=== PATIENT | male | born 1945 | race Caucasian/White ===

== ENCOUNTER 2019-07-06 20:52 | Inpatient (IN) | payer MEDICARE, SELFPAY ==
[2019-07-06] VITALS (9 sets, daily range): BP systolic 110–142; BP diastolic 75–99; PULSE 85–130; RESP 11–18; TEMP 36.7; O2SAT 96–99; BMI 26.3
--- NOTE | 2019-07-06 21:08 | EKG12_ITS ---
Test Reason : CHEST PAIN Blood Pressure : / mmHG Vent. Rate : 069 BPM Atrial Rate : 069 BPM P-R Int : 170 ms QRS Dur : 124 ms QT Int : 408 ms P-R-T Axes : 029 -45 065 degrees QTc Int : 437 ms Sinus rhythm with Premature atrial complexes Left axis deviation Right bundle branch block Nonspecific ST/T wave Abnormality Abnormal ECG Confirmed by MALU COLIN, BRITTANY ([id number]), scientific publications editor WALDO MONGE ([id number]) on 07/08/2019 9:40:33 AM Referred By: KIMBERLY Confirmed By:BRITTANY TORIBIO MD
--- NOTE | 2019-07-06 21:08 | ED.DCSUM_ITS ---
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 Not Worsened By: Movement of Arm, Movement of Torso, Breathing, Coughing Relieved By: NTG - x1 Associated Symptoms: Diaphoresis - hands. Negative for: Dyspnea, Cough, Fever, Lightheadedness, Palpitations Narrative: Patient had an episode similar to this yesterday, lasted 15-20 minutes but resolved on its own. Today it occurred with more intensity so he called 911, he was given aspirin to chew and nitroglycerin it resolved. He states then it returned for a couple minutes but resolved again and now it is gone and he feels better. No history of heart disease. Never had a stress test. Does not take aspirin. Prior Similar Symptoms: No Recent Illness/Hospitalization: No - Past Medical History (1) HTN (hypertension) Status: Chronic Past Medical History - Allergies and Home Meds Allergies/Adverse Reactions: Allergies No Known Allergies Allergy (Verified 07/06/19 20:58) Primary Care Physician: Ac Crump MD [Primary Care Provider] - Lives: Spouse/ Significant Other Smoking Status: Former smoker - quit 03/2019 Alcohol: Occasional Review of Systems General: Reports: Sweats. Denies: Chills, Fever Eyes: Denies: Visual changes - bilaterally, Diplopia ENT: Denies: Rhinorrhea, Sore throat Cardiovascular: Reports: Chest pain. Denies: Palpitations Respiratory: Denies: Dyspnea, Cough, Dyspnea on exertion Gastrointestinal: Denies: Abdominal pain, Nausea, Vomiting, Diarrhea, Melena, Hematochezia Genitourinary: Denies: Dysuria, Hematuria, Frequency Musculoskeletal: Denies: Back pain, Swelling, Extremity Pain Skin: Denies: Rash, Wounds Neurological: Denies: Headache, Weakness, Numbness Physical Exam Vital Signs/Narrative: Vital Signs Temp Pulse Resp BP Pulse Ox 07/06/19 20:53 98.1 F 85 14 132/85 H 97 Inital Vital Signs reviewed: Yes General: Well nourished, Well developed, No Acute Distress Head: Normocephalic, Atraumatic Eyes: Perrl, EOMI ENT: Moist mucous membranes, No rhinorrhea Neck: Supple, Nontender, No JVD Cardiovascular: Regular rate, Regular rhythm, No murmurs, Normal S1, Normal S2 Respiratory: No distress, CTA bilaterally, Chest nontender Abdomen: Soft, Nontender, Nondistended, Normal bowel sounds Back: Nontender, Normal Inspection Extremities: Nontender, No edema. Negative for: Calf Tenderness Skin: Normal color, No rash, No Trauma Neurological: Alert, Oriented x3, Cranial nerves II-XII grossly intact, Normal Strength, Normal Sensation Psychological: Normal affect, Normal Mood Diagnostic/Tx/Re-eval Impressions Chest X-Ray 07/06/19 21:11 IMPRESSION: No acute cardiopulmonary process. Electronically Signed: Sloane Bhatt MD at 21:38 EDT Tel , Service support , 07/06/19 21:11 Chest 1 View (Portable) [RAD] Stat Laboratory Results 07/06/19 07/06/19 20:58 20:58 WBC 8.3 RBC 4.89 Hgb 16.4 Hct 47.7 MCV 97.5 H MCH 33.5 H MCHC 34.4 RDW Std Deviation 47.4 H RDW Coeff of Channing 13.2 Plt Count 176 MPV 10.0 Immature Gran % (Auto) 0.400 Neut % (Auto) 43.0 L Lymph % (Auto) 43.8 H [place] % (Auto) 10.0 Eos % (Auto) 2.1 Baso % (Auto) 0.7 Absolute Neuts (auto) 3.6 Absolute Lymphs (auto) 3.63 Nucleated RBC % 0 Sodium 138 Potassium 3.5 Chloride 101 Carbon Dioxide 29.0 Anion Gap 8 BUN 16 Creatinine 1.14 Estim Creat Clear Calc 69.10 Est GFR (MDRD) Af Amer 81 Est GFR (MDRD) Non-Af 67 BUN/Creatinine Ratio 14.0 Glucose 100 Calcium 9.4 Troponin I 1.220 H* - Rhythm Strip Rhythm Strip: Sinus Rhythm Rate: 69 Ectopy: None - EKG Initial EKG Interpretation: Sinus Rhythm, S-T Elevation - convex 1mm in V3-[address] depression. 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 Fererira, and sent him the EKGs securely, electronically. Given that the patient is pain-free currently, he recommends not taking him to the [facility] emergently based on this EKG, but admitting him to the hospital on a nitroglycerin drip, Plavix 300 mg load, Lovenox, for unstable angina. Shortly thereafter, prior to starting the nitroglycerin drip, patient started going into rapid A. fib in the 140 range. He developed no chest discomfort or lightheadedness or palpitations or any other symptoms with this. He would then suddenly break out of it and then go back in. He remained in for little while. I discussed with Dr. Ferreira again, he advised treating him with Lopressor for now and staying with the same overall plan. I am holding nitroglycerin for now given that his pressure dropped a little with the atrial fib and he is tachycardic. After the beta-blockade, we brought his heart rate under 100, his blood pressure went up and we started a nitroglycerin drip. The patient remained symptom-free including having no chest discomfort. Plan is admission. Discussed with hospitalist. Critical care time (excluding procedures): 30-74 minutes - 35 min, including time spent discussing with patient, consultants, arranging admission, and performing direct patient care/reevaluation at the bedside ED Disposition - Plan for ED Patient: Disposition: [facility] Care [facility] Diagnosis: Acute coronary syndrome, Paroxysmal atrial fibrillation with RVR Referrals: Ac Crump MD [Primary Care Provider] -
--- NOTE | 2019-07-06 21:11 | RAD_ITS ---
STUDY: X-RAY CHEST REASON FOR EXAM: Male, 73 years old. Chest pain. Starting while resting as sternal pressure. Denies radiation or nausea. TECHNIQUE: 2 frontal images of the chest were obtained. COMPARISON: None. FINDINGS: There is no focal consolidation. Normal size heart. Normal mediastinum and theresa. Normal visualized pulmonary arteries. Normal visualized aortic arch and descending thoracic aorta. Normal visualized thoracic spine. Normal visualized ribs, clavicles, and shoulders. There is no demonstrated abnormality of the visualized soft tissue structures of the upper abdomen. RAD/Chest 1 View (Portable) IMPRESSION: No acute cardiopulmonary process. Electronically Signed: Sloane Bhatt MD at 21:38 EDT Tel , Service support ,
[2019-07-06 21:17] LABS: Absolute Lymphocyte Count 3.63 X10^3/uL (0.83-4.51); Absolute Neutrophil Count 3.6 X10^3/uL (2.0-7.7); Basophil# 0.06 X10^3/uL; Basophil% 0.7 % (0-1); Eosinophil# 0.17 X10^3/uL; Eosinophils% 2.1 % (0-5); Hematocrit 47.7 % (40-54); Hemoglobin 16.4 g/dL (13.0-16.5); Lymphocyte # 3.63 X10^3/ul (4.0); Lymphocyte % 43.8 % (19-41); Mean Corp Hgb Conc 34.4 g/dL (32-36); Mean Corpuscular Hgb 33.5 pg (27.0-32.0); Mean Corpuscular Volume 97.5 fL (80-94); Monocyte# 0.83 X10^3/uL; NRBC Flagged by Analyzer 0 % (0-5); Neutrophil # 3.56 X10^3/uL (2.7-7.7); Platelet Count 176 K/mm3 (150-450); RBC Distribution Width CV 13.2 % (11.6-14.6); RBC Distribution Width SD 47.4 fl (35.1-43.9); Red Blood Count 4.89 M/mm3 (4.6-6.2); White Blood Count 8.3 K/mm3 (4.4-11.0)
[2019-07-06] MEDS: Enoxaparin 100 MG/ML Syringe 90 MG SC (21:19)
[2019-07-06] MEDS: Clopidogrel Bisulfate 300 MG Tablet PO (21:20)
[2019-07-06] MEDS: 0.9% Normal Saline 1,000 ML 999 ML IV (21:20)
[2019-07-06] MEDS: 0.9% Normal Saline 1,000 ML 250 ML IV (21:24)
[2019-07-06 21:39] LABS: Anion Gap 8 (5-15); BUN 16 mg/dL (7-18); Calcium,Total 9.4 mg/dL (8.5-10.1); Chloride 101 mmol/L (98-107); Creatinine, Serum 1.14 mg/dL (0.70-1.30); EST Glomerular Filtration Rate 67 mL/min (>60); Est Glom Filt Rate - Afr Amer 81 mL/min (>60); Glucose 100 mg/dL (74-106); Potassium 3.5 mmol/L (3.5-5.1); Sodium Level 138 mmol/L (136-145)
[2019-07-06] MEDS: Metoprolol Tartrate 5 MG/5 ML Vial IV ×3 (21:44→22:48)
--- NOTE | 2019-07-06 22:02 | EKG12_ITS ---
Test Reason : TACHYCARDIA Blood Pressure : / mmHG Vent. Rate : 136 BPM Atrial Rate : 153 BPM P-R Int : 000 ms QRS Dur : 116 ms QT Int : 326 ms P-R-T Axes : 000 -48 -12 degrees QTc Int : 490 ms Atrial fibrillation Left axis deviation [id number] ST & T wave abnormality, consider anterior ischemia Abnormal ECG Confirmed by MALU COLIN, BRITTANY ([id number]), television news video editor WALDO MONGE ([id number]) on 07/08/2019 9:40:55 AM Referred By: KIMBERLY Confirmed By:BRITTANY TORIBIO MD
[2019-07-06] MEDS: Nitroglycerin Infusion 250 ML 1.5 MG CONT INF (22:07)
--- NOTE | 2019-07-06 23:06 | HP.PCM_ITS ---
Problem List (1) HTN (hypertension) Status: Chronic (2) Acute coronary syndrome Status: Acute (3) Paroxysmal atrial fibrillation with RVR Status: Acute History of Present Illness Date of Admission: 07/06/19 Chief Complaint: chest pain The patient is a 73 year old male patient with a significant past medical history of hypertension presents the emergency room with onset of chest pain. The onset of this pain began at 7:00 this evening while he was sitting on a couch watching television and was nonradiating. The pain was alleviated with nitroglycerin and oxygen. During observation in the emergency room the patient developed atrial fibrillation with rapid ventricular response which was controlled with a dose of Lopressor. Chest x-ray was negative for acute find ings, white blood cell count 8.3, hemoglobin 16.4, hematocrit 47.7, platelets 176, sodium 138, potassium 3.5, chloride 101, bicarb 29, BUN 16, creatinine 1.14, glucose 100, troponin elevated at 1.220. ER physician consulted bit grinder who decided to have the patient admitted to PCU and made n.p.o. for catheterization in the morning. Past Medical History Past Medical History (Chronic Problems): Chronic Problems HTN (hypertension) (Chronic) Allergies No Known Allergies Allergy (Verified 07/06/19 20:58) Home Medications: Ambulatory Orders Medication Instructions Recorded Amlodipine [Norvasc] 10 mg PO DAILY 03/02/15 Lives: Spouse/ Significant Other Smoking Status: Former smoker - quit 03/2019 Alcohol: Occasional - *Family History Maternal History Items: No pertinent history Review of Systems Constitutional: Denies: Chills, Fever, Weight Change HEENT: Denies: Head Aches, Sinus Congestion, Sinus Drainage Cardiovascular: Reports: Chest Pain, Chest Pressure. Denies: Palpitations Respiratory: Denies: Cough, Shortness of breath at rest, Sputum production Gastrointestinal: Denies: Abdominal Pain, Nausea, Vomiting Genitourinary: Denies: Dysuria Musculoskeletal: Denies: Joint Pain, Joint Tenderness Skin: Denies: Rash, Wounds Neurological: Denies: Numbness, Tingling, Focal weakness Psychiatric: Denies: Anxiety, Depression, Homicidal Ideations, Suicidal Ideations Hematologic/ Lymphatic: Denies: Easy Bruising, Easy Bleeding VTE Information - Inpt Only VTE Present on Admission: No VTE Mechan Device Prophylaxis: None VTE Pharm Prophylaxis ordered?: Yes Patient Problems: Active and Suspected Problems Acute coronary syndrome (Acute) Paroxysmal atrial fibrillation with RVR (Acute) - Physical Exam Vitals/I&O's: Vital Signs Temp Pulse Resp BP Pulse Ox 98.1 F 115 H 17 121/78 H 98 07/06/19 20:53 07/06/19 22:57 07/06/19 22:57 07/06/19 22:57 07/06/19 22:57 Oxygen Flow Rate (L/min) 2 Oxygen Delivery Method Nasal Cannula Weight: 205 lb 0.478 oz Body Mass Index (BMI) 26.3 Intake and Output for Last 24 Hours 07/04/19 07/05/19 07/06/19 23:59 23:59 23:59 Intake Total 1000 / 1000 Balance 1000 / 1000 General: Alert, Oriented x3, Cooperative HEENT: Atraumatic, Normocephalic Neck: Supple Lungs: Clear to auscultation, Normal air movement Cardiovascular: Normal S1, Normal S2, No murmurs, Irregular Rate Abdomen: Bowel Sounds Present, Soft, Non Tender Extremities: No edema, Capillary Refill Less than 3 Seconds Skin: No rashes Musculoskeletal: No Tenderness to Palpation of Joints or Extremities Neurological: Neuro grossly intact Psych/Mental Status: Normal Affect, Appropriate Laboratory Results 07/06/19 20:58: WBC 8.3, RBC 4.89, Hgb 16.4, Hct 47.7, MCV 97.5 H, MCH 33.5 H, M CHC 34.4, RDW Std Deviation 47.4 H, RDW Coeff of Channing 13.2, Plt Count 176, MPV 10.0, Immature Gran % (Auto) 0.400, Neut % (Auto) 43.0 L, Lymph % (Auto) 43.8 H, Lucas % (Auto) 10.0, Eos % (Auto) 2.1, Baso % (Auto) 0.7, Absolute Neuts (auto) 3.6, Absolute Lymphs (auto) 3.63, Nucleated RBC % 0 07/06/19 20:58: Sodium 138, Potassium 3.5, Chloride 101, Carbon Dioxide 29.0, Anion Gap 8, BUN 16, Creatinine 1.14, Estim Creat Clear Calc 69.10, Est GFR (MDRD) Af Amer 81, Est GFR (MDRD) Non-Af 67, BUN/Creatinine Ratio 14.0, Glucose 100, Calcium 9.4, Troponin I 1.220 H* Current Medications Sodium Chloride () 1,000 mls @ 250 mls/hr IV .Q4H [facility] Last Admin: 07/06/19 21:24 Dose: 250 mls/hr Documented by: Nitroglycerin/Dextrose () 250 mls @ 3 mls/hr CONT INF .[id number] [facility]; Protocol Last Admin: 07/06/19 22:03 Dose: Not Given Documented by: Nitroglycerin/Dextrose () 250 mls @ 1.5 mls/hr CONT INF .[id number] [facility]; Protocol Last Admin: 07/06/19 22:07 Dose: 2.5 mcg/min, 1.5 mls/hr Documented by: Sodium Chloride () 1,000 mls @ 999 mls/hr IV .Q1H1M ONE Stop: 07/06/19 23:23 Last Infusion: 07/06/19 22:25 Dose: Infused Documented by: Assessment/Plan All Active Problems Acute coronary syndrome (Acute) Paroxysmal atrial fibrillation with RVR (Acute) Chronic Problems HTN (hypertension) (Chronic) Plan 1. Acute coronary syndrome?admit to progressive care unit, make patient n.p.o., consult Dr. Ferreira, plan catheterization in the morning, cycle cardiac enzymes, will order morphine, oxygen, nitroglycerin, aspirin 2. Atrial fibrillation?monitor for rate control, will cover with low molecular weight heparin 1 dose this evening and can decide long-term strategy based on results of tomorrow's heart catheterization. 3. Hold Norvasc while n.p.o. for hypertension Inpatient E&M: [id number] Init Hosp L3
[2019-07-07] VITALS (41 sets, daily range): BP systolic 110–150; BP diastolic 69–108; PULSE 57–115; RESP 11–20; TEMP 36.7–37.2; O2SAT 88–98; BMI 25.4; BMI 26.3
--- NOTE | 2019-07-07 00:15 | EKG12_ITS ---
Test Reason : CP ADMIT Blood Pressure : / mmHG Vent. Rate : 063 BPM Atrial Rate : 063 BPM P-R Int : 190 ms QRS Dur : 112 ms QT Int : 500 ms P-R-T Axes : 007 -43 006 degrees QTc Int : 511 ms Sinus rhythm with Premature atrial complexes Left axis deviation T wave abnormality, consider anterolateral ischemia Prolonged QT Abnormal ECG When compared with ECG of 08-MAR-2015 06:48, Premature atrial complexes are now Present Nonspecific T wave abnormality now evident in Inferior leads T wave inversion now evident in Anterior leads QT has lengthened Confirmed by ERIKA COLIN, LISA ([id number]), editor news USHA BANSAL ([id number]) on 07/14/2019 2:27:46 PM Referred By: DR THOMAS Confirmed By:DOMINIQUE JAMES MD
[2019-07-07] MEDS: 0.9% Normal Saline 1,000 ML 125 ML IV (00:45)
[2019-07-07 03:55] LABS: Absolute Lymphocyte Count 2.11 X10^3/uL (0.83-4.51); Absolute Neutrophil Count 3.7 X10^3/uL (2.0-7.7); Basophil# 0.03 X10^3/uL; Basophil% 0.5 % (0-1); Eosinophil# 0.09 X10^3/uL; Eosinophils% 1.4 % (0-5); Hematocrit 42.2 % (40-54); Hemoglobin 14.3 g/dL (13.0-16.5); Lymphocyte # 2.11 X10^3/ul (4.0); Lymphocyte % 32.1 % (19-41); Mean Corp Hgb Conc 33.9 g/dL (32-36); Mean Corpuscular Hgb 32.6 pg (27.0-32.0); Mean Corpuscular Volume 96.1 fL (80-94); Mean Platelet Vol. 9.8 fl (6.2-12.0); Monocyte# 0.61 X10^3/uL; Monocyte% 9.3 % (0-10); NRBC Flagged by Analyzer 0 % (0-5); Neutrophil # 3.72 X10^3/uL (2.7-7.7); Neutrophil % 56.4 % (47-70); Platelet Count 192 K/mm3 (150-450); RBC Distribution Width SD 46.5 fl (35.1-43.9); Red Blood Count 4.39 M/mm3 (4.6-6.2); White Blood Count 6.6 K/mm3 (4.4-11.0)
[2019-07-07 04:04] LABS: Prothrombin Time (Protime)PT. 13.4 SECONDS (11.7-14.9)
[2019-07-07 04:30] LABS: Anion Gap 8 (5-15); BUN 12 mg/dL (7-18); BUN/Creat Ratio 16.7 RATIO (10-20); Calcium,Total 8.1 mg/dL (8.5-10.1); Chloride 109 mmol/L (98-107); Cholesterol 134 mg/dL (200); Creatinine, Serum 0.72 mg/dL (0.70-1.30); EST Glomerular Filtration Rate 114 mL/min (>60); Est Glom Filt Rate - Afr Amer 138 mL/min (>60); Estimated Creatinine Clearance 80.98 ml/min; Glucose 106 mg/dL (74-106); High Density Lipoprotein 65 mg/dL; Potassium 3.9 mmol/L (3.5-5.1); Sodium Level 141 mmol/L (136-145); Triglycerides 74 mg/dL; Very Low Density Lipoprotein 15 mg/dL (5-40)
--- NOTE | 2019-07-07 05:55 | EKG12_ITS ---
Test Reason : AM EKG Blood Pressure : / mmHG Vent. Rate : 065 BPM Atrial Rate : 065 BPM P-R Int : 184 ms QRS Dur : 114 ms QT Int : 488 ms P-R-T Axes : 000 -43 026 degrees QTc Int : 507 ms Sinus rhythm with Premature atrial complexes Left axis deviation T wave abnormality, consider anterolateral ischemia Prolonged QT Abnormal ECG When compared with ECG of 07-JUL-2019 00:58, MANUAL COMPARISON REQUIRED, DATA IS UNCONFIRMED Confirmed by ERIKA COLIN, LISA ([id number]), news editor USHA BANSAL ([id number]) on 07/14/2019 2:29:03 PM Referred By: XIN Confirmed By:DOMINIQUE JAMES MD
[2019-07-07] MEDS: Aspirin E.C. 81 MG Tablet PO (06:14)
--- NOTE | 2019-07-07 08:59 | CL.I_ITS ---
Patient Name: FADY TERRY Study Date: 07/07/2019 Performing: Titus Ferreira MD Ht: 75.19 inches 191 cm : 1945 Wt: 205.03 lbs 93 kg Age: 73 Gender: male BSA: 2.22 PROCEDURE(S) PERFORMED QQ10-ACA/COR/LV [id number] W OR WO PTCA, SINGLE CORONARY ARTERY [id number] AORTAGRAM CLINICAL PROFILE AND CO-MORBIDITIES Patient presents with NSTEMI for urgent cardiac cath Indications: New Onset Angina <= 2 months, Worsening Angina, Suspected CAD, Cardiac Arrythmia Heart Failure: None Stress/Imaging Stress/Image Study Performed: No Angina Classification Anginal Classification w/in 2 Weeks: CCS III CAD Presentations: Unstable angina. Non-STEMI. 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 RECOMMENDATIONS Referred for immediate PCI Management as per referring Display Department Manager Highly recommend quitting all tobacco products Follow up with primary diesel scoop operator Risk factor modification ASA Indefinitley Plavix for at least 12 months Routine post interventional care Refer for Outpatient Cardiac Rehab Manual sheath removal per protocol Follow up with Dr. Ferreira Manual sheath removal as pt is too shallow for closure. DESCRIPTION OF PROCEDURE The patient arrived to the procedure lab. The risks and benefits of the procedure as well as a full d escription of our services here and lack of surgical backup were fully explained to the patient and/o r their significant other prior to the catheterization. The Timeout was completed, verifying the gloria ect patient and procedure. The patient's procedural site was prepped and draped in the usual fashion. Local anesthetic was given subcutaneously to right groin region with Lidocaine 2%. Using a modified Seldinger technique, arterial access was obtained via the right femoral artery, a 4Fr sheath was inse rted. Left Coronary Artery selective angiography was performed in multiple views using a 4 Fr. JL5 c atheter. Right Coronary Artery selective angiography was then performed in multiple views using a 4 F r. 3DRC catheter. Left Ventriculography was performed in LAWLER projection using a 4 Fr. Pigtail cathete r. LV to AO pullback pressures were then recorded. Abdominal aorta selective angiography was then performed in single viewThe images were reviewed and options discussed. A decision was then made to proceed with an Intervention, IVUS or other adjunct procedure. Arterial sheath was exchanged for a 6 Fr 55cm Sheath. EBU 3.75 Guide catheter was inserted and en gaged into the LCA. Hubbard BMW Guide wire was advanced to the LAD. Emerge 2.0 x 12 Balloon cathete r was inserted. Balloon catheter was advanced across lesion in the LAD, mid. PTCA balloon inflated at 6 atms for 14 secs. PTCA balloon inflated at 8 atms for 13 secs. Angiogram performed post balloon di latation. PTCA balloon inflated at 10 atms for 17 secs. PTCA balloon inflated at 10 atms for 10 secs. Synergy 2.5 x 16 Drug Eluting stent was inserted. Drug Eluting stent was advanced across the lesion in the LAD, mid. Angiogram performed post stent deployment. NC Emerge 3.0 x 8 Balloon catheter was in serted. Balloon catheter was advanced across lesion in the LAD, mid. Angiogram performed pre balloon dilatation. Angiogram performed post balloon dilatation. NC Emerge 3.5 x 8 Balloon catheter was inser heri. Balloon catheter was advanced across lesion in the LAD, mid. Angiogram performed pre balloon dilatation. Arterial sheath was exchanged for a 7 Fr Sheath. The arterial sheath was suture d in place and capped CORONARY ANGIOGRAPHY DOMINANCE: Right Dominant LEFT HEART ASSESSMENT Left Ventricular Ejection Fraction: by LV Gram 65 % Normal Left Ventricular systolic function LVEDP: 24 mmHg Elevated Left Ventricular End Diastolic Pressure Normal LV wall motion LEFT MAIN: Mild calcification LEFT ANTERIOR DESCENDING ARTERY: PROX LAD: Mild luminal irregularities less than 30%, Moderate calcification MID LAD: Mild calcification, 75 % Stenosis, Mild luminal irregularities less than 30% DISTAL LAD: Mild luminal irregularities less than 30% CIRCUMFLEX ARTERY: Mild luminal irregularities less than 30% RIGHT CORONARY ARTERY: Mild luminal irregularities less than 30% MID RCA: Mild luminal irregularities less than 30% RT PDA: Proximal - Mild luminal irregularities less than 30% PERIPHERAL FINDINGS: Abdominal 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 Artery Tortuous Left Common Iliac Artery Tortuous INTERVENTION INFORMATION LESION SITE: LAD (Mid) Lesion Complexity: Non-High/Non-C, lesion at bifurcation: No, thrombus present: No, lesion length: 16 mm, culprit lesion: Yes Pre Stenosis: 75 % Pre intervention JAIRO flow: 3 Post Stenosis: 0 % Post intervention JAIRO flow: 3 Lesion Devices: Jorge L Sci EMERGE MR 2.00x12 BALLOON Cotter .014 BMW Hubbard Straight 190cm Cook 6F 55cm Sheath Medtronic 6 Fr EBU3.75 100cm Guide Catheter Jorge L Sci Synergy MR JADE 2.50x16 Jorge L Sci NC EMERGE MR 3.00x08 BALLOON Jorge L Sci NC EMERGE MR 3.50x08 BALLOON COMPLICATIONS No Complications PROCEDURE MEDICATIONS Oxygen: 2 L/min via nasal cannula Heparin 6000 unit(s) IV 07/07/2019 08:21:19 Nitro drip 2.5mcg/min ^FreeText^ 07/07/2019 07:51:22 Nitro 200 mcg IC 07/07/2019 08:24:59 Nitro 200 mcg IC 07/07/2019 08:38:41 Nitro glycerin 25mg / 250ml D5W @ 5 mcg/min (increased rate) 07/07/2019 08:47:40 Plavix 75 mg PO 07/07/2019 07:50:04 IV Bolus: .9 NaCl ml total 07/07/2019 08:29:10 SUMMARY OF HEMODYNAMIC DATA Time AIR REST ECG 07:48:14 AO 146/81 (107) SA 08:11:04 LV 161/-7, 22 08:17:22 LV 160/-13, 30 08:17:29 LVp 158/-15, 19 08:17:36 AOp 156/76 (110) 08:17:41 Signed By Titus Ferreira MD On 07/07/2019 08:59:15 Titus Ferreira MD
[2019-07-07 09:11] LABS: ACT Activated Clotting Time 202 sec (74-137)
[2019-07-07] MEDS: 0.9% Normal Saline 1,000 ML 150 ML IV (09:30)
--- NOTE | 2019-07-07 09:49 | EKG12_ITS ---
Test Reason : POST PCI Blood Pressure : / mmHG Vent. Rate : 066 BPM Atrial Rate : 066 BPM P-R Int : 182 ms QRS Dur : 112 ms QT Int : 476 ms P-R-T Axes : -06 -49 012 degrees QTc Int : 499 ms Sinus rhythm with Premature atrial complexes Left axis deviation T wave abnormality, consider anterior ischemia Prolonged QT Abnormal ECG When compared with ECG of 07-JUL-2019 05:29, MANUAL COMPARISON REQUIRED, DATA IS UNCONFIRMED Confirmed by ERIKA COLIN, LISA ([id number]), editorial director USHA BANSAL ([id number]) on 07/14/2019 2:26:29 PM Referred By: SHARON Confirmed By:DOMINIQUE JAMES MD
--- NOTE | 2019-07-07 10:44 | CASEMGMT ---
RN CM Assessment Note Presentation: PTCA mid LAD Intro role of CM and purpose of RN CM assessment to patient in room. Pt is awake, alert and able to participate in assessment. Demographics, PCP and Pharmacy verified. Pt plans to return home. Pt still works, discussed physician will let him know when he is able to return to work. Pt denies any dc needs. PCP: Dr. Crump Specialists: Dr. Ferreira Preferred [facility]acy: [facility] Insurance: [place] [facility] Prescription Benefit: yes. Plavix planned on dc. LNOK : , Ana María Galicia Living Arrangements: Lives independently with .Denies any care needs. Transportation: drives DME: none HHC: none Patient DC goals: Home on dc DC PLAN: Home. No dc needs identified @ this time. Soheila BENJAMINN RN ACM
--- NOTE | 2019-07-07 11:01 | CRPHASE1 ---
Patient Communication PHII Cardiac Rehab Discussed with Patient:: Yes Guide to Cardiac Rehab Given to Patient:: Yes Cardiac Rehab Facility Choice List Given to Patient:: Yes - Patient states he resides closest to [facility] Choice Program Other:: Communication Given to CR, With permission faxed order and referral information Record Cutter:: Titus Ferreira Refer Phase II Cardiac Rehab:: Yes - [facility] Sessions:: 36 sessions - 3 days/wk, 12 weeks Risk Factors/Lifestyle Laboratory Values: Cardiac Rehab Phase I Labs Triglycerides 74 mg/dL (-199) 07/07/19 03:43 Cholesterol 134 mg/dL (200) 07/07/19 03:43 LDL Cholesterol 54 mg/dL (0-130) 07/07/19 03:43 HDL Cholesterol 65 mg/dL (40-) 07/07/19 03:43 Cardiac Rehabilitation Info Cardiac Rehabilitation Program Information: Cardiac Rehabilitation is important for patients like you who are recovering from a heart problem. Cardiac rehabilitation programs are recognized as integral to the continued care of the patient with coronary heart disease. The cardiac rehabilitation program is designed to optimize a patient's physical, psychological, and social functioning. Health healthcare insurance sales agent work in cardiac rehabilitation programs and assist you with getting the treatments you need to get stronger and healthier - like exercise, healthy eating habits, and medications. Cardiac rehabilitation has been show to help people with heart problems live longer and have better life enjoyment than people who do not go to cardiac rehabilitation. Please contact the Cardiac Rehabilitation Program at [facility] at in two weeks if you have not heard from them.
--- NOTE | 2019-07-07 11:05 | CRPH1.INSTRU ---
General Education CAD and cardiac anatomy and function:: Patient communicates acknowledgment Explanation of diagnoses and procedures:: Patient communicates acknowledgment Sign/Symptoms of AK:: Patient communicates acknowledgment Antiplatelet therapy: Patient communicates acknowledgment Proper use of NTG-SL: Patient communicates acknowledgment Emergency procedures and activation of EMS: Patient communicates acknowledgment Compliance of all prescribed medications: Patient communicates acknowledgment Smoking Recommendations Include:: Previous smoker; encourage continued cessation Nicotine/Smoking Response Code:: Patient communicates acknowledgment
[2019-07-07] MEDS: TITRATION PARAMETER CHANGE 1 EACH IV (14:13)
[2019-07-07] MEDS: Carvedilol 3.125 MG TABLET PO ×2 (14:16→22:22)
[2019-07-07] MEDS: Losartan Potassium 25 MG Tablet PO (14:16)
--- NOTE | 2019-07-07 15:22 | PN_ITS ---
Patient Problems: Active and Suspected Problems (Last Updated 07/07/19 @ 10:13 by Erum Matias) NSTEMI (non-ST elevated myocardial infarction) (Acute) Acute coronary syndrome (Acute) Paroxysmal atrial fibrillation with RVR (Acute) Subjective: Patient was seen and examined today, I talked with cardiology about his care today, he underwent a cardiac catheterization today with insertion of a drug- eluting stent in the LAD. Patient is now in the ICU, he has no complaints of any shortness of breath or chest pain. - Physical Exam Vitals/I&O's: Vital Signs Temp Pulse Resp BP Pulse Ox 99.0 F 65 17 119/89 H 92 07/07/19 12:00 07/07/19 13:30 07/07/19 13:30 07/07/19 13:30 07/07/19 13:30 Oxygen Flow Rate (L/min) 2 Oxygen Delivery Method Room Air Weight: 92.6 kg Body Mass Index (BMI) 25.4 Intake and Output for Last 24 Hours 07/05/19 07/06/19 07/07/19 23:59 23:59 23:59 Intake Total 1000 / 1000 1281.21 / 1281.21 Output Total 2079 / 2079 Balance 1000 / 1000 -798.79 / -798.79 General: Alert, Oriented x3, Cooperative, No apparent distress, Well developed HEENT: Atraumatic, PERRLA, EOMI, Normocephalic Oral: Moist Mucosa Neck: Supple, No JVD, Trachea Midline, Thyroid Normal Size and Texture Lungs: Clear to auscultation, Normal air movement, No rhonchi, No wheeze, No rales Cardiovascular: Regular rate, Regular Rhythm, Normal S1, Normal S2, No murmurs, PMI Normal, No rub noted Abdomen: Bowel Sounds Present, Soft, Non Tender, Non-Distended Extremities: No clubbing, No cyanosis, No edema, Capillary Refill Less than 3 Seconds Skin: No rashes, No breakdown Musculoskeletal: No Tenderness to Palpation of Joints or Extremities Neurological: Cranial nerves II-XII grossly intact, Neuro grossly intact, Sensory exam intact to light touch and pain Psych/Mental Status: Normal Affect, Appropriate, Alert and oriented to time, place, person, mood and affect Laboratory Results 07/06/19 20:58: WBC 8.3, RBC 4.89, Hgb 16.4, Hct 47.7, MCV 97.5 H, MCH 33.5 H, MCHC 34.4, RDW Std Deviation 47.4 H, RDW Coeff of Channing 13.2, Plt Count 176, MPV 1 0.0, Immature Gran % (Auto) 0.400, Neut % (Auto) 43.0 L, Lymph % (Auto) 43.8 H, [place] % (Auto) 10.0, Eos % (Auto) 2.1, Baso % (Auto) 0.7, Absolute Neuts (auto) 3.6, Absolute Lymphs (auto) 3.63, Nucleated RBC % 0 07/06/19 20:58: Sodium 138, Potassium 3.5, Chloride 101, Carbon Dioxide 29.0, Anion Gap 8, BUN 16, Creatinine 1.14, Estim Creat Clear Calc 69.10, Est GFR (MDRD) Af Amer 81, Est GFR (MDRD) Non-Af 67, BUN/Creatinine Ratio 14.0, Glucose 100, Calcium 9.4, Troponin I 1.220 H* 07/07/19 00:30: Troponin I 1.350 H* 07/07/19 03:43: WBC 6.6, RBC 4.39 L, Hgb 14.3, Hct 42.2, MCV 96.1 H, MCH 32.6 H, MCHC 33.9, RDW Std Deviation 46.5 H, RDW Coeff of Channing 13.0, Plt Count 192, MPV 9.8, Immature Gran % (Auto) 0.300, Neut % (Auto) 56.4, Lymph % (Auto) 32.1, [place] % (Auto) 9.3, Eos % (Auto) 1.4, Baso % (Auto) 0.5, Absolute Neuts (auto) 3.7, Absolute Lymphs (auto) 2.11, Nucleated RBC % 0 07/07/19 03:43: PT 13.4, INR 1.0 07/07/19 03:43: Sodium 141, Potassium 3.9, Chloride 109 H, Carbon Dioxide 24.0, Anion Gap 8, BUN 12, Creatinine 0.72, Estim Creat Clear Calc 80.98, Est GFR (MDRD) Af Amer 138, Est GFR (MDRD) Non-Af 114, BUN/Creatinine Ratio 16.7, Glucose 106, Calcium 8.1 L, Triglycerides 74, Cholesterol 134, LDL Cholesterol 54, VLDL Cholesterol 15, HDL Cholesterol 65 07/07/19 03:43: Troponin I 1.260 H* 07/07/19 08:45: Activated Clotting Time 202 H Current Medications Acetaminophen (Tylenol) 650 mg PO Q6H PRN PRN PRN Reason: Pain Score 1-3/10 Aspirin (Ecotrin) 81 mg PO DAILY@0800 [facility] Last Admin: 07/07/19 06:14 Dose: 81 mg Documented by: Atorvastatin Calcium (Lipitor) 80 mg PO QHS [facility] Atropine Sulfate () 0.5 mg IV UD PRN PRN Reason: HR <50 bpm Carvedilol (Coreg) 3.125 mg PO BID [facility] Last Admin: 07/07/19 14:16 Dose: 3.125 mg Documented by: Clopidogrel Bisulfate (Plavix) 75 mg PO DAILY [facility] Heparin Sodium (Beef Lung) (Heparin 500 Unit/5 Ml (100/Ml)) 500 unit IV UD PRN PRN Reason: HEPARIN FLUSH Nitroglycerin/Dextrose () 250 mls @ 1.5 mls/hr CONT INF .[id number] [facility]; Protocol Last Titration: 07/07/19 14:00 Dose: 5 mcg/min, 3 mls/hr Documented by: Sodium Chloride () 1,000 mls @ 150 mls/hr IV .[id number] [facility] Stop: 07/07/19 16:28 Last Infusion: 07/07/19 12:00 Dose: 150 mls/hr Documented by: Labetalol HCl (Trandate) 5 mg IV X1 PRN PRN Reason: SBP > 160 when pulling sheath Stop: 07/09/19 09:50 Lorazepam (Ativan) 1 mg PO Q6H PRN PRN PRN Reason: BACK SPASMS/ANXIETY Losartan Potassium (Cozaar) 25 mg PO DAILY [facility] Last Admin: 07/07/19 14:16 Dose: 25 mg Documented by: Metoclopramide HCl (Reglan) 5 mg IV Q6H PRN PRN PRN Reason: NAUSEA/VOMITING Morphine Sulfate () 2 - 4 mg IV Q4H PRN PRN PRN Reason: Pain Score 1-10/10 Nitroglycerin (Nitrostat) 0.4 mg SUBLINGUAL Q5M PRN PRN Reason: CARDIAC/CHEST PAIN Sodium Chloride () 10 - 40 ml IV UD PRN PRN Reason: SALINE FLUSH Sodium Chloride () 500 ml IV BOLUS PRN PRN Reason: VASO-VAGAL PROTOCOL Medical Necessity - Tobacco Use Smoking Status: Former smoker Assessment/Plan All Active Problems (Last Updated 07/07/19 @ 10:13 by Erum Matias) NSTEMI (non-ST elevated myocardial infarction) (Acute) Acute coronary syndrome (Acute) Paroxysmal atrial fibrillation with RVR (Acute) #1 [id number] post JADE LAD postop day 0-continue present care, cardiology is seeing patient. Patient will have an echocardiogram performed #2 paroxysmal atrial fibrillation-now in sinus rhythm #3 nonobstructive coronary artery disease #4 essential hypertension Inpatient E&M: 26279 Subs Hosp L2
[2019-07-07] MEDS: Atorvastatin Calcium 80 MG Tablet PO (22:22)
[2019-07-08] VITALS (11 sets, daily range): BP systolic 100–141; BP diastolic 66–87; PULSE 53–68; RESP 14–22; TEMP 36.4–37.1; O2SAT 90–97
[2019-07-08 04:49] LABS: Hematocrit 42.6 % (40-54); Hemoglobin 14.3 g/dL (13.0-16.5); Mean Corp Hgb Conc 33.6 g/dL (32-36); Mean Corpuscular Hgb 32.2 pg (27.0-32.0); Mean Corpuscular Volume 95.9 fL (80-94); Mean Platelet Vol. 9.9 fl (6.2-12.0); Platelet Count 178 K/mm3 (150-450); RBC Distribution Width CV 12.9 % (11.6-14.6); Red Blood Count 4.44 M/mm3 (4.6-6.2); White Blood Count 7.8 K/mm3 (4.4-11.0)
[2019-07-08 05:07] LABS: AST(SGOT) 20 U/L (15-37); Alanine Aminotransfer ALT/SGPT 23 U/L (16-61); Albumin, Serum 3.2 g/dL (3.2-5.0); Alkaline Phosphatase 66 U/L (45-117); Anion Gap 6 (5-15); BUN 12 mg/dL (7-18); BUN/Creat Ratio 16.7 RATIO (10-20); Calcium,Total 8.4 mg/dL (8.5-10.1); Chloride 106 mmol/L (98-107); Creatinine, Serum 0.72 mg/dL (0.70-1.30); EST Glomerular Filtration Rate 114 mL/min (>60); Est Glom Filt Rate - Afr Amer 138 mL/min (>60); Estimated Creatinine Clearance 80.98 ml/min; Globulin 3.1 g/dL (2.2-4.2); Glucose 120 mg/dL (74-106); Potassium 3.4 mmol/L (3.5-5.1); Protein, Total 6.3 g/dL (6.4-8.2); Sodium Level 138 mmol/L (136-145)
[2019-07-08] MEDS: Carvedilol 3.125 MG TABLET PO (08:26)
[2019-07-08] MEDS: Losartan Potassium 25 MG Tablet PO (08:26)
[2019-07-08] MEDS: Clopidogrel Bisulfate 75 MG Tablet PO (08:26)
[2019-07-08] MEDS: Aspirin E.C. 81 MG Tablet PO (08:33)
--- NOTE | 2019-07-08 09:15 | PCM.DC ---
- Discharge Diagnoses Current Active Problems: Current Active and Chronic Problems (Last Updated 07/07/19 @ 10:13 by Erum Matias) NSTEMI (non-ST elevated myocardial infarction) (Acute) Atherosclerosis of coronary artery of [place] heart without angina pectoris (Chronic) Stented coronary artery (Chronic 07/07/19) Normal Left Ventricular systolic function LVEF: by LV gram 65 % Non obstructive coronary arteries.Single vessel CAD of the mid LAD. Successful PTCA/JADE mid LAD with a 2.5 x 16 Promus Synergy 07/07/2019 per DJN @ [facility] HTN (hypertension) (Chronic) Acute coronary syndrome (Acute) Paroxysmal atrial fibrillation with RVR (Acute) You will use the following diet at home:: Cardiac Your food should be the consistency of: Regular Your liquids should be the consistency of: Regular/Thin Discharge Activity: Return to Normal Activity Call your doctor if you observe: Fever of 101 or Higher, Shortness of breath, Dizziness, Fainting spells, Swelling in the ankles, Chest pain, Increased palpitations (irregular heartbeat) Allergies/Adverse Reactions: Allergies No Known Allergies Allergy (Verified 07/06/19 20:58) Medications to take at Discharge Aspirin E.C. [Ecotrin] 81 mg PO DAILY@0800 #60 tab 07/08/19 Atorvastatin Calcium [Lipitor] 80 mg PO QHS #60 tab 07/08/19 Carvedilol [Coreg (Beta Enrique)] 3.125 mg PO BID #120 tab 07/08/19 Clopidogrel Bisulfate [Plavix] 75 mg PO DAILY #60 tab 07/08/19 Losartan Potassium [Cozaar] 25 mg PO DAILY #60 tab 07/08/19 The following prescriptions were given: Carvedilol [Coreg (Beta Enrique)] 3.125 mg PO BID #120 tab Transmission Status: Sent to [facility] Losartan Potassium [Cozaar] 25 mg PO DAILY #60 tab Transmission Status: Pending to [facility] Aspirin E.C. [Ecotrin] 81 mg PO DAILY@0800 #60 tab Transmission Status: Pending to [facility] Atorvastatin Calcium [Lipitor] 80 mg PO QHS #60 tab Transmission Status: Pending to [facility] Clopidogrel Bisulfate [Plavix] 75 mg PO DAILY #60 tab Transmission Status: Pending to [facility] Orders to be completed after discharge: Phase II, Outpatient Cardiac Rehab Location: None Selected Primary Care Physician: Ac Crump MD [Primary Care Provider] - Please follow up with your Primary Care Physician in: 1-2 weeks, can do telehealth Test Results: Test results from this visit will be discussed in further detail at your follow-up appointment, if applicable. Please Follow Up With: Titus Ferreira MD When: 2-4 weeks
--- NOTE | 2019-07-08 09:17 | PCM.DC.SUM ---
Discharge Date and Diagnosis - Problem List Patient Problems: Active and Suspected Problems (Last Updated 07/07/19 @ 10:13 by Erum Matias) NSTEMI (non-ST elevated myocardial infarction) (Acute) Acute coronary syndrome (Acute) Paroxysmal atrial fibrillation with RVR (Acute) Date of Admission: 07/06/19 Date of Discharge: 07/08/19 - Primary Discharge Diagnosis Active and Suspected Problems (Last Updated 07/07/19 @ 10:13 by Erum Matias) NSTEMI (non-ST elevated myocardial infarction) (Acute) Acute coronary syndrome (Acute) Paroxysmal atrial fibrillation with RVR (Acute) - Secondary Discharge Diagnosis Chronic Problems (Last Updated 07/07/19 @ 10:13 by Erum Matias) Atherosclerosis of coronary artery of [place] heart without angina pectoris (Chronic) Stented coronary artery (Chronic 07/07/19) Normal Left Ventricular systolic function LVEF: by LV gram 65 % Non obstructive coronary arteries.Single vessel CAD of the mid LAD. Successful PTCA/JADE mid LAD with a 2.5 x 16 Promus Synergy 07/07/2019 [address] DJN @ [facility] HTN (hypertension) (Chronic) Hospital Course and Treatment Imaging Results: CXR: IMPRESSION: No acute cardiopulmonary process. Cardiac Cath: CLINICAL PROFILE AND CO-MORBIDITIES Patient presents with NSTEMI for urgent cardiac cath Indications: New Onset Angina <= 2 months, Worsening Angina, Suspected CAD, Cardiac Arrythmia Heart Failure: None Stress/Imaging Stress/Image Study Performed: No Angina Classification Anginal Classification w/in 2 Weeks: CCS III CAD Presentations: Unstable angina. Non-STEMI. 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 RECOMMENDATIONS Referred for immediate PCI Management as per referring [employer] Department Chair Highly recommend quitting all tobacco products Follow up with primary bolt threader Risk factor modification ASA Indefinitley Plavix for at least 12 months Routine post interventional care Refer for Outpatient Cardiac Rehab Manual sheath removal per protocol Follow up with Dr. Ferreira Manual sheath removal as pt is too shallow for closure. Consults: Cardiology Operations: None Procedures: Cardiac catheterization Summary of Care Provided: Per HPI: The patient is a 73 year old male patient with a significant past medical history of hypertension presents the emergency room with onset of chest pain. The onset of this pain began at 7:00 this evening while he was sitting on a couch watching television and was nonradiating. The pain was alleviated with nitroglycerin and oxygen. During observation in the emergency room the patient developed atrial fibrillation with rapid ventricular response which was controlled with a dose of Lopressor. Chest x-ray was negative for acute findings, white blood cell count 8.3, hemoglobin 16.4, hematocrit 47.7, platelets 176, sodium 138, potassium 3.5, chloride 101, bicarb 29, BUN 16, creatinine 1.14, glucose 100, troponin elevated at 1.220. ER physician consulted bolt threader who decided to have the patient admitted to PCU and made n.p.o. for catheterization in the morning. Hospital Course: 1. NSTEMI/paroxysmal [id number]-old male presenting with chest pressure. He was also found to have an episode of A. fib with RVR, which resolved and returned to sinus rhythm after dose of Lopressor. He had a cardiac cath which necessitated a drug-eluting stent to the LAD. He has been doing fine, chest pain has been resolved as has the A. fib. Cardiology was consulted and the recommendations were to place him on Coreg as well as aspirin and Plavix and a statin. Also will discontinue his Norvasc and start him on losartan. He will need to follow-up with his primary care doctor in 1 to 2 weeks, this can be completed via telehealth because of the coronavirus. Also you need to follow-up with his bolt threader as an outpatient as well. I discussed the discharge plan with him and he expressed understanding to the risks and benefits of going home. Patient Problems: Active and Suspected Problems (Last Updated 07/07/19 @ 10:13 by Erum Matias) NSTEMI (non-ST elevated myocardial infarction) (Acute) Acute coronary syndrome (Acute) Paroxysmal atrial fibrillation with RVR (Acute) - Physical Exam Vitals/I&O's: Vital Signs Temp Pulse Resp BP Pulse Ox 98.1 F 56 L 20 H 131/87 H 90 07/08/19 08:00 07/08/19 07:00 07/08/19 08:00 07/08/19 08:00 07/08/19 08:00 Oxygen Flow Rate (L/min) 2 Oxygen Delivery Method Room Air Weight: 204 lb 2.369 oz Body Mass Index (BMI) 25.4 Intake and Output for Last 24 Hours 07/06/19 07/07/19 07/08/19 23:59 23:59 23:59 Intake Total 1000 / 1000 3253.54 / 3733.54 480 / 480 Output Total 3030 / 3330 500 / 500 Balance 1000 / 1000 223.54 / 403.54 - General: Alert, Oriented x3, Cooperative, No apparent distress HEENT: Atraumatic, PERRLA, EOMI, Normocephalic Oral: Moist Mucosa Neck: Supple, No JVD Lungs: Clear to auscultation, Normal air movement, No rhonchi, No wheeze, No rales Cardiovascular: Regular rate, Regular Rhythm, Normal S1, Normal S2, No murmurs Abdomen: Soft, Non Tender, Non-Distended, No Hepato-splenomegaly Extremities: No edema, Capillary Refill Less than 3 Seconds Skin: No rashes, No breakdown Neurological: Neuro grossly intact, Sensory exam intact to light touch and pain Psych/Mental Status: Normal Affect, Appropriate Laboratory Results 07/08/19 04:40: WBC 7.8, RBC 4.44 L, Hgb 14.3, Hct 42.6, MCV 95.9 H, MCH 32.2 H, MCHC 33.6, RDW Std Deviation 46.0 H, RDW Coeff of Channing 12.9, Plt Count 178, MPV 9.9 07/08/19 04:40: Sodium 138, Potassium 3.4 L, Chloride 106, Carbon Dioxide 26.0, Anion Gap 6, BUN 12, Creatinine 0.72, Estim Creat Clear Calc 80.98, Est GFR (MDRD) Af Amer 138, Est GFR (MDRD) Non-Af 114, BUN/Creatinine Ratio 16.7, Glucose 120 H, Calcium 8.4 L, Total Bilirubin 0.60, AST 20, ALT 23, Alkaline Phosphatase 66, Total Protein 6.3 L, Albumin 3.2, Globulin 3.1, Albumin/Globulin Ratio 1.0 Current Medications Acetaminophen (Tylenol) 650 mg PO Q6H PRN PRN PRN Reason: Pain Score 1-3/10 Aspirin (Ecotrin) 81 mg PO DAILY@0800 [facility] Last Admin: 07/08/19 08:33 Dose: 81 mg Documented by: Atorvastatin Calcium (Lipitor) 80 mg PO QHS [facility] Last Admin: 07/07/19 22:22 Dose: 80 mg Documented by: Atropine Sulfate () 0.5 mg IV UD PRN PRN Reason: HR <50 bpm Carvedilol (Coreg) 3.125 mg PO BID [facility] Last Admin: 07/08/19 08:26 Dose: 3.125 mg Documented by: Clopidogrel Bisulfate (Plavix) 75 mg PO DAILY [facility] Last Admin: 07/08/19 08:26 Dose: 75 mg Documented by: Heparin Sodium (Beef Lung) (Heparin 500 Unit/5 Ml (100/Ml)) 500 unit IV UD PRN PRN Reason: HEPARIN FLUSH Nitroglycerin/Dextrose () 250 mls @ 1.5 mls/hr CONT INF .[id number] [facility]; Protocol Last Titration: 07/07/19 19:30 Dose: Infused Documented by: Labetalol HCl (Trandate) 5 mg IV X1 PRN PRN Reason: SBP > 160 when pulling sheath Stop: 07/09/19 09:50 Lorazepam (Ativan) 1 mg PO Q6H PRN PRN PRN Reason: BACK SPASMS/ANXIETY Losartan Potassium (Cozaar) 25 mg PO DAILY [facility] Last Admin: 07/08/19 08:26 Dose: 25 mg Documented by: Metoclopramide HCl (Reglan) 5 mg IV Q6H PRN PRN PRN Reason: NAUSEA/VOMITING Morphine Sulfate () 2 - 4 mg IV Q4H PRN PRN PRN Reason: Pain Score 1-10/10 Nitroglycerin (Nitrostat) 0.4 mg SUBLINGUAL Q5M PRN PRN Reason: CARDIAC/CHEST PAIN Sodium Chloride () 10 - 40 ml IV UD PRN PRN Reason: SALINE FLUSH Sodium Chloride () 500 ml IV BOLUS PRN PRN Reason: VASO-VAGAL PROTOCOL Discharge Activity: Return to Normal Activity Call your doctor if you observe: Fever of 101 or Higher, Shortness of breath, Dizziness, Fainting spells, Swelling in the ankles, Chest pain, Increased palpitations (irregular heartbeat) Home Medications: Medications to take at Discharge Aspirin E.C. [Ecotrin] 81 mg PO DAILY@0800 #60 tab 07/08/19 Atorvastatin Calcium [Lipitor] 80 mg PO QHS #60 tab 07/08/19 Carvedilol [Coreg (Beta Enrique)] 3.125 mg PO BID #120 tab 07/08/19 Clopidogrel Bisulfate [Plavix] 75 mg PO DAILY #60 tab 07/08/19 Losartan Potassium [Cozaar] 25 mg PO DAILY #60 tab 07/08/19 Following Prescrptions Were Given to Patient: Carvedilol [Coreg (Beta Enrique)] 3.125 mg PO BID #120 tab Transmission Status: Sent to [address] Losartan Potassium [Cozaar] 25 mg PO DAILY #60 tab Transmission Status: Sent to [address] Aspirin E.C. [Ecotrin] 81 mg PO DAILY@0800 #60 tab Transmission Status: Sent to [address] Atorvastatin Calcium [Lipitor] 80 mg PO QHS #60 tab Transmission Status: Sent to [address] Clopidogrel Bisulfate [Plavix] 75 mg PO DAILY #60 tab Transmission Status: Sent to [address] Other Amb Orders: Phase II, Outpatient Cardiac Rehab Location: None Selected Primary Care Physician: Ac Crump MD [Primary Care Provider] - Please follow up with your Primary Care Physician in: 1-2 weeks, can do telehealth Please Follow Up With: Titus Ferreira MD When: 2-4 weeks Disposition: Home Minutes spent on discharge:: 35 Patient Condition:: Stable Medical Necessity - Tobacco Use Smoking Status: Former smoker Meaningful Use Info Meaningful Use Diagnoses (Choose all that apply): AMI - AMI/Post PCI/Angioplasty Aspirin given w/in 24hrs of arrival?: Yes ASA at discharge?: Yes Statins at discharge?: Yes Anurag/ARB at discharge?: Yes Beta Enrique at discharge?: Yes Done w/ Acute VA measure.: Yes Inpatient E&M: 75290 Disch Hosp
--- NOTE | 2019-07-08 10:00 | EKG12_ITS ---
Test Reason : AM EKG Blood Pressure : / mmHG Vent. Rate : 058 BPM Atrial Rate : 058 BPM P-R Int : 182 ms QRS Dur : 118 ms QT Int : 480 ms P-R-T Axes : 014 -40 033 degrees QTc Int : 471 ms Sinus bradycardia with Premature supraventricular complexes Left axis deviation T wave abnormality, consider anterior ischemia Prolonged QT Abnormal ECG When compared with ECG of 07-JUL-2019 09:16, MANUAL COMPARISON REQUIRED, DATA IS UNCONFIRMED Confirmed by ERIKA COLIN, LISA ([id number]), purchase request editor USHA BANSAL ([id number]) on 07/14/2019 2:29:43 PM Referred By: BLANCO Confirmed By:DOMINIQUE JAMES MD
--- NOTE | 2019-07-08 10:04 | PN.CARD_ITS ---
Subjectve: Patient seen and examined this morning. Echo pending. Patient denies any chest pain, shortness of breath, right groin pain. EKG shows normal sinus rhythm with resolving anterior ST segment changes. Right groin is clean/dry/intact, no thrills, bruits or hematoma. 2+ pulses bilaterally. Telemetry showed normal sinus rhythm with rare PVC. Objective: Vital Signs Temp Pulse Resp BP Pulse Ox 98.1 F 64 20 H 121/77 H 92 07/08/19 08:00 07/08/19 09:00 07/08/19 09:00 07/08/19 09:00 07/08/19 09:00 Oxygen Flow Rate (L/min) 2 Oxygen Delivery Method Room Air Weight: 204 lb 2.369 oz Body Mass Index (BMI) 25.4 Intake and Output for Last 24 Hours 07/06/19 07/07/19 07/08/19 23:59 23:59 23:59 Intake Total 1000 / 1000 3253.54 / 3733.54 480 / 480 Output Total 3030 / 3330 500 / 500 Balance 1000 / 1000 223.54 / 403.54 - General: Awake, Alert, Oriented x 3 HEENT: PERRL, EOMI, Sclera Non Icteric Neck: Supple, Good ROM, No Lymph Node Enlargement Lungs: Clear to auscultation Cardiovascular: Regular Rhythm, Normal S1, Normal S2, No Murmurs, No Rubs, No Gallops Vascular: No Carotid Bruits, Normal Femoral Pulses, Normal Radial Pulses, Normal Dorsalis Pedal Pulse, Normal Posterior Tibial Pulses Abdomen: Bowel Sounds Present, Soft, Non Tender, No HSM, No Organomegaly Extremities: No Cyanosis, No Clubbing, No edema Neurological: No Focal Motor or Sensory Deficit 07/08/19 04:40: WBC 7.8, RBC 4.44 L, Hgb 14.3, Hct 42.6, MCV 95.9 H, MCH 32.2 H, MCHC 33.6, Plt Count 178, MPV 9.9 07/08/19 04:40: Sodium 138, Potassium 3.4 L, Chloride 106, Carbon Dioxide 26.0, Anion Gap 6, BUN 12, Creatinine 0.72, Est GFR (MDRD) Af Amer 138, Est GFR (MDRD) Non-Af 114, BUN/Creatinine Ratio 16.7, Glucose 120 H, Calcium 8.4 L, Total Bilirubin 0.60 Rhythm: EKG: ECHO: Stress Test: Cardiac Cath: PCI: CT Surgery: Holter monitor: EPS: PPM: CXR: Chest CT Scan: Medical Necessity - Tobacco Use Smoking Status: Former smoker Assessment/Plan 1. Coronary artery disease: The patient presented with unstable angina, non-ST elevation myocardial infarction, underwent cardiac catheterization which discovered moderate proximal LAD calcification, and a significant 75% ulcerated plaque in his mid LAD. The patient underwent successful angioplasty and drug- eluting stenting with an excellent result. Patient feels much better. He will continue baby aspirin, Plavix, Coreg, losartan. We are awaiting his echocardiogram to document his baseline LV function prior to discharge. We will repeat his echocardiogram at the conclusion of cardiac rehab. 2. Hyperlipidemia: Patient started on Lipitor yesterday. We will repeat his lipid profile in 6 weeks time. 3. Patient may be discharged home to follow Dr. Ferreira going forward. Thank you very much for the opportunity to participate in the cardiac care of your patient. Inpatient E&M: [id number] Subs Hosp L2
[2019-07-10 18:11] LABS: ACT Activated Clotting Time 131 sec (74-137)
== END 2019-07-08 10:10 | disposition home or self-care (01) | DRG 247 ==
LOC: ED 21:32 → PCU 23:26 → ICU 07-07 09:39
PROVIDERS: Internal Medicine; Internal Medicine Cardiovascular Disease; Admitting Provider Family Medicine; Emergency Provider Emergency Medicine; PCP Family Medicine; Visit Provider Family Medicine
DX: I21.4 Non-ST elevation (NSTEMI) myocardial infarction (principal); I10 Essential (primary) hypertension; I24.9 Acute ischemic heart disease, unspecified; I48.0 Paroxysmal atrial fibrillation; I25.10 Atherosclerotic heart disease of native coronary artery without angina pectoris; E78.5 Hyperlipidemia, unspecified; Z87.891 Personal history of nicotine dependence
CPT/HCPCS: 36415; 71045; 75625; 80048; 80053; 80061; 84484; 85025; 85027; 85347; 85610; 92928; 93005; 93458; 99285; 99406; J7030; J7040; Q9967; A4216; C1725; C1769; C1874; C1887; C1894; C9600

== ENCOUNTER → 2019-09-21 08:21 | Outpatient (CLI) | payer MEDICARE, SELFPAY ==
[2019-07-28 08:06] VITALS: BMI 24.3
[2019-09-21 10:14] LABS: Anion Gap 6 (5-15); BUN 12 mg/dL (7-18); BUN/Creat Ratio 13.4 RATIO (10-20); Calcium,Total 9.2 mg/dL (8.5-10.1); Chloride 106 mmol/L (98-107); Cholesterol 104 mg/dL (200); EST Glomerular Filtration Rate 89 mL/min (>60); Est Glom Filt Rate - Afr Amer 107 mL/min (>60); Glucose 119 mg/dL (74-106); High Density Lipoprotein 59 mg/dL; Potassium 3.7 mmol/L (3.5-5.1); Sodium Level 142 mmol/L (136-145); Triglycerides 51 mg/dL; Very Low Density Lipoprotein 10 mg/dL (5-40)
== END ==
PROVIDERS: PCP Family Medicine; Referring Provider Family Medicine; Visit Provider Family Medicine
DX: I25.10 Atherosclerotic heart disease of native coronary artery without angina pectoris (principal)
CPT/HCPCS: 36415; 80048; 80061

== ENCOUNTER → 2019-11-30 08:10 | Outpatient (CLI) | payer MEDICARE, SELFPAY ==
[2019-07-28 08:06] VITALS: BMI 24.3
[2019-11-30 09:44] LABS: Hematocrit 43.6 % (40-54); Hemoglobin 14.9 g/dL (13.0-16.5); Mean Corp Hgb Conc 34.2 g/dL (32-36); Mean Corpuscular Hgb 33.2 pg (27.0-32.0); Mean Corpuscular Volume 97.1 fL (80-94); Mean Platelet Vol. 10.4 fl (6.2-12.0); Platelet Count 197 K/mm3 (150-450); RBC Distribution Width CV 13.2 % (11.6-14.6); RBC Distribution Width SD 47.3 fl (35.1-43.9); Red Blood Count 4.49 M/mm3 (4.6-6.2); White Blood Count 10.4 K/mm3 (4.4-11.0)
[2019-11-30 10:23] LABS: Anion Gap 6 (5-15); BUN 14 mg/dL (7-18); BUN/Creat Ratio 13.9 RATIO (10-20); Calcium,Total 9.4 mg/dL (8.5-10.1); Chloride 102 mmol/L (98-107); Cholesterol 122 mg/dL (200); Creatinine, Serum 1.01 mg/dL (0.70-1.30); EST Glomerular Filtration Rate 77 mL/min (>60); Est Glom Filt Rate - Afr Amer 93 mL/min (>60); Glucose 121 mg/dL (74-106); High Density Lipoprotein 73 mg/dL; Magnesium 1.5 mg/dL (1.6-2.6); Potassium 4.3 mmol/L (3.5-5.1); Sodium Level 136 mmol/L (136-145); Thyroid Stim Hormone (TSH) 1.14 uIU/mL (0.358-3.74); Triglycerides 60 mg/dL; Very Low Density Lipoprotein 12 mg/dL (5-40)
== END ==
PROVIDERS: PCP Family Medicine; Referring Provider Family Medicine; Visit Provider Family Medicine
DX: I25.10 Atherosclerotic heart disease of native coronary artery without angina pectoris (principal); R00.2 Palpitations
CPT/HCPCS: 36415; 80048; 80061; 83735; 84443; 85027

== ENCOUNTER → 2020-04-06 07:48 | Outpatient (CLI) | payer MEDICARE, SELFPAY ==
[2020-03-16 08:38] VITALS: BMI 24.5
--- NOTE | 2020-04-06 07:52 | ECHOD_ITS ---
Reason For Study: ATRIAL FIB-FLUTTER Procedure This was a 2D Doppler, Color Flow transthoracic echocardiogram. Exam performed in department. Left Ventricle Normal LV size. Left ventricular systolic function is lower limits of normal. The estimated ejection fraction is 50 %. Unable to assess diastolic dysfunction due to arrhythmia. There is borderline global hypokinesis of the left ventricle. Right Ventricle Normal RV size. Normal systolic function. Atria Normal left atrium. Normal right atrium. Mitral Valve Normal mitral valve. Trivial eccentric mitral valve insufficiency. Tricuspid Valve Normal tricuspid valve. Mild tricuspid valve insufficiency. Pulmonary artery systolic pressure is 28 mmHg. Aortic Valve Normal aortic valve. Trisinus/trileaflet aortic valve. Pulmonic Valve Normal pulmonic valve. Great Vessels Mildly dilated aortic root. The pulmonary artery is normal size. Inferior vena cava collapse with respiration. Pericardium/Pleural No pericardial effusion. MMode/2D Measurements & Calculations LVIDd: 4.2 cm IVSd: 0.96 cm Ao root diam: 3.6 cm LVIDs: 3.4 cm LVPWd: 0.98 cm RVDd: 3.6 cm FS: 19.3 % LAV(MOD-bp): 58.4 ml LVAd ap4: 29.4 cm2 SV(MOD-sp4): 39.0 ml LAV(MOD-bp) Indexed: 27.4 ml/m2 EDV(MOD-sp4): 87.3 ml LAV(MOD-sp2): 65.2 ml EDV(sp4-el): 89.4 ml LAV(MOD-sp4): 46.7 ml LVAs ap4: 20.1 cm2 ESV(MOD-sp4): 48.3 ml ESV(sp4-el): 48.6 ml EF(MOD-sp4): 44.6 % EF(sp4-el): 45.6 % SV(sp4-el): 40.8 ml LA A4 area: 18.5 cm2 LA dimension(2D): 4.1 cm RA A4 area: 16.3 cm2 Doppler Measurements & Calculations MV E max barry: 62.7 cm/sec Ao V2 max: 93.9 cm/sec LV V1 max: 72.0 cm/sec Ao max P.6 mmHg LV V1 max P.1 mmHg PA V2 max: 71.5 cm/sec TR max barry: 242.8 cm/sec TR max P.6 mmHg Interpretation Summary Normal LV size. Left ventricular systolic function is lower limits of normal. The estimated ejection fraction is 50 %. Unable to assess diastolic dysfunction due to arrhythmia. Structurally normal valves. Ordering Physician: Nolan Walter Referring Physician: DEANNE MORELOS Performed By: Yesika Pinto RDCS
== END ==
PROVIDERS: PCP Family Medicine; Referring Provider Internal Medicine Cardiovascular Disease; Visit Provider Internal Medicine Cardiovascular Disease
DX: I48.0 Paroxysmal atrial fibrillation (principal); I48.92 Unspecified atrial flutter
CPT/HCPCS: 93306

== ENCOUNTER → 2020-06-23 10:54 | Outpatient (CLI) | payer MEDICARE, SELFPAY ==
[2020-03-16 08:38] VITALS: BMI 24.5
[2020-06-23 12:12] LABS: Hematocrit 43.4 % (40-54); Hemoglobin 14.1 g/dL (13.0-16.5); Mean Corp Hgb Conc 32.5 g/dL (32-36); Mean Corpuscular Volume 98.4 fL (80-94); Mean Platelet Vol. 10.3 fl (6.2-12.0); Platelet Count 202 K/mm3 (150-450); RBC Distribution Width CV 12.9 % (11.6-14.6); RBC Distribution Width SD 46.8 fl (35.1-43.9); Red Blood Count 4.41 M/mm3 (4.6-6.2); White Blood Count 8.1 K/mm3 (4.4-11.0)
[2020-06-23 12:53] LABS: ALB/GLOB Ratio 1.1 RATIO (0.9-2.4); AST(SGOT) 24 U/L (15-37); Alanine Aminotransfer ALT/SGPT 34 U/L (16-61); Albumin, Serum 3.8 g/dL (3.2-5.0); Alkaline Phosphatase 97 U/L (45-117); Anion Gap 7 (5-15); BUN 21 mg/dL (7-18); BUN/Creat Ratio 19.8 RATIO (10-20); Chloride 107 mmol/L (98-107); Cholesterol 132 mg/dL (200); Creatinine, Serum 1.06 mg/dL (0.70-1.30); EST Glomerular Filtration Rate 73 mL/min (>60); Est Glom Filt Rate - Afr Amer 88 mL/min (>60); Globulin 3.6 g/dL (2.2-4.2); Glucose 101 mg/dL (74-106); High Density Lipoprotein 75 mg/dL; Protein, Total 7.4 g/dL (6.4-8.2); Sodium Level 139 mmol/L (136-145); Thyroid Stim Hormone (TSH) 2.58 uIU/mL (0.358-3.74); Triglycerides 55 mg/dL; Very Low Density Lipoprotein 11 mg/dL (5-40)
== END ==
PROVIDERS: PCP Family Medicine; Referring Provider Family Medicine; Visit Provider Family Medicine
DX: I25.10 Atherosclerotic heart disease of native coronary artery without angina pectoris (principal); I48.91 Unspecified atrial fibrillation; Z12.5 Encounter for screening for malignant neoplasm of prostate
CPT/HCPCS: 36415; 80053; 80061; 84153; 84443; 85027; G0103

== ENCOUNTER → 2020-10-03 06:51 | Outpatient (CLI) | payer MEDICARE, SELFPAY ==
[2020-08-05 09:24] VITALS: BMI 25.8
--- NOTE | 2020-10-03 06:56 | CDU_ITS ---
Reason For Study: BRUIT Rt. Velocities/BP Lt. Velocities/BP Prox CCA 126/19 cm/sec. Prox CCA 82/16 cm/sec. Mid CCA 79/16 cm/sec. Mid CCA 59/16 cm/sec. Dist CCA 60/15 cm/sec. Dist CCA 61/19 cm/sec. Prox ICA 118/15 cm/sec. Prox ICA 65/15 cm/sec. Mid ICA 73/15 cm/sec. Mid ICA 70/17 cm/sec. Dist ICA 56/16 cm/sec. Dist ICA 62/18 cm/sec. Rt. ICA/CCA = 1.5. Lt. ICA/CCA = 1.1. Prox ECA 127/16 cm/sec. Prox ECA 127/16 cm/sec. Rt. Vert. 60/8 cm/sec. Lt. Vert. 60/8 cm/sec. Right Extracranial There is homogeneous, smooth atherosclerotic plaque noted in the right common carotid artery. There is intimal thickening but no significant atherosclerotic plaque noted in the right internal carotid artery. There is heterogeneous, irregular atherosclerotic plaque noted in the right external carotid artery. Antegrade flow is noted in the right vertebral artery. There is heterogeneous, irregular atherosclerotic plaque noted in the right bulb. Acoustic shadowing. Left Extracranial There is homogeneous, smooth atherosclerotic plaque noted in the left common carotid artery. There is intimal thickening but no significant atherosclerotic plaque noted in the left internal carotid artery. There is heterogeneous, irregular atherosclerotic plaque noted in the left external carotid artery. Antegrade flow is noted in the left vertebral artery. There is heterogeneous, irregular atherosclerotic plaque noted in the left bulb. Procedure Carotid Duplex [id number]. Exam performed in department. VL/Carotid Duplex Ultrasound Interpretation Summary Irregular calcific plaque with shadowing at the right carotid bulb with extensi on to the proximal right internal carotid artery Less than 50% stenosis right internal carotid artery Less than 50% stenosis right external carotid artery Intimal thickening at the proximal left internal carotid artery with less than 50% stenosis Less than 50% stenosis left external carotid artery Patent and antegrade vertebral arteries bilaterally Ordering Physician: Gwen Benito Referring Physician: Gwen Benito Performed By: Elke Dominguez, GEORGINA, RVT
--- NOTE | 2020-10-04 06:28 | PFT ---
INTRODUCTION: The patient is a 75-year-old male that presents for pulmonary function studies secondary to a diagnosis of respiratory symptoms. Respiratory therapy reports good patient effort. Bronchodilators were used during testing. INTERPRETATION: Forced expiration spirometry demonstrates the presence of a moderately severe large airways obstructive ventilatory defect. There was a significant response to aerosolized bronchodilators. Spirograms are of good quality but do not plateau indicating slow emptying of the lungs. Body plethysmography was performed and revealed an elevated RV to 138% of predicted, indicative of underlying air trapping. Diffusing capacity by single breath CO was within normal limits. IMPRESSION: Partially reversible moderately severe large airways obstructive ventilatory defect with associated air trapping and preserved diffusing capacity.
== END ==
PROVIDERS: PCP Family Medicine; Referring Provider Physician Assistant Medical; Visit Provider Physician Assistant Medical
DX: R09.89 Other specified symptoms and signs involving the circulatory and respiratory systems (principal); I48.0 Paroxysmal atrial fibrillation; I25.10 Atherosclerotic heart disease of native coronary artery without angina pectoris; E78.5 Hyperlipidemia, unspecified; I10 Essential (primary) hypertension
CPT/HCPCS: 93880; 94060; 94726; 94729

== ENCOUNTER → 2021-02-06 08:22 | Outpatient (CLI) | payer MEDICARE, SELFPAY ==
[2021-02-06 10:11] LABS: Hemoglobin 14.4 g/dL (13.0-16.5); Mean Corp Hgb Conc 34.3 g/dL (32-36); Mean Corpuscular Volume 96.1 fL (80-94); Mean Platelet Vol. 9.9 fl (6.2-12.0); Platelet Count 187 K/mm3 (150-450); RBC Distribution Width CV 13.2 % (11.6-14.6); RBC Distribution Width SD 47.6 fl (35.1-43.9); Red Blood Count 4.37 M/mm3 (4.6-6.2); White Blood Count 7.1 K/mm3 (4.4-11.0)
[2021-02-06 10:44] LABS: ALB/GLOB Ratio 0.9 RATIO (0.9-2.4); AST(SGOT) 40 U/L (15-37); Alanine Aminotransfer ALT/SGPT 56 U/L (16-61); Albumin, Serum 3.7 g/dL (3.2-5.0); Alkaline Phosphatase 99 U/L (45-117); Anion Gap 6 (5-15); BUN 21 mg/dL (7-18); BUN/Creat Ratio 18.9 RATIO (10-20); Calcium,Total 8.9 mg/dL (8.5-10.1); Chloride 108 mmol/L (98-107); Cholesterol 118 mg/dL (200); Creatinine, Serum 1.11 mg/dL (0.70-1.30); EST Glomerular Filtration Rate 69 mL/min (>60); Est Glom Filt Rate - Afr Amer 83 mL/min (>60); Glucose 116 mg/dL (74-106); High Density Lipoprotein 68 mg/dL; Protein, Total 7.7 g/dL (6.4-8.2); Sodium Level 138 mmol/L (136-145); Triglycerides 51 mg/dL; Very Low Density Lipoprotein 10 mg/dL (5-40)
[2021-02-06 10:47] LABS: BNP,B-Type NATRIURETIC PEPTIDE 170.9 pg/mL (0-100)
== END ==
PROVIDERS: PCP Family Medicine; Visit Provider Family Medicine
DX: I25.10 Atherosclerotic heart disease of native coronary artery without angina pectoris (principal)
CPT/HCPCS: 80053; 80061; 83880; 85027

== ENCOUNTER 2021-07-05 09:47 | Outpatient (CLI) | payer MEDICARE, SELFPAY ==
[2021-07-05 12:15] LABS: Hematocrit 43.3 % (40-54); Hemoglobin 14.3 g/dL (13.0-16.5); Mean Corpuscular Hgb 32.3 pg (27.0-32.0); Mean Corpuscular Volume 97.7 fL (80-94); Mean Platelet Vol. 10.5 fl (6.2-12.0); Platelet Count 196 K/mm3 (150-450); RBC Distribution Width CV 13.3 % (11.6-14.6); RBC Distribution Width SD 47.9 fl (35.1-43.9); Red Blood Count 4.43 M/mm3 (4.6-6.2); White Blood Count 6.1 K/mm3 (4.4-11.0)
[2021-07-05 12:40] LABS: Anion Gap 7 (5-15); BUN 23 mg/dL (7-18); Calcium,Total 9.2 mg/dL (8.5-10.1); Chloride 110 mmol/L (98-107); Cholesterol 111 mg/dL (200); EST Glomerular Filtration Rate 78 mL/min (>60); Est Glom Filt Rate - Afr Amer 94 mL/min (>60); Glucose 104 mg/dL (74-106); High Density Lipoprotein 66 mg/dL; PSA,Total - Annual Screen 1.19 ng/mL (0.00-4.00); Potassium 3.9 mmol/L (3.5-5.1); Sodium Level 140 mmol/L (136-145); Triglycerides 51 mg/dL; Very Low Density Lipoprotein 10 mg/dL (5-40)
[2021-07-05 12:44] LABS: BNP,B-Type NATRIURETIC PEPTIDE 123.7 pg/mL (0-100)
== END 2021-07-05 23:59 | disposition home or self-care (01) ==
LOC: MFPLAB 09:48
PROVIDERS: PCP Family Medicine; Referring Provider Family Medicine; Visit Provider Family Medicine
DX: I25.10 Atherosclerotic heart disease of native coronary artery without angina pectoris (principal); R73.01 Impaired fasting glucose; Z12.5 Encounter for screening for malignant neoplasm of prostate
CPT/HCPCS: 36415; 80048; 80061; 83880; 84153; 85027; G0103

== ENCOUNTER → 2021-11-09 | Outpatient (CLI) | payer MEDICARE, SELFPAY ==
--- NOTE | 2021-11-09 17:39 | STRESSREP ---
Stress Test Report Exercise myocardial perfusion stress test. 76-year-old man with a history of previous coronary artery disease. Stress protocol: Resting EKG demonstrates normal sinus rhythm with a rate of 58 bpm normal intervals are noted resting blood pressure is 150/82 mmHg. The patient exercised according to the regular Lan protocol for total duration of 3 minutes. The maximum heart rate attained was approximately 105 bpm. The maximum workload was 4.7 metabolic equivalents. The patient was noted to have a right bundle branch block. At rest there were no ST or T wave changes noted to suggest ischemia and at peak exercise upsloping ST changes were noted with did not meet the criteria for ischemia. The patient was noted to have significant leg fatigue. The peak blood pressure was noted to be 164/70 mmHg. Myocardial perfusion protocol. 11.9 mCi of technetium 99m sestamibi was injected. The patient exercised according to regular Lan protocol for 3 minutes and at peak exercise 34.5 mCi of technetium 99m sestamibi was injected stress images were obtained stress and rest images were reconstructed and compared in the short axis vertical and horizontal long axis. Gated images were also obtained. Perfusion SPECT analysis: Review of the stress images demonstrate normal uptake of tracer noted in all areas of the myocardium. The resting images similar demonstrate normal uptake of tracer noted in all areas of the myocardium. No areas of reversibility are noted to suggest ischemia and no previous infarct was noted. Gated SPECT analysis: The gated ejection fraction was 66%. Conclusion: Normal exercise myocardial perfusion stress test at a low workload. Low workload may affect sensitivity for detection of ischemia. Preserved ejection fraction noted.
== END | disposition home or self-care (01) ==
LOC: CVS 07:05
PROVIDERS: PCP Family Medicine; Referring Provider Internal Medicine Cardiovascular Disease; Visit Provider Internal Medicine Cardiovascular Disease
DX: I25.10 Atherosclerotic heart disease of native coronary artery without angina pectoris (principal); Z95.5 Presence of coronary angioplasty implant and graft
CPT/HCPCS: 78452; 93017; A9500; A4216

== ENCOUNTER → 2022-05-14 | Outpatient (CLI) | payer MEDICARE, SELFPAY ==
[2022-05-14 12:15] LABS: Hematocrit 44.6 % (40-54); Mean Corp Hgb Conc 33.6 g/dL (32-36); Mean Corpuscular Hgb 32.9 pg (27.0-32.0); Mean Corpuscular Volume 97.8 fL (80-94); Mean Platelet Vol. 10.2 fl (6.2-12.0); Platelet Count 200 K/mm3 (150-450); RBC Distribution Width CV 14.2 % (11.6-14.6); RBC Distribution Width SD 51.8 fl (35.1-43.9); Red Blood Count 4.56 M/mm3 (4.6-6.2); White Blood Count 6.9 K/mm3 (4.4-11.0)
[2022-05-14 12:38] LABS: BNP,B-Type NATRIURETIC PEPTIDE 193.1 pg/mL (0-100)
[2022-05-14 13:10] LABS: AST(SGOT) 54 U/L (15-37); Alanine Aminotransfer ALT/SGPT 53 U/L (16-61); Albumin, Serum 3.9 g/dL (3.2-5.0); Alkaline Phosphatase 80 U/L (45-117); Anion Gap 7 (5-15); BUN 19 mg/dL (7-18); BUN/Creat Ratio 16.2 RATIO (10-20); Calcium,Total 9.6 mg/dL (8.5-10.1); Chloride 104 mmol/L (98-107); Cholesterol 126 mg/dL (200); Creatinine, Serum 1.17 mg/dL (0.70-1.30); EST Glomerular Filtration Rate 65 mL/min (>60); Est Glom Filt Rate - Afr Amer 78 mL/min (>60); Globulin 3.9 g/dL (2.2-4.2); Glucose 117 mg/dL (74-106); High Density Lipoprotein 90 mg/dL; Potassium 4.1 mmol/L (3.5-5.1); Protein, Total 7.8 g/dL (6.4-8.2); Sodium Level 138 mmol/L (136-145); Triglycerides 50 mg/dL; Very Low Density Lipoprotein 10 mg/dL (5-40)
== END | disposition home or self-care (01) ==
LOC: MFPLAB 11:25
PROVIDERS: PCP Family Medicine; Referring Provider Family Medicine; Visit Provider Family Medicine
DX: I48.91 Unspecified atrial fibrillation (principal); E78.5 Hyperlipidemia, unspecified
CPT/HCPCS: 36415; 80053; 80061; 83880; 85027

== ENCOUNTER 2022-07-16 09:03 | Outpatient (CLI) | payer MEDICARE, SELFPAY ==
[2022-07-16 12:20] LABS: Absolute Neutrophil Count 3.6 X10^3/uL (2.0-7.7); Basophil% 1.6 % (0-1); Eosinophil# 0.05 X10^3/uL; Eosinophils% 0.8 % (0-5); Hematocrit 42.4 % (40-54); Hemoglobin 13.7 g/dL (13.0-16.5); Lymphocyte % 30.1 % (19-41); Mean Corp Hgb Conc 32.3 g/dL (32-36); Mean Corpuscular Hgb 33.2 pg (27.0-32.0); Mean Corpuscular Volume 102.7 fL (80-94); Monocyte# 0.64 X10^3/uL; Monocyte% 10.1 % (0-10); NRBC Flagged by Analyzer 0 % (0-5); Neutrophil # 3.57 X10^3/uL (2.7-7.7); Neutrophil % 56.6 % (47-70); Platelet Count 230 K/mm3 (150-450); RBC Distribution Width CV 14.1 % (11.6-14.6); RBC Distribution Width SD 53.3 fl (35.1-43.9); Red Blood Count 4.13 M/mm3 (4.6-6.2); White Blood Count 6.3 K/mm3 (4.4-11.0)
[2022-07-16 12:42] LABS: BNP,B-Type NATRIURETIC PEPTIDE 120.9 pg/mL (0-100)
[2022-07-16 13:30] LABS: Anion Gap 3 (5-15); BUN 25 mg/dL (7-18); BUN/Creat Ratio 20.8 RATIO (10-20); Calcium,Total 9.5 mg/dL (8.5-10.1); Chloride 105 mmol/L (98-107); EST Glomerular Filtration Rate 63 mL/min (>60); Est Glom Filt Rate - Afr Amer 76 mL/min (>60); GGTP 44 U/L (15-85); Glucose 108 mg/dL (74-106); Potassium 3.9 mmol/L (3.5-5.1); Sodium Level 138 mmol/L (136-145)
[2022-07-16 13:36] LABS: Hepatitis B Surface Antibody Non-Reactive
[2022-07-17 09:28] LABS: Free T3 0.8 pg/mL (2.18-3.98)
[2022-07-18 05:07] LABS: HEPATITIS B SURFACE AG Negative (Negative); Hep C Antibodies Non Reactive (Non Reactive); Hepatitis A IgM Antibody Negative (Negative); Hepatitis B Core AB IgM Negative (Negative)
[2022-07-18 11:17] LABS: Hepatitis A AB, Total Negative (Negative)
== END 2022-07-16 23:59 | disposition home or self-care (01) ==
LOC: MFPLAB 09:04
PROVIDERS: PCP Family Medicine; Visit Provider Family Medicine
DX: Z00.00 Encounter for general adult medical examination without abnormal findings (principal); I48.91 Unspecified atrial fibrillation; Z12.5 Encounter for screening for malignant neoplasm of prostate; R79.89 Other specified abnormal findings of blood chemistry; E78.5 Hyperlipidemia, unspecified; R60.0 Localized edema; I10 Essential (primary) hypertension; Z79.899 Other long term (current) drug therapy
CPT/HCPCS: 36415; 80048; 80074; 82977; 83880; 84153; 84439; 84443; 84481; 85025; 86706; 86708; G0103

== ENCOUNTER → 2022-07-27 | Outpatient (CLI) | payer MEDICARE, SELFPAY ==
--- NOTE | 2022-07-27 07:31 | CT_ITS ---
STUDY: LOW DOSE CT LUNG CANCER SCREENING REASON FOR EXAM: Male, 76 years old. tobacco use. Patient smoked 1 pack per day for 51 years. RADIATION DOSAGE (If Supplied By Facility): CTDIvol = ( 4.02 ) mGy, DLP = ( 151.50 ) mGycm TECHNIQUE: No contrast was administered. Low dose technique was utilized (average mAS-38 and kVp 120). 1.25 mm axial source images with a slice interval of 1.25-mm were reconstructed in lung windows. 2.5 mm axial source images with a slice interval of 2.5-mm were reconstructed in lung windows. 5.0 mm axial source images with a slice interval of 5.0-mm were reconstructed in soft tissue windows. COMPARISON: Comparison is made with prior chest radiograph dated July 06, 2019. NODULES: No suspicious nodules are seen. Emphysema: Hyperinflation. Mild degree of emphysematous changes. Nonspecific groundglass appearance in the peripheral lateral proximal aspect of the right upper lobe as well as in the superior segment of the right lower lobe suggestive of a scarring. Mild degree of scarring at the lung bases slightly worse on the left lung base with areas of the bronchiectasis. Endobronchial lesion: Unremarkable Aorta: Atherosclerotic plaque formation of the aortic arch. CORONARY ARTERIES: Coronary artery calcification is seen. Heart: Unremarkable Pulmonary artery: Unremarkable Mediastinal nodes: Small benign-appearing mediastinal lymph nodes. Other chest and abdominal findings: CT/Low Dose CT Lung Screening IMPRESSION: Lung-RADS category 2 - Continue annual screening with LDCT in 12 months. IMPORTANT NOTES FOR USE: ACR Lung-RADS Version 1.1 Assessment Categories Release Date: 2018 Category: Coded 0-4 bases on nodule(s) with highest degree of suspicion. Negative screen is defined as categories 1 and 2; a positive screen is defined as categories 3 and 4. Category 3 and 4A nodules that are unchanged on interval CT should be coded as category 2, and individuals returned to screening in 12 months. Category 4X: Category 3 or 4 nodules with additional imaging findings that increase the suspicion of lung cancer, such as spiculation, GGN that doubles in size in 1 year, enlarged lymph notes, etc. Category Modifiers: S (significant finding unrelated to lung cancer) Electronically Signed: Shaquille Hui MD at 12:21 EDT ,
--- NOTE | 2022-07-27 08:11 | US_ITS ---
STUDY: ABDOMINAL ULTRASOUND - RIGHT UPPER QUADRANT REASON FOR VISIT: Male, 76 years old NOY JASE LFTS TECHNIQUE: Ultrasound evaluation of the right upper quadrant was performed with real-time and static ricardo-scale imaging. TECHNICAL QUALITY: Adequate. COMPARISON: None. FINDINGS: Liver: The liver measures 14 cm. There is increased echogenicity consistent with fatty infiltration. The bile ducts are within normal limits. There is hepatic color flow. The direction of portal flow is hepatopetal. There is no demonstrated mass lesion. Gallbladder: Normal distended gallbladder. The gallbladder wall measures 2.0 mm. There is a negative sonographic Eric''s sign. There is no pericholecystic fluid. There are no gallstones. Common Bile Duct (C.B.D.): The common bile duct measures 4 mm. Pancreas: There is nonvisualization of the pancreas due to overlying bowel gas. Right Kidney: Normal size of the right kidney. The right kidney measures 12.5 cm x 5.2 cm x 6.1 cm. Normal renal cortex. The right cortex measures 1.5 cm. There is a 1.8 cm x 1.2 cm x 1.5 cm cyst in the medial aspect of the kidney. There is no right hydronephrosis. IMPRESSION: Fatty infiltration of the liver. Small right renal cyst. Electronically Signed: Shaquille Hui MD at 9:01 EDT , STUDY: ABDOMINAL ULTRASOUND - ELASTOGRAPHY REASON FOR VISIT: Male, 76 years old. Elevated liver function tests. TECHNIQUE: Liver stiffness measurements were obtained on a VISup RS 85 ultrasound machine using a CA 1-7 probe following the SRU guidelines. 3 measurements were obtained using a 2-D-SWE method. TheIQR/M was 22% suggesting a quality data set. TECHNICAL QUALITY: Adequate. COMPARISON: Comparison is made with prior study done earlier in the day. FINDINGS: Liver: Fatty infiltration of the liver. Median liver stiffness measured 7.8 kPa. Abdomen: There is no demonstrated mass lesion. US/ABD Limited w/ Elastography IMPRESSION: Liver stiffness measures 7.8 kPa compatible with F2-F3 (Mild to moderate liver fibrosis) Metavir score. Electronically Signed: Shaquille Hui MD at 9:04 EDT ,
== END | disposition home or self-care (01) ==
PROVIDERS: PCP Family Medicine; Referring Provider Family Medicine; Visit Provider Family Medicine
DX: R79.89 Other specified abnormal findings of blood chemistry (principal); F17.210 Nicotine dependence, cigarettes, uncomplicated
CPT/HCPCS: 71271; 76705; 76981

== ENCOUNTER → 2022-08-14 | Outpatient (CLI) | payer MEDICARE, SELFPAY ==
[2022-08-14 10:36] LABS: Anion Gap 3 (5-15); BUN 25 mg/dL (7-18); BUN/Creat Ratio 22.1 RATIO (10-20); Calcium,Total 9.1 mg/dL (8.5-10.1); Chloride 110 mmol/L (98-107); Creatinine, Serum 1.13 mg/dL (0.70-1.30); EST Glomerular Filtration Rate 67 mL/min (>60); Est Glom Filt Rate - Afr Amer 81 mL/min (>60); Free T3 1.4 pg/mL (2.18-3.98); Glucose 110 mg/dL (74-106); Potassium 4.2 mmol/L (3.5-5.1); Sodium Level 142 mmol/L (136-145); T4 Free Direct 0.77 ng/dL (0.76-1.46)
== END | disposition home or self-care (01) ==
LOC: MTLAB 08:25
PROVIDERS: PCP Family Medicine; Referring Provider Family Medicine; Visit Provider Family Medicine
DX: R60.0 Localized edema (principal); E03.9 Hypothyroidism, unspecified
CPT/HCPCS: 36415; 80048; 84439; 84443; 84481

== ENCOUNTER → 2022-08-29 | Outpatient (CLI) | payer MEDICARE, SELFPAY ==
--- NOTE | 2022-08-29 09:02 | ECHOD_ITS ---
Reason For Study: Edema Procedure This was a 2D Doppler, Color Flow transthoracic echocardiogram. Exam performed in department. Left Ventricle Normal LV size. Left ventricular systolic function is normal. The estimated ejection fraction is 60 %. Stage 1 diastolic dysfunction. No regional wall motion abnormalities noted. Right Ventricle Normal RV size. Normal systolic function. Atria Normal left atrium. Normal right atrium. Mitral Valve Normal mitral valve. Tricuspid Valve Normal tricuspid valve. Mild (1+) tricuspid valve insufficiency. Pulmonary artery systolic pressure is 35 mmHg. Aortic Valve Normal aortic valve. Pulmonic Valve Normal pulmonic valve. Great Vessels Mild to moderately dilated aortic root. The pulmonary artery is normal size. Normal inferior vena cava. Pericardium/Pleural No pericardial effusion. MMode/2D Measurements & Calculations LVIDd: 4.9 cm IVSd: 1.2 cm LVOT diam: 2.0 cm LVIDs: 2.9 cm LVPWd: 0.99 cm LVOT area: 3.2 cm2 RVDd: 4.1 cm FS: 41.4 % Ao root diam: 4.0 cm LAV(MOD-bp): 45.1 ml LVAd ap4: 34.8 cm2 LAV(MOD-bp) Indexed: 20.1 ml/m2 LVLd ap4: 8.7 cm LAV(MOD-sp2): 51.7 ml EDV(MOD-sp4): 115.2 ml LAV(MOD-sp4): 38.7 ml EDV(sp4-el): 118.4 ml LVAs ap4: 19.0 cm2 LVLs ap4: 7.1 cm ESV(MOD-sp4): 43.9 ml ESV(sp4-el): 43.4 ml EF(MOD-sp4): 61.9 % EF(sp4-el): 63.4 % LVAd ap2: 32.2 cm2 SV(MOD-sp4): 71.4 ml SV(MOD-sp2): 66.8 ml LVLd ap2: 8.6 cm EDV(MOD-sp2): 102.1 ml EDV(sp2-el): 102.5 ml LVAs ap2: 17.3 cm2 LVLs ap2: 7.3 cm ESV(MOD-sp2): 35.2 ml ESV(sp2-el): 34.8 ml EF(MOD-sp2): 65.5 % SV(sp4-el): 75.0 ml LA dimension(2D): 4.2 cm LA A4 area: 17.1 cm2 RA A4 area: 18.3 cm2 Time Measurements MV dec time: 0.25 sec Doppler Measurements & Calculations MV E max lyndon: 58.1 cm/sec Lat Peak E' Lyndon: 15.4 cm/sec Med Peak E' Lyndon: 10.5 cm/sec MV A max lyndon: 65.7 cm/sec E/E' lat: 3.8 E/E' med: 5.5 MV E/A: 0.88 Ao V2 max: 117.1 cm/sec LV V1 max: 98.7 cm/sec MV dec slope: 232.9 cm/sec2 Ao max P.5 mmHg LV V1 max P.9 mmHg Ao V2 mean: 77.9 cm/sec LV V1 mean P.9 mmHg Ao mean P.8 mmHg LV V1 mean: 63.8 cm/sec Ao V2 VTI: 30.6 cm LV V1 VTI: 24.3 cm AV (velocity ratio): 0.79 DIMITRY(I,D): 2.6 cm2 DIMITRY(V,D): 2.7 cm2 SV(LVOT): 78.4 ml PA V2 max: 104.6 cm/sec TR max lyndon: 283.7 cm/sec PA max PG (full): 2.3 mmHg TR max P.2 mmHg ECHO/Echo Complete Interpretation Summary Normal LV size. Left ventricular systolic function is normal. The estimated ejection fraction is 60 %. Mild to moderately dilated aortic root. Stage 1 diastolic dysfunction. Pulmonary artery systolic pressure is 35 mmHg. Ordering Physician: Ac Crump Referring Physician: Ac Crump Performed By: Glenny Azevedo RDCS
== END | disposition home or self-care (01) ==
LOC: CVS 09:01
PROVIDERS: PCP Family Medicine; Referring Provider Family Medicine; Visit Provider Family Medicine
DX: R60.0 Localized edema (principal)
CPT/HCPCS: 93306

== ENCOUNTER → 2022-09-13 | Outpatient (CLI) | payer MEDICARE, SELFPAY ==
[2022-09-13 15:34] LABS: Absolute Lymphocyte Count 1.81 X10^3/uL (0.83-4.51); Absolute Neutrophil Count 3.7 X10^3/uL (2.0-7.7); Basophil# 0.07 X10^3/uL; Basophil% 1.1 % (0-1); Eosinophil# 0.07 X10^3/uL; Eosinophils% 1.1 % (0-5); Hemoglobin 14.1 g/dL (13.0-16.5); Lymphocyte # 1.81 X10^3/ul (0.83-4.51); Lymphocyte % 28.5 % (19-41); Mean Corpuscular Hgb 32.7 pg (27.0-32.0); Mean Corpuscular Volume 102.1 fL (80-94); Mean Platelet Vol. 10.3 fl (6.2-12.0); Monocyte# 0.64 X10^3/uL; Monocyte% 10.1 % (0-10); NRBC Flagged by Analyzer 0 % (0-5); Neutrophil # 3.74 X10^3/uL (2.7-7.7); Platelet Count 225 K/mm3 (150-450); RBC Distribution Width CV 14.1 % (11.6-14.6); RBC Distribution Width SD 53.7 fl (35.1-43.9); Red Blood Count 4.31 M/mm3 (4.6-6.2); White Blood Count 6.3 K/mm3 (4.4-11.0)
[2022-09-13 16:13] LABS: ALB/GLOB Ratio 0.9 RATIO (0.9-2.4); AST(SGOT) 45 U/L (15-37); Alanine Aminotransfer ALT/SGPT 47 U/L (16-61); Albumin, Serum 3.7 g/dL (3.2-5.0); Alkaline Phosphatase 96 U/L (45-117); Anion Gap 9 (5-15); BUN 21 mg/dL (7-18); BUN/Creat Ratio 19.1 RATIO (10-20); Calcium,Total 9.5 mg/dL (8.5-10.1); Chloride 106 mmol/L (98-107); EST Glomerular Filtration Rate 69 mL/min (>60); Est Glom Filt Rate - Afr Amer 84 mL/min (>60); Globulin 4.3 g/dL (2.2-4.2); Glucose 89 mg/dL (74-106); Sodium Level 139 mmol/L (136-145)
[2022-09-13 18:43] LABS: BNP,B-Type NATRIURETIC PEPTIDE 130.3 pg/mL (0-100)
== END | disposition home or self-care (01) ==
LOC: MFPLAB 12:03
PROVIDERS: PCP Family Medicine; Visit Provider Family Medicine
DX: F10.10 Alcohol abuse, uncomplicated (principal); I48.91 Unspecified atrial fibrillation; R79.89 Other specified abnormal findings of blood chemistry; E03.9 Hypothyroidism, unspecified
CPT/HCPCS: 36415; 80053; 83880; 84443; 85025

== ENCOUNTER → 2022-10-25 | Outpatient (CLI) | payer MEDICARE, SELFPAY ==
[2022-10-25 10:52] LABS: Anion Gap 6 (5-15); BUN 20 mg/dL (7-18); Calcium,Total 9.3 mg/dL (8.5-10.1); Chloride 104 mmol/L (98-107); Creatinine, Serum 1.11 mg/dL (0.70-1.30); EST Glomerular Filtration Rate 69 mL/min (>60); Est Glom Filt Rate - Afr Amer 83 mL/min (>60); Glucose 89 mg/dL (74-106); Potassium 4.2 mmol/L (3.5-5.1); Sodium Level 139 mmol/L (136-145); Thyroid Stim Hormone (TSH) 4.41 uIU/mL (0.358-3.74)
== END | disposition home or self-care (01) ==
LOC: MFPLAB 08:37
PROVIDERS: PCP Family Medicine; Visit Provider Family Medicine
DX: E03.9 Hypothyroidism, unspecified (principal); I10 Essential (primary) hypertension
CPT/HCPCS: 36415; 80048; 84443

== ENCOUNTER → 2022-12-05 | Outpatient (CLI) | payer MEDICARE, SELFPAY ==
--- NOTE | 2022-12-05 09:33 | RAD_ITS ---
STUDY: X-RAY - RIGHT SHOULDER REASON FOR EXAM: Male, 77 years old patient with right-sided shoulder pain. TECHNIQUE: 4 view(s) of the shoulder. COMPARISON: Prior comparable comparison studies are not available for review at this time. FINDINGS: There is moderate degenerative arthrosis of the glenohumeral articulation. There is degenerative arthrosis of the acromioclavicular joint without inferior osseous spur formation. Normal acromion. Normal humeral head and visualized proximal humerus. There is periarticular soft tissue calcification consistent with a calcific tendinitis. Normal visualized right lung. RAD/Shoulder min 2 Views IMPRESSION: 1. Moderately severe degenerative arthropathy. 2. Calcific tendinopathy. Electronically Signed: Joanna Yadav MD at 16:39 EDT ,
== END | disposition home or self-care (01) ==
PROVIDERS: PCP Family Medicine; Referring Provider Family Medicine; Visit Provider Family Medicine
DX: M25.511 Pain in right shoulder (principal)
CPT/HCPCS: 73030

== ENCOUNTER → 2022-12-24 | Outpatient (CLI) | payer MEDICARE, SELFPAY ==
[2022-12-24 12:40] LABS: BNP,B-Type NATRIURETIC PEPTIDE 90.4 pg/mL (0-100)
[2022-12-24 13:02] LABS: ALB/GLOB Ratio 0.9 RATIO (0.9-2.4); AST(SGOT) 49 U/L (15-37); Alanine Aminotransfer ALT/SGPT 56 U/L (16-61); Albumin, Serum 3.4 g/dL (3.2-5.0); Alkaline Phosphatase 88 U/L (45-117); Anion Gap 7 (5-15); BUN 23 mg/dL (7-18); BUN/Creat Ratio 22.5 RATIO (10-20); Chloride 106 mmol/L (98-107); Creatinine, Serum 1.02 mg/dL (0.70-1.30); EST Glomerular Filtration Rate 76 mL/min (>60); Est Glom Filt Rate - Afr Amer 92 mL/min (>60); Globulin 3.8 g/dL (2.2-4.2); Glucose 100 mg/dL (74-106); Potassium 4.3 mmol/L (3.5-5.1); Protein, Total 7.2 g/dL (6.4-8.2); Sodium Level 141 mmol/L (136-145)
== END | disposition home or self-care (01) ==
LOC: MFPLAB 09:21
PROVIDERS: PCP Family Medicine; Visit Provider Family Medicine
DX: E03.9 Hypothyroidism, unspecified (principal); R60.0 Localized edema
CPT/HCPCS: 36415; 80053; 83880; 84443

== ENCOUNTER → 2023-01-23 | Outpatient (CLI) | payer MEDICARE, SELFPAY ==
[2023-01-23 11:10] LABS: Anion Gap 6 (5-15); BUN 17 mg/dL (7-18); BUN/Creat Ratio 16.8 RATIO (10-20); Calcium,Total 9.1 mg/dL (8.5-10.1); Chloride 108 mmol/L (98-107); Creatinine, Serum 1.01 mg/dL (0.70-1.30); EST Glomerular Filtration Rate 77 mL/min (>60); Est Glom Filt Rate - Afr Amer 93 mL/min (>60); Glucose 114 mg/dL (74-106); Potassium 4.2 mmol/L (3.5-5.1); Sodium Level 142 mmol/L (136-145)
== END | disposition home or self-care (01) ==
LOC: MFPLAB 09:34
PROVIDERS: PCP Family Medicine; Visit Provider Family Medicine
DX: R79.89 Other specified abnormal findings of blood chemistry (principal)
CPT/HCPCS: 36415; 80048

== ENCOUNTER 2023-03-05 10:00 | Outpatient (RCR) | payer MEDICARE, SELFPAY ==
--- NOTE | 2022-12-12 14:16 | HP.PTEVAL_ITS ---
Patient's Visit Information Visit Information Visit Information: FADY TERRY is a 77 year old M referred to Physical Therapy by Dr. Ac Crump MD with a diagnosis of RIGHT SHOULDER OA. Date of Evaluation: 12/12/22 Physical Therapist: Atif Ash PT, Cert MDT, OCS Visit Plan Frequency: 2x /Week Duration: 4 Weeks Plan: PT INTERVETIONS ROM SHOULDER (AAROM/AROM) ,RTC/SCAPUALR EX'S ,POSTURAL EX'S AND MANUAL THERAPY Subjective Subjective: This 77 y/o male presents to physical therapy with right shoulder pain. Patient has had shoulder pain for ~ 1 year. Patient eventually discussed with patient ~ 2weeks ago had x-rays OA . Patient recommended PT no medication. Patient located lateral deltoid described as ache/sharp pain. Aggravating factors lifting OH ,reaching behind my back affects ADLS and housework tasks self hygiene combing hair and bathing . Patient pain affects sleeping . Patient alleviating factors rest. Patient has been experiencing gradual weakness and pain . Patient goals to have less pain. Patient pain and weakness and affects QOL and function VOCATION: retired SOCIAL: Pain Right Shoulder: Pain Intensity (Out of 10): 7 Pain Intensity Range: 10 Objective Objective: POSTURE: mild forward posture PALAPTION: unremarkable NEURO: denies paresthesia/tingling , PALPATION: tender AC joint AROM: shoulder flexion 95 degrees ,abduction 90 degrees ,ER 75 degrees ,IR pelvis PROM: shoulder flexion 150 degrees ,abduction 155 degrees in scapular plane MMT: infraspinatus 10.2,supraspinatus 10.3 , subscapuris 10.9 CAPSULAR TIGHTNESS: mod tight CREPITUS WITH AROM Special Tests R Shoulder Supine Impingement Test - RC Tear: Negative R Shoulder Lift Off Test - Subscapular Tear: Negative R Shoulder Empty Can - SS: Positive R Shoulder Neer - Impingement: Positive R Shoulder Matias Justus - Impingement: Positive R Shoulder AC Resisted - AC: Positive R Shoulder Shrug Sign - OA/Adhesive Capsulitis: Positive Balance/Special Test Scores Quick DASH Score: 50.0000 Goals Goal 1:: Patient to be I with HEP for shoulder Goal Time Frame: 4-6 Weeks Goal 2:: This patient to demonstrate 50% improvement with increase ROM and strength Goal Time Frame: 4-6 Weeks Goal 3:: Patient to improve AROM shoulder flexion /abduction by 10-15 degrees to improve function Goal Time Frame: 4-6 Weeks Goal 4:: Patient to improve peak force of shoulder by 10# to improve function Goal Time Frame: 4-6 Weeks Goal 5:: Patient to improve quick dash by 5 points or> to improve function. Goal Time Frame: 4-6 Weeks Rehabilitation Potential Physical Therapy Diagnosis: This patient has right shoulder pain for apparent DJD in shoulder with crepitus loss of ROM , strength , along with pain ,doesnt appear RTC tear related but has weakness thus will benefit from skilled PT Rehabilitation Potential: Good Anticipated Interventions Patient/Client Instruction: Educate patient on: Condition and Plan of Care For the Purpose of:: To decrease pain, To increase ROM, To improve muscle performance and motor function, To increase tolerance to activity/condition/position, To improve ability of physical actions for home/c ommunity/work/leisure, To improve health of tissue, To decrease soft tissue restriction, To increase flexibility/ROM and To prevent re-injury Therapeutic Exercise to Include: Strength training, Postural training, Passive ROM and Active ROM For the Purpose of:: To decrease pain, To increase ROM, To improve muscle performance and motor function, To improve ability to perform ADL's, To increase tolerance to activity/condition/position, To improve ability of physical actions for home/community/work/leisure, To improve health of tissue, To decrease soft tissue restriction and To increase flexibility/ROM Manual Therapy Techniques to Include: Mobilization and Passive ROM Comment: G-H For the Purpose of:: To decrease pain, To increase ROM, To improve nutrient delivery to tissue, To increase oxygenation perfusion, To improve health of tissue and To increase flexibility/ROM Text: Thank you for the opportunity to evaluate your patient. For Medicare and Medicare HMO plans, please review the plan of care and approve it. It will need to be FAXED BACK to us at [phone] for Medicare purposes. For Medicare only, by signing this I certify the plan of care. Please let me know if there are questions or concerns regarding this plan of care. Physician Signature: Date:
--- NOTE | 2023-01-18 12:22 | HP.PTREVAL ---
Re-Evaluation Intro: Dr. Ac Crump MD, It has been my pleasure to treat FADY TERRY over the last 8 visits for RIGHT SHOULDER OA. Please see the progress note below for an update on the physical therapy plan of care! Subjective Subjective: Doing better overall ROM is improving pain is intermittent Objective Objective/Function: POSTURE: mild forward posture PALAPTION: unremarkable NEURO: denies paresthesia/tingling , PALPATION: tender AC joint AROM: shoulder flexion degrees 140 ,abduction 120 degrees ,ER 75 degrees ,IR L5 MMT: infraspinatus 12.8,supraspinatus 12.3 , subscapuris 11.5 CAPSULAR TIGHTNESS: mod tight CREPITUS WITH AROM Plan Plan Plan: REQUESTING 8 MORE SESSIONS PT INTERVETIONS ROM SHOULDER (AAROM/AROM) ,RTC/SCAPUALR EX'S ,POSTURAL EX'S AND MANUAL THERAPY Balance/Gait/Functional tests Balance/Special Test Scores Quick DASH Score: 45.4525 Goals Goals Goal 1:: Patient to be I with HEP for shoulder Goal Time Frame: 4-6 Weeks Goal Progress: Progressing Goal 2:: This patient to demonstrate 50% improvement with increase ROM and strength Goal Time Frame: 4-6 Weeks Goal Progress: Progressing Goal 3:: Patient to improve AROM shoulder flexion /abduction by 10-15 degrees to improve function ( NEW GOAL) Goal Time Frame: 4-6 Weeks Goal 4:: Patient to improve peak force of shoulder by 10# to improve function Goal Time Frame: 4-6 Weeks Goal Progress: Progressing Goal 5:: Patient to improve quick dash by 5 points or> to improve function. Goal Time Frame: 4-6 Weeks Goal Progress: Progressing Anticipated Interventions Anticipated Interventions Patient/Client Instruction: Educate patient on: Condition and Plan of Care For the Purpose of:: To decrease pain, To increase ROM, To improve muscle performance and motor function, To increase tolerance to activity/condition/position, To improve ability of physical actions for home/community/work/leisure, To improve health of tissue, To decrease soft tissue restriction, To increase flexibility/ROM and To prevent re-injury Therapeutic Exercise to Include: Strength training, Postural training, Passive ROM and Active ROM For the Purpose of:: To decrease pain, To increase ROM, To improve muscle performance and motor function, To improve ability to perform ADL's, To increase tolerance to activity/condition/position, To improve ability of physical actions for home/community/work/leisure, To improve health of tissue, To decrease soft tissue restriction and To increase flexibility/ROM Manual Therapy Techniques to Include: Mobilization and Passive ROM Comment: G-H For the Purpose of:: To decrease pain, To increase ROM, To improve nutrient delivery to tissue, To increase oxygenation perfusion, To improve health of tissue and To increase flexibility/ROM Re-Evaluation Ending Re-evaluation ending: Please do not hesitate to contact me at [phone] by phone or if you have questions or concerns regarding this new plan of care! Sincerely, Atif Ash, PT, Cert MDT, OCS
== END 2023-03-05 19:00 | disposition home or self-care (01) ==
LOC: PT 10:00
PROVIDERS: PCP Family Medicine; Referring Provider Family Medicine; Visit Provider Family Medicine
DX: M19.011 Primary osteoarthritis, right shoulder (principal)
CPT/HCPCS: 97110; 97162

== ENCOUNTER → 2023-03-11 | Outpatient (CLI) | payer MEDICARE, SELFPAY ==
--- NOTE | 2023-03-11 09:51 | ART_ITS ---
Reason For Study: Claudication Procedure A bilateral lower extremity continuous wave Doppler with analog waveform analysis and ankle brachial indexes. Left Segmental Pressures Left brachial= 197mmHg. Left posterior tibial artery = 222mmHg. Left dorsalis pedis artery = 211mmHg. Left digit = 193 mmHg. Right Segmental Pressures Right brachial= 198mmHg. Right posterior tibial artery = 154mmHg. Right dorsalis pedis artery = 149mmHg. Right digit = 119 mmHg. Indices The right ankle brachial index by the posterior tibial artery is 0.78. The right ankle brachial index by the dorsalis pedis is 0.75. The right digital-brachial index is 0.60. The left ankle brachial index by the posterior tibial artery is 1.12. The left ankle brachial index by the dorsalis pedis is 1.07. The left digital-brachial index is 0.97. VL/Ankle Brachial Index Interpretation Summary Right BOY 0.78, moderate arterial insufficiency. Doppler/PVR waveforms of the r ight ankle moderately diminished. Left BOY 1.12, normal. TBI and Doppler/PVR waveforms of the left ankle normal a t rest. Ordering Physician: Ac Morelos Referring Physician: DEANNE MORELOS MD Performed By: Kayleigh Baird RDCS/RVT
== END | disposition home or self-care (01) ==
LOC: CVS 09:49
PROVIDERS: PCP Family Medicine; Referring Provider Family Medicine; Visit Provider Family Medicine
DX: I73.9 Peripheral vascular disease, unspecified (principal)
CPT/HCPCS: 93922

== ENCOUNTER → 2023-03-26 | Outpatient (CLI) | payer MEDICARE, SELFPAY ==
--- NOTE | 2023-03-26 08:46 | RDU_ITS ---
Reason For Study: HTN Right Renal Artery Left Renal Artery Right renal artery ostium Left renal artery ostium 119.8/30.3 119.8/28.5 RSV/EDV. PSV/EDV. Right renal artery proximal Left renal artery proximal PSV/EDV 114.3/23.0 PSV/EDV. 167.4/32.6 . Right renal artery mid 195.9/43.0 Left renal artery mid 128.9/19.4 PSV/EDV. PSV/EDV . Right renal artery distal Left renal artery distal 141.7/23.0 148.4/27.7 PSV/EDV. PSV/EDV. Right RAR 3.2. Left RAR 2.8. Right Renal Parenchyma Left Renal Parenchyma Upper Pole Medula 44.8/10.2 Left upper pole medulla 24.0/5.8 PSV/EDV. PSV/EDV . Right upper pole medulla EDR .23 . Left upper pole medulla EDR .24 . Right upper pole medulla R.I. .77 . Left upper pole medulla R.I. .76 . Upper Dwight Cortx 27.3/5.8 PSV/EDV. UP Cortex 20.1/5.3 PSV/EDV. Right upper pole cortex EDR .21 . Left upper pole cortex EDR .26 . Right upper pole cortex R.I. .79 . Left upper pole cortex R.I. .74 . Right lower Pole medulla 38.2/9.1 Left lower Pole medulla 40.4/10.8 PSV/EDV . PSV/EDV . Right lower pole medulla EDR .24 . Left lower pole medulla EDR .27 . Right lower pole medulla R.I. .76 . Left lower pole medulla R.I. .73 . Lower Pole Cortex 25.1/6.4 PSV/EDV. Lower Pole Cortx 19.0/6.4 PSV/EDV. Right lower pole cortex EDR .25 . Left lower pole cortex EDR .34 . Right lower pole cortex R.I. .75 . Left lower pole cortex R.I. .66 . Right Renal Hilar Left Renal Hilar Right hilar acceleration time 40 Left hilar acceleration time 50 m/sec. m/sec. Right Hilar avg 37.2/9.6 PSV/EDV. LT Hilar avg 48.9/10.2 PSV/EDV . Right Renal Dimensions Left Renal Dimensions Right kidney size 10.7 cm . Left kidney size 11.4 cm . Right cortical dimension 1.31 cm . Left cortical dimension 1.52 cm . Aorta Proximal abdominal aorta 1.76 x 1.71 cm . Proximal abdominal aorta peak systolic velocity is 59.8 cm/sec . Distal abdominal aorta 2.07 x 2.02 cm . Distal abdominal aorta peak systolic velocity is 47.8 cm/sec . Normal renal veins bilat. VL/Renal Artery Duplex Ultrasound Interpretation Summary Right renal artery patent with elevated velocities but normal renal-aortic rati o indicates no significant stenosis Left renal artery patent with normal velocities and no evidence of stenosis. Right renal vein patent Left renal vein paten Right kidney normal in size Left kidney normal in size Ordering Physician: Ac Crump Performed By: Cristo Salguero RVT
== END | disposition home or self-care (01) ==
LOC: CVS 08:45
PROVIDERS: PCP Family Medicine; Referring Provider Family Medicine; Visit Provider Family Medicine
DX: I10 Essential (primary) hypertension (principal)
CPT/HCPCS: 93975

== ENCOUNTER → 2023-07-01 | Outpatient (CLI) | payer MEDICARE, SELFPAY ==
[2023-07-01 14:14] LABS: Anion Gap 7 (5-15); BUN 40 mg/dL (7-18); BUN/Creat Ratio 26.1 RATIO (10-20); Calcium,Total 9.9 mg/dL (8.5-10.1); Chloride 109 mmol/L (98-107); Creatinine, Serum 1.53 mg/dL (0.70-1.30); EST Glomerular Filtration Rate 47 mL/min (>60); Est Glom Filt Rate - Afr Amer 57 mL/min (>60); Glucose 102 mg/dL (74-106); Potassium 4.7 mmol/L (3.5-5.1); Sodium Level 141 mmol/L (136-145)
== END | disposition home or self-care (01) ==
PROVIDERS: PCP Family Medicine; Referring Provider Nurse Practitioner Family; Visit Provider Nurse Practitioner Family
DX: I50.42 Chronic combined systolic (congestive) and diastolic (congestive) heart failure (principal)
CPT/HCPCS: 36415; 80048

== ENCOUNTER → 2023-07-17 | Outpatient (CLI) | payer MEDICARE, SELFPAY ==
[2023-07-17 12:27] LABS: Anion Gap 5 (5-15); BUN 29 mg/dL (7-18); BUN/Creat Ratio 18.8 RATIO (10-20); Calcium,Total 9.2 mg/dL (8.5-10.1); Chloride 106 mmol/L (98-107); Creatinine, Serum 1.54 mg/dL (0.70-1.30); EST Glomerular Filtration Rate 47 mL/min (>60); Est Glom Filt Rate - Afr Amer 57 mL/min (>60); Glucose 109 mg/dL (74-106); Potassium 4.7 mmol/L (3.5-5.1); Sodium Level 137 mmol/L (136-145)
== END | disposition home or self-care (01) ==
PROVIDERS: PCP Family Medicine; Referring Provider Nurse Practitioner Gerontology; Visit Provider Nurse Practitioner Gerontology
DX: N28.9 Disorder of kidney and ureter, unspecified (principal)
CPT/HCPCS: 36415; 80048

== ENCOUNTER → 2023-08-06 | Outpatient (CLI) | payer MEDICARE, SELFPAY ==
[2023-08-06 12:58] LABS: Anion Gap 5 (5-15); BUN 24 mg/dL (7-18); BUN/Creat Ratio 19.8 RATIO (10-20); Calcium,Total 9.8 mg/dL (8.5-10.1); Chloride 108 mmol/L (98-107); Creatinine, Serum 1.21 mg/dL (0.70-1.30); EST Glomerular Filtration Rate 62 mL/min (>60); Est Glom Filt Rate - Afr Amer 75 mL/min (>60); Glucose 101 mg/dL (74-106); Potassium 4.6 mmol/L (3.5-5.1); Sodium Level 138 mmol/L (136-145)
== END | disposition home or self-care (01) ==
LOC: MTLAB 09:45
PROVIDERS: PCP Family Medicine; Referring Provider Nurse Practitioner Family; Visit Provider Nurse Practitioner Family
DX: I10 Essential (primary) hypertension (principal); N28.9 Disorder of kidney and ureter, unspecified
CPT/HCPCS: 36415; 80048

== ENCOUNTER → 2023-11-21 | Outpatient (CLI) | payer MEDICARE, SELFPAY ==
--- NOTE | 2023-11-21 08:56 | ECHOD_ITS ---
Reason For Study: AORTIC ROOT DILATION Procedure This was a 2D Doppler, Color Flow transthoracic echocardiogram. Exam performed in department. Left Ventricle Normal LV size. Mild concentric left ventricular hypertrophy. The left ventricular ejection fraction is 65 %. Stage 1 diastolic dysfunction. Right Ventricle Normal right ventricle. Atria The left and right atria are normal. Mitral Valve Trivial mitral valve insufficiency. Tricuspid Valve Trivial tricuspid valve insufficiency. Unable to estimate RV systolic pressure due to insufficient tricuspid regurgitant envelope. Aortic Valve Trisinus/trileaflet aortic valve. Pulmonic Valve The pulmonic valve is not well visualized. Great Vessels Mild to moderately dilated ascending aorta. Pericardium/Pleural No pericardial effusion. MMode/2D Measurements & Calculations LVIDd: 5.2 cm IVSd: 1.4 cm LVOT diam: 2.1 cm LVIDs: 3.9 cm LVPWd: 1.2 cm LVOT area: 3.4 cm2 FS: 24.4 % Ao root diam: 3.7 cm LAV(MOD-bp): 53.6 ml LVAd ap4: 34.8 cm2 LAV(MOD-bp) Indexed: 24.4 ml/m2 LVLd ap4: 9.1 cm LAV(MOD-sp2): 56.2 ml EDV(MOD-sp4): 115.9 ml LAV(MOD-sp4): 50.8 ml EDV(sp4-el): 112.9 ml LVAs ap4: 17.6 cm2 LVLs ap4: 7.1 cm ESV(MOD-sp4): 41.1 ml ESV(sp4-el): 37.3 ml EF(MOD-sp4): 64.5 % EF(sp4-el): 66.9 % SV(MOD-sp4): 74.8 ml SV(sp4-el): 75.6 ml LA A4 area: 19.9 cm2 LA dimension(2D): 4.1 cm RA A4 area: 20.8 cm2 TAPSE: 2.6 cm Time Measurements MV dec time: 0.35 sec Doppler Measurements & Calculations MV E max lyndon: 40.1 cm/sec Lat Peak E' Lyndon: 10.2 cm/sec Med Peak E' Lyndon: 6.7 cm/sec MV A max lyndon: 61.4 cm/sec E/E' lat: 4.0 E/E' med: 6.0 MV E/A: 0.65 MV V2 max: 79.2 cm/sec Ao V2 max: 145.7 cm/sec MV max P.5 mmHg MV dec slope: 113.7 cm/sec2 Ao max P.5 mmHg MV V2 mean: 37.4 cm/sec Ao V2 mean: 99.1 cm/sec MV mean P.71 mmHg Ao mean P.5 mmHg MV V2 VTI: 23.5 cm Ao V2 VTI: 34.2 cm AV (velocity ratio): 0.74 MVA(VTI): 3.7 cm2 DIMITRY(I,D): 2.5 cm2 DIMITRY(V,D): 2.6 cm2 LV V1 max: 112.9 cm/sec SV(LVOT): 86.2 ml PA V2 max: 86.1 cm/sec LV V1 max P.1 mmHg PA V2 mean: 55.0 cm/sec LV V1 mean P.5 mmHg LV V1 mean: 73.1 cm/sec LV V1 VTI: 25.4 cm ECHO/Echo Complete Interpretation Summary Mild concentric left ventricular hypertrophy. The left ventricular ejection fraction is 65 %. Stage 1 diastolic dysfunction. The ascending aorta appears to be mild to moderately dilated. Recommend CT scan for further evaluation. Ordering Physician: Bidr Crump Referring Physician: Bird Crump Performed By: Tennille Villeda RCS
== END | disposition home or self-care (01) ==
PROVIDERS: PCP Family Medicine; Referring Provider Family Medicine; Visit Provider Family Medicine
DX: I77.810 Thoracic aortic ectasia (principal); I51.7 Cardiomegaly
CPT/HCPCS: 93306

== ENCOUNTER 2024-01-07 09:00 | Outpatient (RCR) | payer MEDICARE, SELFPAY ==
--- NOTE | 2023-09-17 16:17 | HP.OTEVAL_ITS ---
Patient's Visit Information Visit Information Visit Information: FADY TERRY is a 77 year old M, referred to Occupational Therapy by Dr. Jigar Cates DO, with a diagnosis of palmar fascial fibromosis. Date of Evaluation: 09/17/23 Occupational Therapist: Yari Cox Subjective Subjective: This 77 year old male referred to OT at this time due to palmar fascial fibromatosis L hand D3 with injection and release. Pt received injection then three days laterl release to cord into extension with small lesion at MCP crease volarly. Pt plan is to get D5 done appointment scheduled September [address] again. The plan to get R hand D4 complete. Pt is R hand dominant states he has had improved use of L hand since release of L hand D3. OT nec at this time for fabrication of resting holden orthosis for nighttime wear. 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 injection and release to L hand D3. ROM Shoulder: wfl Elbow: wfl Forearm: wfl Wrist: wfl MP: L D3 -20/80 L -40/85 LD 5 -50/75 R D5 0/80 R D4 -55/85 L -30/70 Sensation Sensation Comments: denies Quick DASH-Disab of Arm,Shoulder& Hand Quick DASH Score: 15.9075 Goals Goal:100% adherence to protocol: Yes Goal:No pain with affected hand use: Yes Goal:Full use of affected hand in daily activities including work: Yes Other Goal: pt will demonstrate 100% accuracy in proper wear and fit of resting holden orthosis provided at [facility] for nighttime wear by second session pt will verbalize/ demonstrate 100% accuracy in HEP reverse blocking 3/3 trials by second session pt will verbalize/demonstrate 100% accuracy in proper joint protection and positioning during daily tasks within 8 weeks Rehabilitation Rehabilitation Potential: Good Anticipated Interventions Anticipated Interventions: A/AAROM/PROM, Triggerpoint Release, Modalities, Joint Protection/Energy Conservation, Education re assistive Equipment, Education re Diagnosis and Home Program Visit Plan Frequency: 1x/Week Duration: 6 Weeks General Plan: reverse blocking bracing joint positioning and protection education TEXT: Thank you for the opportunity to evaluate your patient. For Medicare and Medicare HMO plans, please review the plan of care and approve it. It will need to be FAXED BACK to us at [phone] for Medicare purposes. Please let me know if there are questions or concerns regarding this plan of care. Physician Signature: Date:
== END 2024-01-07 19:00 | disposition home or self-care (01) ==
LOC: OT 09:00
PROVIDERS: PCP Family Medicine; Referring Provider Student in an Organized Health Care Education/Training Program; Visit Provider Student in an Organized Health Care Education/Training Program
DX: M79.642 Pain in left hand (principal); M72.0 Palmar fascial fibromatosis [Dupuytren]
CPT/HCPCS: 97166; 97530; 97760

== ENCOUNTER → 2024-01-11 | Outpatient (CLI) | payer MEDICARE, SELFPAY ==
--- NOTE | 2024-01-11 07:50 | CT_ITS ---
STUDY: CT Chest W/O Contrast Injection 01/12/2024 8:57 PM REASON FOR EXAM: Male, 78 years old. ASCENDING THORACIC ANEURYSM FU Individualized dose optimization techniques were used for this CT. TECHNIQUE: Transaxial imaging was performed without contrast material. COMPARISON: 07.27.22 FINDINGS: There are degenerative changes of the shoulders. There is no pneumothorax. There is no demonstrated pleural abnormality. There are calcifications of the coronary arteries. Normal mediastinum. Normal hilar regions. Normal pulmonary arteries. There is atherosclerotic calcification of the aortic arch with tortuosity and elongation of the aortic arch and descending thoracic aorta. There is aneurysmal dilatation of the ascending aorta. The transverse diameter of the ascending aorta measures (in mm): 44. Aortic arch diameter is 29. Descending thoracic aorta diameter is 29 mm. Pulmonary artery diameters 25 mm. There are multi-level degenerative changes of the thoracic spine. There are no acute findings of the upper abdomen. CT/Chest without Contrast IMPRESSION: Stable ascending thoracic aortic aneurysm. Electronically Signed: Christopher Bucio MD at 21:00 EDT ,
== END | disposition home or self-care (01) ==
LOC: CT 07:45
PROVIDERS: PCP Family Medicine; Referring Provider Family Medicine; Visit Provider Family Medicine
DX: I77.810 Thoracic aortic ectasia (principal)
CPT/HCPCS: 71250

== ENCOUNTER → 2024-07-30 | Outpatient (CLI) | payer MEDICARE, SELFPAY ==
[2024-07-30 15:56] LABS: Hematocrit 43.8 % (40-54); Hemoglobin 14.4 g/dL (13.0-16.5); Mean Corp Hgb Conc 32.9 g/dL (32-36); Mean Corpuscular Hgb 32.5 pg (27.0-32.0); Mean Corpuscular Volume 98.9 fL (80-94); Mean Platelet Vol. 10.7 fl (6.2-12.0); Platelet Count 192 K/mm3 (150-450); RBC Distribution Width CV 13.8 % (11.6-14.6); RBC Distribution Width SD 50.6 fl (35.1-43.9); Red Blood Count 4.43 M/mm3 (4.6-6.2); White Blood Count 8.5 K/mm3 (4.4-11.0)
[2024-07-30 17:00] LABS: ALB/GLOB Ratio 1.3 RATIO (0.9-2.4); AST(SGOT) 24 U/L (<=37); Alanine Aminotransfer ALT/SGPT 17 U/L (<=46); Albumin, Serum 4.3 g/dL (3.4-4.8); Alkaline Phosphatase 94 U/L (40-129); Anion Gap 13 (5-15); BUN 25 mg/dL (4-19); BUN/Creat Ratio 20.1 RATIO (10-20); Carbon Dioxide 23.4 mmol/L (21.0-32.0); Chloride 103 mmol/L (98-108); Creatinine, Serum 1.22 mg/dL (0.70-1.20); EST Glomerular Filtration Rate 61 (>60); Globulin 3.2 g/dL (2.2-4.2); Glucose 110 mg/dL (70-99); Potassium 4.5 mmol/L (3.3-5.1); Protein, Total 7.5 g/dL (5.9-8.4); Sodium Level 139 mmol/L (133-145); Thyroid Stim Hormone (TSH) 0.222 uIU/mL (0.300-4.200); Total Bilirubin 1.04 mg/dL (0.00-1.30)
[2024-07-30 17:24] LABS: Cholesterol 111 mg/dL (<=200); High Density Lipoprotein 63 mg/dL; Low Density Lipoprotein Calc. 37 mg/dL; Triglycerides 55 mg/dL; Very Low Density Lipoprotein 11 mg/dL (5-40); cholesterol:hdl ratio screen 1.76
== END | disposition home or self-care (01) ==
PROVIDERS: PCP Family Medicine; Referring Provider Family Medicine; Visit Provider Family Medicine
DX: I48.91 Unspecified atrial fibrillation (principal); E78.5 Hyperlipidemia, unspecified; E03.9 Hypothyroidism, unspecified
CPT/HCPCS: 36415; 80053; 80061; 84439; 84443; 85027

== ENCOUNTER → 2024-11-03 | Outpatient (CLI) | payer MEDICARE, SELFPAY ==
[2024-11-03 14:43] LABS: Anion Gap 13 (5-15); BUN 14 mg/dL (4-19); BUN/Creat Ratio 15.5 RATIO (10-20); Calcium,Total 9.9 mg/dL (7.6-11.0); Carbon Dioxide 24.5 mmol/L (21.0-32.0); Chloride 102 mmol/L (98-108); Glucose 104 mg/dL (70-99); Potassium 4.3 mmol/L (3.3-5.1)
== END | disposition home or self-care (01) ==
LOC: MFPLAB 09:01
PROVIDERS: PCP Family Medicine; Referring Provider Family Medicine; Visit Provider Family Medicine
DX: E03.9 Hypothyroidism, unspecified (principal); N18.30 Chronic kidney disease, stage 3 unspecified
CPT/HCPCS: 36415; 80048; 84439; 84443

== ENCOUNTER → 2025-02-15 | Outpatient (CLI) | payer MEDICARE, SELFPAY ==
--- OUTSIDE RECORDS SUMMARY | 2025-02-15 10:12 | XMS RPT_ITS | CCD ---
Author Organization [facility] CliniSyut Care Team Providers Care Regional Vice President Life Sales Name Role Phone Dr. Ac Crump Primary Care Provider [phone] Dr. Ac Crump Referring Provider Roof PROFESSOR OF OCEANOGRAPHY, PROFESSOR OF OCEANOGRAPHY-Raisa Russ Attending Provider Dr. Ac Crump Primary Care Provider [phone] Dr. Ac Crump Referring Provider Dr. Nolan Walter Attending Provider [phone] Dr. Nolan Walter Referring Provider [phone] Nolan Walter Other Provider Dr. Ac Crump Primary Care Provider Dr. Nolan Walter Attending Provider [phone] Ac Crump Referring Provider Roof PROFESSOR OF OCEANOGRAPHY, ASHA-Raisa Russ Attending Provider Dr. Ac Crump Primary Care Provider [phone] Dr. Ac Crump Primary Care Provider Dr. Ac Crump Referring Provider Roof PROFESSOR OF OCEANOGRAPHY, PROFESSOR OF OCEANOGRAPHY-Raisa Russ Attending Provider Dr. Anton Perdomo Attending Provider [phone] Ac Crump Primary Care Provider Dr. Ac Crump Referring Provider Dr. Anton Perdomo Attending Provider [phone] Roof PROFESSOR OF OCEANOGRAPHY, PROFESSOR OF OCEANOGRAPHY-Raisa Russ Attending Provider Dr. Bird Crump Primary Care Provider [phone] Dr. Bird Crump Referring Provider Dr. Anton Perdomo Attending Provider Dr. Bird Crump Primary Care Provider [phone] Dr. Bird Crump Referring Provider Theron COLIN, Dr. Pang Primary Care Provider Theron COLIN, Dr. Pang Attending Provider [phone] Theron COLIN, Dr. Pang Referring Provider [phone] Roof PROFESSOR OF OCEANOGRAPHY-C, Timothy Russ Attending Provider Bird Crump Primary Care Unavailable Roof PROFESSOR OF OCEANOGRAPHY, Timothy Russ Attending Unavailable Theron, Bird Referring Unavailable Theron, Bird Primary Care Unavailable Bird Crump Attending Unavailable Theron, Bird Referring Unavailable Theron, Bird Primary Care Unavailable Roof PROFESSOR OF OCEANOGRAPHY, Timothy Russ Attending Unavailable Bird Crump Referring Unavailable Nolan Walter Attending Unavailable Bird Crump Referring Unavailable Theron, Bird Primary Care Unavailable Bird Crump Attending Unavailable Bird Crump Referring Unavailable Bird Crump Primary Care Unavailable Theron, Bird Primary Care Unavailable Bird Crump Attending Unavailable Bird Crump Referring Unavailable Theron COLIN, Dr. Pang Primary Care Physicia n Dr. Bird Crump MD Attending Physician Dr. Bird Crump MD Referring Provider Saba COLIN, Dr. Francisco Attending Physician Medications Current Medications Medication Drug Class(es) Dates Sig (Normalized) Sig (Original) amiodarone hydrochloride 200 mg oral tablet (20 sources) Antiarrhythmic Start: 07-31-2024 End: 07-31-2024 Amiodarone 200 mg tablet Active 100 mg PO daily 45 July 31, 2024 3:05pm Complies with drug therapy Start: 12-03-2023 End: 07-31-2024 take 1 tablet by mouth once daily Amiodarone 100 mg tablet Discontinued 0 .ROUTE .COMPLEX 45 3 February 12, 2024 4:06pm July 31, 2024 1:17pm take 1 tablet by mouth daily Start: 02-03-2020 End: 12-03-2023 take 1 tablet by mouth once daily Amiodarone 200 mg tablet Discontinued 0 .ROUTE .COMPLEX 90 3 January 08, 2023 9:43am December 03, 2023 11:02am take 1 tablet by mouth daily amLODIPine 10 mg oral tablet (20 sources) Dihydropyridine Calcium Channel Enrique Start: 08-24-2024 take 1 tablet by mouth once daily Amlodipine 10 mg tablet Active 10 mg PO daily August 24, 2024 12:00am Complies with drug therapy Start: 08-13-2023 End: 02-24-2024 take 1 tablet by mouth once daily Amlodipine 5 mg tablet Discontinued 5 mg PO DAILY 90 3 August 13, 2023 12:00am February 24, 2024 10:04am Start: 06-13-2023 End: 08-13-2023 take 1 tablet by mouth once daily Amlodipine 10 mg tablet Discontinued 10 mg PO DAILY 90 3 July 29, 2023 10:20am August 13, 2023 4:14pm Start: 05-13-2023 End: 06-13-2023 take 1 tablet by mouth once daily Amlodipine 5 mg tablet Discontinued 5 mg PO DAILY 90 May 13, 2023 12:04pm June 13, 2023 3:48pm Start: 05-13-2023 End: 05-13-2023 take 2 tablets by mouth once daily Amlodipine 2.5 mg tablet Discontinued 5 mg PO DAILY May 13, 2023 1:00am May 13, 2023 12:05pm Start: 05-13-2023 End: 05-13-2023 take 5 mg by mouth once daily Amlodipine Discontinued 5 MG PO DAILY May 13, 2023 1:00am May 13, 2023 12:05pm Start: 10-16-2022 End: 01-08-2023 take 1 tablet by mouth once daily Amlodipine 2.5 mg tablet Discontinued 2.5 mg PO DAILY 90 October 16, 2022 12:00am January 08, 2023 9:20am This a dose DECREASE Start: 10-15-2022 End: 10-16-2022 take 1 tablet by mouth once daily Amlodipine 5 mg tablet Discontinued 5 mg PO DAILY 30 October 15, 2022 9:26am October 16, 2022 9:00am Start: 08-05-2020 End: 10-15-2022 take 1 tablet by mouth twice daily Amlodipine 5 mg tablet Discontinued 5 mg PO TWICE A DAY 60 December 18, 2021 12:55pm October 15, 2022 9:27am Start: 03-02-2015 End: 07-08-2019 take 1 tablet by mouth once daily Amlodipine 10 MG tablet Discontinued 10 mg PO DAILY March 02, 2015 1:00am July 08, 2019 9:14am b/p carvedilol 3.125 mg oral tablet (20 sources) alpha-Adrenergic Enrique, beta-Adrenergic Enrique Start: 02-03-2020 End: 02-03-2020 take 1 tablet by mouth twice daily at mealtime Carvedilol 6.25 mg tablet Discontinued 6.25 mg PO TWICE A DAY February 03, 2020 12:00am February 03, 2020 3:17pm must administer with a meal/food Start: 07-08-2019 End: 01-22-2025 take 1 tablet by mouth at mealtime Carvedilol 3.125 mg tablet Discontinued 3.125 mg PO AT BEDTIME January 22, 2025 1:16pm January 22, 2025 1:53pm must administer with a meal/food levothyroxine sodium 0.1 mg oral tablet (20 sources) l-Thyroxine Start: 02-18-2023 End: 12-03-2023 take 1 tablet by mouth once daily Levothyroxine 100 mcg tablet Active 100 ug PO DAILY December 03, 2023 10:26am Complies with drug therapy Start: 10-15-2022 End: 02-18-2023 take 1 capsule by mouth once daily Levothyroxine 100 mcg capsule Discontinued 100 ug PO DAILY October 15, 2022 12:00am February 18, 2023 11:16am loperamide hydrochloride 2 mg / simethicone 125 mg oral tablet (8 sources) Opioid Agonist Start: 02-18-2023 take 4 tablets by mouth every twenty-four hours as needed Loperamide-Simethicone (Anti-Diarrheal (Anibal)-Anti-Gas) 2-125 mg tablet Active 0.5 {tbl} PO every other day as needed February 18, 2023 1:00am do not exceed 4 tabs in 24 hrs Complies with drug therapy Start: 02-18-2023 take 4 tablets by mo uth every twenty-four hours as needed Loperamide-Simethicone (Anti-Diarrheal (Anibal)-Anti-Gas) 2-125 mg tablet Active 0.5 {tbl} PO every other day as needed February 18, 2023 1:00am do not exceed 4 tabs in 24 hrs Start: 02-18-2023 take 4 tablets by mo uth every twenty-four hours Loperamide-Simethicone (Anti-Diarrheal (Anibal)-Anti-Gas) 2-125 mg tablet Active 0.5 TABLET PO every other day February 18, 2023 1:00am do not exceed 4 tabs in 24 hrs Start: 02-18-2023 take 4 tablets by mo uth every twenty-four hours Loperamide-Simethicone (Anti-Diarrheal (Anibal)-Anti-Gas) 2-125 mg tablet Active 0.5 TABLET PO every other day February 18, 2023 12:00am do not exceed 4 tabs in 24 hrs losartan potassium 50 mg oral tablet (20 sources) Angiotensin 2 Receptor Enrique Start: 02-03-2020 take 2 tablets by mouth once daily Losartan 50 mg tablet Active 100 mg PO DAILY February 03, 2020 2:34pm Complies with drug therapy Start: 02-03-2020 take 100 mg by mouth once vasile y Losartan Active 100 MG PO DAILY February 03, 2020 2:34pm Start: 07-28-2019 End: 07-28-2019 take 2 tablets by mouth once daily Losartan 25 mg tablet Discontinued 50 mg PO DAILY July 28, 2019 8:46am July 28, 2019 8:49am Start: 07-28-2019 End: 07-28-2019 take 50 mg by mouth once daily Losartan Discontinued 5 0 MG PO DAILY July 28, 2019 8:46am July 28, 2019 8:49am Start: 07-28-2019 End: 02-03-2020 take 1 tablet by mouth once daily Losartan 50 mg tablet Discontinued 50 mg PO DAILY 30 July 28, 2019 8:50am February 03, 2020 2:35pm Start: 07-08-2019 End: 07-28-2019 take 1 tablet by mouth once daily Losartan 25 MG tablet Discontinued 25 mg PO DAILY 60 0 July 08, 2019 12:00am July 28, 2019 8:47am tadalafil 20 mg oral tablet (18 sources) Phosphodiesterase 5 Inhibitor Start: 06-13-2021 take 1 tablet by mouth once as needed Tadalafil 20 mg tablet Active 20 mg PO ONCE as needed June 13, 2021 1:00am Complies with drug therapy Completed/Discontinued Medications Medication Drug Class(es) Dates Sig (Normalized) Sig (Original) apixaban 5 mg oral tablet (20 sources) Factor Xa Inhibitor Start: 01-26-2020 End: 05-15-2024 take 1 tablet by mouth twice daily Apixaban (Eliquis) 5 mg tablet Discontinued 5 mg PO TWICE A DAY 60 11 May 14, 2023 1:08pm May 15, 2024 10:30am aspirin 81 mg delayed release oral tablet (20 sources) Platelet Aggregation Inhibitor, Nonsteroidal Anti-inflammatory Drug Start: 07-08-2019 End: 03-16-2020 take 1 tablet by mouth once daily Aspirin 81 mg tablet,delayed release (DR/EC) Discontinued 81 mg PO DAILY@0800 90 3 July 28, 2019 8:50am March 16, 2020 10:33am atorvastatin 80 mg oral tablet (20 sources) HMG-CoA Reductase Inhibitor Start: 08-26-2020 End: 08-13-2022 take 1 tablet by mouth at bedtime Atorvastatin Discontinued 0 .ROUTE .COMPLEX 90 August 14, 2021 12:20pm August 13, 2022 11:27am take 1 tablet by mouth at bedtime Start: 07-08-2019 End: 10-02-2024 take 1 tablet by mouth at bedtime Atorvastatin 80 mg tablet Discontinued 0 .ROUTE .COMPLEX 90 3 2023 10:31am August 24, 2024 9:37am take 1 tablet by mouth at bedtime cephalexin 500 mg oral capsule (12 sources) Cephalosporin Antibacterial Start: 10-15-2022 End: 10-22-2022 take 1 capsule by mouth every eight hours Cephalexin 500 mg capsule Discontinued 500 mg PO Q8H 21 7 0 October 15, 2022 12:00am October 21, 2022 12:00am October 22, 2022 12:03am clopidogrel 75 mg oral tablet (20 sources) P2Y12 Platelet Inhibitor Start: 02-24-2024 End: 10-16-2024 take 1 tablet by mouth once daily Clopidogrel 75 mg tablet Discontinued 75 mg PO daily August 24, 2024 10:04am October 16, 2024 7:27am Start: 07-08-2019 End: 12-03-2023 take 1 tablet by mouth once daily Clopidogrel 75 mg tablet Discontinued 0 .ROUTE .COMPLEX 30 September 05, 2023 10:48am December 03, 2023 11:03am take 1 tablet by mouth daily furosemide 20 mg oral tablet (20 sources) Loop Diuretic Start: 08-24-2024 End: 01-22-2025 take 1 tablet by mouth once daily as needed Furosemide 20 mg tablet Discontinued 20 mg PO daily as needed August 24, 2024 12:00am January 22, 2025 1:16pm Start: 07-09-2023 End: 12-03-2023 Furosemide 40 mg tablet Disc ontinued 20 mg PO DAILY July 09, 2023 11:04am December 03, 2023 10:28am Start: 07-09-2023 take 20 mg by mouth once daily Furosemide Active 20 MG PO DAILY July 09, 2023 11:04am Start: 06-13-2023 End: 07-09-2023 take 1 tablet by mouth once daily Furosemide 40 mg tablet Discontinued 40 mg PO DAILY June 13, 2023 1:00am July 09, 2023 11:05am Start: 10-15-2022 End: 06-13-2023 take 2 tablets by mouth in the morning, then take 1 tablet by mouth in the evening Furosemide 20 mg tablet Discontinued 40 mg PO .COMPLEX January 08, 2023 9:21am June 13, 2023 3:48pm 40 mg orally; 40mg in AM and 20mg in PM Start: 10-15-2022 End: 06-13-2023 take 40 mg by mouth in the morning, then take 20 mg by mouth in the evening Furosemide Discontinued 40 MG PO .COMPLEX January 08, 2023 9:21am June 13, 2023 3:48pm 40 mg orally; 40mg in AM and 20mg in PM Start: 10-15-2022 End: 10-15-2022 take 1 tablet by mouth once daily Furosemide 20 mg tablet Discontinued 20 mg PO DAILY October 15, 2022 12:00am October 15, 2022 9:27am hydroCHLOROthiazide 25 mg oral tablet (20 sources) Thiazide Diuretic Start: 10-17-2021 End: 10-15-2022 Hydrochlorothiazide 25 mg tablet Discontinued NMA PO October 17, 2021 12:00am October 15, 2022 8:58am Start: 10-17-2021 End: 10-15-2022 Hydrochlorothiazide Disconti nued EACH PO October 17, 2021 12:00am October 15, 2022 8:58am Start: 02-03-2020 End: 10-17-2021 take 2 tablets by mouth once daily Hydrochlorothiazide 12.5 mg tablet Discontinued 25 mg PO DAILY February 03, 2020 2:35pm October 17, 2021 9:00am Start: 02-03-2020 End: 10-17-2021 take 25 mg by mouth once daily Hydrochlorothiazide Discontinued 25 MG PO DAILY February 03, 2020 2:35pm October 17, 2021 9:00am Start: 08-10-2019 End: 02-03-2020 take 1 tablet by mouth once daily Hydrochlorothiazide 12.5 mg tablet Discontinued 12.5 mg PO DAILY 30 August 10, 2019 12:00am February 03, 2020 2:35pm spironolactone 25 mg oral tablet (20 sources) Aldosterone Antagonist Start: 12-03-2023 End: 08-24-2024 Spironolactone 25 mg tablet Discontinued 12.5 mg PO DAILY 90 July 31, 2024 4:52pm August 24, 2024 9:55am OK to use with Furosemide Start: 06-13-2023 End: 12-03-2023 take 1 tablet by mouth once daily Spironolactone 25 mg tablet Discontinued 25 mg PO DAILY 90 June 13, 2023 3:50pm December 03, 2023 10:29am OK to use with Furosemide Problems Active Problems Problem Classification Problem Date Documented Da te Episodic/Chronic Acute myocardial infarction (18 sources) Myocardial infarction; Translations: [Non-ST elevation (NSTEMI) myocardial infarction] Onset: 07-06-2019 05-10-2021 Chronic Cardiac dysrhythmias (20 sources) Paroxysmal atrial fibrillation; Translations: [Paroxysmal atrial fibrillation] Onset: 08-04-2024 Chronic Cardiac dysrhythmias (17 sources) Bradycardia; Translations: [Bradycardia, unspecified] 10-17-2021 Episodic Conduction disorders (20 sources) Right bundle branch block; Translations: [Unspecified right bundle-branch block] 10-17-2021 Chronic Congestive heart failure; nonhypertensive (17 sources) Chronic combined systolic and diastolic heart failure; Translations: [Chronic combined systolic (congestive) and diastolic (congestive) heart failure] 10-14-2021 Chronic Coronary atherosclerosis and other heart disease (20 sources) Acute coronary syndrome; Translations: [Acute ischemic heart disease, unspecified] 07-21-2019 Chronic Disorders of lipid metabolism (20 sources) Hyperlipidemia; Translations: [Hyperlipidemia, unspecified] Chronic Essential hypertension (20 sources) Essential hypertension; Translations: [Essential (primary) hypertension] Chronic Other circulatory disease (18 sources) Carotid bruit; Translations: [Other specified symptoms and signs involving the circulatory and respiratory systems] 05-10-2021 Episodic Other diseases of kidney and ureters (5 sources) Renal impairment; Translations: [Disorder of kidney and ureter, unspecified] 07-09-2023 Episodic Thyroid disorders (2 sources) Hypothyroidism, unspecified; Translations: [Hypothyroidism, unspecified] Onset: 08-03-2024 Chronic Past or Other Problems Problem Classification Problem Date Documented Da te Episodic/Chronic Coronary atherosclerosis and other heart disease (13 sources) Presence of coronary angioplasty implant and graft; Translations: [Percutaneous transluminal coronary angioplasty status] Onset: 07-07-2019 Episodic Results Test Name Value Interpretation Reference Range Facility Cardiology Visit Reporton Cardiology Visit Report [facility] [address] [place] [address] OFFICE VISIT Date of Service: 01/22/25 MR#: [id number] Acct: [id number] Name: FADY TERRY Rep #: [id number] : 1945 Provider: Dr. Nolan Walter MD Age/Sex: 79/M Location: [facility] Status: Signed HPI HPI History of Present Illness Details: This is a 79-year-old gentleman that presents here today for a cardiovascular follow-up. In June 2019, he presented to the emergency room with a non-STEMI. He did undergo a diagnostic heart catheterization and was found to have single-vessel coronary disease of his mid LAD. This was stented. He also has a history of hypertension, hyperlipidemia, and paroxysmal atrial fibrillation. He denies chest, arm, jaw, or neck discomfort. He denies palpitations. He states mild, bilateral lower extremity edema that is unchanged from previous. He denies claudication. He states occasional shortness of breath with activity that he contributes to history of COPD. He denies shortness of breath at rest, orthopnea, or PND. He denies chronic cough. He denies significant, sudden weight gain. He denies lightheadedness, dizziness, near-syncope, or syncope. He denies blood in urine, blood in stool, or epistaxis. He denies fever with chills. He denies myalgia. He denies fatigue. His exercise level has remained stable. He tells me that his heart rate was going low and so he was asked to reduce his carvedilol to once a day. Intake Vital Signs 12/03/23 10:16 08/24/24 09:40 01/22/25 13:13 Height 6 ft 2 in 6 ft 2 in 6 ft 2 in Weight: 211 lb BMI 27.1 BP 148/77 H Blood Pressure Location Lt brachial Position Sitting Respiration 16 Pulse 53 L Pulse Source Monitor Intake Visit Reasons: 1 Y [employer] Required: No Accompanied by: Self Is patient in pain?: No Allergies No Known Allergies Allergy (Verified 01/22/25 13:15) Medications ???Medication ???Instructions ???Recorded ???Confirmed ???Type losartan 50 mg tablet 100 mg PO DAILY 02/03/20 01/22/25 History tadalafil 20 mg tablet 20 mg PO ONCE PRN 06/13/21 5 History loperamide 2 mg-simethicone 125 mg 0.5 tab PO Q OTHER DAY PRN 02/1801/22/25 History tablet (Anti-Diarrheal (loperamide) - Anti-Gas) levothyroxine 100 mcg tablet 100 mcg PO DAILY 12/03/23 01/22/25 History apixaban 5 mg tablet (Eliquis) 5 mg PO BID #60 tabs 05/15/2401/06 Rx amiodarone 200 mg tablet 100 mg (1/2 x 200 mg) PO QDAY #45 07/31/24 01/22/25 Rx tabs amlodipine 10 mg tablet 10 mg PO QDAY 08/24/24 01/22/25 Hi story atorvastatin 80 mg tablet 80 mg PO QHS #90 tabs 10/02/24 Rx clopidogrel 75 mg tablet 75 mg PO QDAY #90 tabs 10/16/24 Rx Ejection fraction %: 65 Have you fallen in the past year?: No PFSH Medical History Dupuytren contracture of both hands Arthritis First degree atrioventricular block Bradycardia 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 (congestive heart failure) Paroxysmal atrial fibrillation Essential hypertension Hyperlipidemia NSTEMI (non-ST elevated myocardial infarction) (07/06/19) Atherosclerosis of coronary artery of [place] heart without angina pectoris Paroxysmal atrial fibrillation with RVR Surgical History History of bilateral inguinal hernia repair (2014) History of coronary artery stent placement (07/07/19) Family History Mother , of [place] in her 60's CAD (coronary artery disease) Myocardial infarction Brother Hypertension Social History Smoking Status: Former smoker how long ago did patient quit smoking: December 2018 alcohol intake: current alcohol intake frequency: 0-2 drinks per day Alcohol type: wine and hard liquor substance use type: does not use caffeine: Yes Type: coffee Number of servings: 1 ROS Const Const: Negative for fatigue, weakness, daytime sleepiness or difficulty sleeping ENT ENT: Negative for dizziness or Nosebleed/epistaxis Cardio Chest Pain: No Palpitations: No Edema: Bilateral (BLE trace at times ) Resp Respiratory: Negative for SOB with activity, SOB at rest, SOB orthopnea SOB lying down or Cough GI GI: Negative nausea, vomiting or heartburn Neuro Neuro: Negative for dizziness, lightheadedness, near syncope or weakness Endo Endo: Negative for fatigue Cardiology Exam Const Appearance: cooperative, healthy appearing, comfortable and no acute distress Nutritional Appearance: well nourished and overweight Orientation: alert, awake and or (more content not included)... Normal [facility] Anion gap in Serum or Plasma Ordered By: Bird Crump on 11-03-2024 Anion gap [Moles/Vol] 13 mmol/L 08-20 [facility] BUN/creatinine ratioOrdered By: Bird Crump on 11-03-2024 Urea nitrogen/Creatinine [Mass ratio] 15.5 mg/mg - [facility] Basic Metabolic Profile (BMP )on 11-03-2024 BUN/CRE 15.5 RATIO Normal 01-25 [facility] Comment on above: Order Comment: Order Date: 11/03/24 Order Info: 666-04 - BMP Order Info: 3 - TSH Order Info: 7 - T4F Performed By: #### L [id number], L506.0400, L500.2500 #### [facility] [address] [place], [address] Calcium [Mass/Vol] 9.9 mg/dL Normal 7.6-11.0 [facility] Comment on above: Order Comment: Order Date: 11/03/24 Order Info: 666-04 - BMP Order Info: 3 - TSH Order Info: 7 - T4F Performed By: #### L [id number], L506.0400, L500.2500 #### [facility] [address] [place], [address] Chloride [Moles/Vol] 102 mmol/L Normal 98-108 [facility] Comment on above: Order Comment: Order Date: 11/03/24 Order Info: 666-04 - BMP Order Info: 3015-3 - TSH Order Info: 3024-7 - T4F Performed By: #### L [id number], L506.0400, L500.2500 #### [facility] [address] [place], [address] CO2 [Moles/Vol] 24.5 mmol/L Normal 21.0-32.0 [facility] Comment on above: Order Comment: Order Date: 11/03/24 Order Info: 06 - BMP Order Info: 3015-3 - TSH Order Info: 3024-7 - T4F Performed By: #### L [id number], L506.0400, L500.2500 #### [facility] [address] [place], [address] Creatinine [Mass/Vol] 0.91 mg/dL Normal 0.70-1.20 [facility] Comment on above: Order Comment: Order Date: 11/03/24 Order Info: 666- - BMP Order Info: 3 - TSH Order Info: 3024-7 - T4F Performed By: #### L [id number], L506.0400, L500.2500 #### [facility] [address] [place], [address] GAP 13 Normal 5-15 [facility] Comment on above: Order Comment: Order Date: 11/03/24 Order Info: 666-04 - BMP Order Info: 3 - TSH Order Info: 3024-7 - T4F Performed By: #### L [id number], L506.0400, L500.2500 #### [facility] [address] [place], [address] GFR/1.73 sq M.predicted among non-blacks MDRD (S/P/Bld) [Vol rate/Area] 87 mL/min/{1.73_m2} Normal >60 [facility] Comment on above: Order Comment: Order Date: 11/03/24 Order Info: 06 - BMP Order Info: 3016-3 - TSH Order Info: 3024-7 - T4F Result Comment: mL/m in/1.73m2 CKD-EPI Creatinine Equation (2020) Performed By: #### L [id number], L506.0400, L500.2500 #### [facility] [address] [place], [address] Glucose [Mass/Vol] 104 mg/dL High 70-99 [facility] Comment on above: Order Comment: Order Date: 11/03/24 Order Info: 0667- - BMP Order Info: 3016-3 - TSH Order Info: 3024-7 - T4F Performed By: #### L [id number], L506.0400, L500.2500 #### [facility] [address] [place], [address] Potassium [Moles/Vol] 4.3 mmol/L Normal 3.3-5.1 [facility] Comment on above: Order Comment: Order Date: 11/03/24 Order Info: 06 - BMP Order Info: 3015-3 - TSH Order Info: 3024-7 - T4F Performed By: #### L [id number], L506.0400, L500.2500 #### [facility] [address] [place], [address] Sodium [Moles/Vol] 139 mmol/L Normal 133-145 [facility] Comment on above: Order Comment: Order Date: 11/03/24 Order Info: 06 - BMP Order Info: 3015-3 - TSH Order Info: 3024-7 - T4F Performed By: #### L [id number], L506.0400, L500.2500 #### [facility] [address] [place], [address] Urea nitrogen [Mass/Vol] 14 mg/dL Normal 4-19 [facility] Comment on above: Order Comment: Order Date: 11/03/24 Order Info: 0667 - BMP Order Info: 3016-3 - TSH Order Info: 3024-7 - T4F Performed By: #### L [id number], L506.0400, L500.2500 #### [facility] [address] [place], [address] Carbon dioxide, total [Moles /volume] in Central venous bloodOrdered By: Bird Crump on 11-03-2024 CO2 [Moles/Vol] 24.5 mmol/L 21.0-32.0 [facility] Chloride assayOrdered By: Guillermina Crump on 11-03-2024 Chloride [Moles/Vol] 102 mmol/L 98-108 [facility] Glomerular filtration rate ( GFR) estimation/1.73 sq m using serum, plasma, or whole bOrdered By: Bird Crump on 11-03-2024 GFR/1.73 sq M.predicted among non-blacks MDRD (S/P/Bld) [Vol rate/Area] 87 mL/min/{1.73_m2} >60 [facility] Comment on above: mL/min/1.73m2 CKD-EP I Creatinine Equation (2020) Potassium measurement (mass/ volume)Ordered By: Bird Crump on 11-03-2024 Potassium (Unsp spec) [Mass/Vol] 4.3 mmol/L 3.3-5.1 [facility] Serum creatinine measurement (mass/volume)Ordered By: Bird Crump on 11-03-2024 Creatinine [Mass/Vol] 0.91 mg/dL 0.70-1.20 [facility] Serum glucose measurement (m ass/volume)Ordered By: Bird Crump on 11-03-2024 Glucose [Mass/Vol] 104 mg/dL High 70-99 [facility] Serum or plasma calcium nate urement (mass/volume)Ordered By: Bird Crump on 11-03-2024 Calcium [Mass/Vol] 9.9 mg/dL 7.6-11.0 [facility] Serum or plasma urea nitroge n measurement (mass/volume)Ordered By: Bird Crump on 11-03-2024 Urea nitrogen [Mass/Vol] 14 mg/dL 4-19 [facility] Sodium levelOrdered By: Chadwick Crump on 11-03-2024 Sodium [Moles/Vol] 139 mmol/L 133-145 [facility] T4 Free Directon 11-03-2024 T4 FREE DIRECT 1.60 ng/dL High 0.76-1.46 [facility] Comment on above: Order Comment: Order Date: 11/03/24Order Info: 0667-1 - BMPOrder Info: 3016-3 - TSHOrder Info: 3024-7 - T4F Performed By: #### L 501.9520, L506.0400, L500.2500 ####[facility] [address] [place], [address] T4 freeOrdered By: Lobo Crump on 11-03-2024 Free T4 [Mass/Vol] 1.60 ng/dL High 0.76-1.46 [facility] TSH DL <= 0.005 mIU/L QnOrde red By: Bird Crump on 11-03-2024 TSH Qn 0.841 uIU/mL 0.300-4.200 [facility] Thyroid Stim Hormone (TSH)on 11-03-2024 TSH 0.841 uIU/mL Normal 0.300-4.200 [facility] Comment on above: Order Comment: Order Date: 11/03/24 Order Info: 0667-1 - BMP Order Info: 3016-3 - TSH Order Info: 3024-7 - T4F Performed By: #### L 501.9520, L506.0400, L500.2500 #### [facility] [address] [place], [address] Cardiology Visit Reporton Cardiology Visit Report [facility] [address] [place] [address] OFFICE VISIT Date of Service: 08/24/24 MR#: [id number] Acct: [id number] Name: FADY TERRY Rep #: [id number] : 1945 Provider: VEGA bartlett Age/Sex: 78/M Location: [facility] [place] Status: Signed HPI HPI History of Present Illness Details: This is a 78-year-old gentleman that presents here today for a cardiovascular follow-up. In June 2019, he presented to the emergency room with a non-STEMI. He did undergo a diagnostic heart catheterization and was found to have single-vessel coronary disease of his mid LAD. This was stented. He also has a history of hypertension, hyperlipidemia, and paroxysmal atrial fibrillation. He denies chest, arm, jaw, or neck discomfort. He denies palpitations. He states mild, bilateral lower extremity edema that is unchanged from previous. He denies claudication. He states occasional shortness of breath with activity that he contributes to history of COPD. He denies shortness of breath at rest, orthopnea, or PND. He denies chronic cough. He denies significant, sudden weight gain. He denies lightheadedness, dizziness, near-syncope, or syncope. He denies blood in urine, blood in stool, or epistaxis. He denies fever with chills. He denies myalgia. He denies fatigue. His exercise level has remained stable. Intake Vital Signs 02/24/24 08:55 08/24/24 09:40 08/24/24 09:48 Height 6 ft 2 in 6 ft 2 in Weight: 214 lb 210 lb BMI 27.4 26.9 BP 148/70 H 161/70 H Blood Pressure Location Lt brachial Lt brachial Position Sitting Sitting Respiration 18 18 Pulse 44 L 36 L 42 L Pulse Source NIBP NIBP Pulse Oximetry (%) 96 92 Oxygen Delivery Method room air room air Intake Visit Reasons: 6 [employer] Manager Required: No Is patient in pain?: No Allergies No Known Allergies Allergy (Verified 08/24/24 09:36) Medications ???Medication ???Instructions ???Recorded ???Confirmed ???Type losartan 50 mg tablet 100 mg PO DAILY 02/03/20 08/24/24 History tadalafil 20 mg tablet 20 mg PO ONCE PRN 06/13/21 5 History loperamide 2 mg-simethicone 125 mg 0.5 tab PO Q OTHER DAY PRN 02/1808/24/24 History tablet (Anti-Diarrheal (loperamide) - Anti-Gas) carvedilol 3.125 mg tablet 3.125 mg PO BID #180 tabs 09/05/23 08/24/24 Rx levothyroxine 100 mcg tablet 100 mcg PO DAILY 12/03/23 08/24/24 History apixaban 5 mg tablet (Eliquis) 5 mg PO BID #60 tabs 05/15/2408/06 Rx amiodarone 200 mg tablet 100 mg (1/2 x 200 mg) PO QDAY #45 07/31/24 08/24/24 Rx tabs amlodipine 10 mg tablet 10 mg PO QDAY 08/24/24 08/24/24 Hi story atorvastatin 80 mg tablet 80 mg PO QHS 08/24/24 08/24/24 His tory clopidogrel 75 mg tablet 75 mg PO QDAY #90 tabs 08/24/24 Rx furosemide 20 mg tablet 20 mg PO QDAY PRN 08/24/24 5 History Ejection fraction %: 65 Have you fallen in the past year?: No [facility] Medical History Dupuytren contracture of both hands Arthritis First degree atrioventricular block Bradycardia 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 (congestive heart failure) Paroxysmal atrial fibrillation Essential hypertension Hyperlipidemia NSTEMI (non-ST elevated myocardial infarction) (07/06/19) Atherosclerosis of coronary artery of [place] heart without angina pectoris Paroxysmal atrial fibrillation with RVR Surgical History History of bilateral inguinal hernia repair (2014) History of coronary artery stent placement (07/07/19) Family History Mother , of [place] in her 60's CAD (coronary artery disease) Myocardial infarction Brother Hypertension Social History Smoking Status: Former smoker how long ago did patient quit smoking: December 2018 alcohol intake: current alcohol intake frequency: 0-2 drinks per day Alcohol type: wine and hard liquor substance use type: does not use caffeine: Yes Type: coffee Number of servings: 1 ROS Const Const: Negative for fatigue or weakness Eyes Eyes: Negative for change in vision ENT ENT: Negative for dizziness or balance problems Cardio Chest Pain: No Palpitations: No Edema: Bilateral (intermittently) Resp Respiratory: Negative for SOB with activity, SOB at rest or SOB orthopnea SOB lying down GI GI: Negative nausea or heartburn Musc Musc: Negative for balance problems Neuro Neuro: Negative for dizziness, lightheadedness, near syncope, syncope or weakness Endo Endo: Negative for fatigue Cardiology Exam Const Appearance: cooperative, healthy appe (more content not included)... Normal [facility] Anion gap in Serum or Plasma Ordered By: Bird Crump on 07-30-2024 Anion gap [Moles/Vol] 13 mmol/L 5-15 [facility] BUN/creatinine ratioOrdered By: Bird Crump on 07-30-2024 Urea nitrogen/Creatinine [Mass ratio] 20.1 mg/mg High 10-20 [facility] Bilirubin, totalOrdered By: Bird Crump on 07-30-2024 Bilirubin [Mass/Vol] 1.04 mg/dL Normal 0.00-1.30 [facility] Comment on above: Order Comment: Order Date: 07/30/24 Order Info: 0786-1 - CMP Order Info: [id number] - LIPID Order Info: 3016-3 - TSH Order Info: 3024-7 - T4F Performed By: #### L 506.0400, L501.9520, L500.4100, L500.4050, L100.0500 #### [facility] [address] [place], [place], [id number] CBC-Complete Blood Cnt No Di ffon 07-30-2024 Erythrocyte distribution width (RBC) [Ratio] 13.8 % Normal 11.6-14.6 [facility] Comment on above: Order Comment: Order Date: 07/30/24 Order Info: [id number] - CBC Performed By: #### L 506.0400, L501.9520, L500.4100, L500.4050, L100.0500 #### [facility] [address] [place], [address] Hematocrit (Bld) [Volume fraction] 43.8 % Normal 40-54 [facility] Comment on above: Order Comment: Order Date: 07/30/24 Order Info: [id number] - CBC Performed By: #### L 506.0400, L501.9520, L500.4100, L500.4050, L100.0500 #### [facility] [address] [place], [address] Hemoglobin (Bld) [Mass/Vol] 14.4 g/dL Normal 13.0-16.5 [facility] Comment on above: Order Comment: Order Date: 07/30/24 Order Info: [id number] - CBC Performed By: #### L 506.0400, L501.9520, L500.4100, L500.4050, L100.0500 #### [facility] [address] [place], [address] MCH (RBC) [Entitic mass] 32.5 pg High 27.0-32.0 [facility] Comment on above: Order Comment: Order Date: 07/30/24 Order Info: [id number] - CBC Performed By: #### L 506.0400, L501.9520, L500.4100, L500.4050, L100.0500 #### [facility] [address] [place], [address] MCHC (RBC) [Mass/Vol] 32.9 g/dL Normal 32-36 [facility] Comment on above: Order Comment: Order Date: 07/30/24 Order Info: [id number] - CBC Performed By: #### L 506.0400, L501.9520, L500.4100, L500.4050, L100.0500 #### [facility] [address] [place], [address] MCV (RBC) [Entitic vol] 98.9 fL High 80-94 [facility] Comment on above: Order Comment: Order Date: 07/30/24 Order Info: [id number] - CBC Performed By: #### L 506.0400, L501.9520, L500.4100, L500.4050, L100.0500 #### [facility] [address] [place], [address] Platelet mean volume (Bld) [Entitic vol] 10.7 fL Normal 6.2-12.0 [facility] Comment on above: Order Comment: Order Date: 07/30/24 Order Info: [id number] - CBC Performed By: #### L 506.0400, L501.9520, L500.4100, L500.4050, L100.0500 #### [facility] [address] [place], [address] Platelets (Bld) [#/Vol] 192 10*3/uL Normal 150-450 [facility] Comment on above: Order Comment: Order Date: 07/30/24 Order Info: [id number] - CBC Performed By: #### L 506.0400, L501.9520, L500.4100, L500.4050, L100.0500 #### [facility] [address] [place], [address] RBC (Bld) [#/Vol] 4.43 10*6/uL Low 4.6-6.2 [facility] Comment on above: Order Comment: Order Date: 07/30/24 Order Info: [id number] - CBC Performed By: #### L 506.0400, L501.9520, L500.4100, L500.4050, L100.0500 #### [facility] [address] [place], [address] RDW SD 50.6 fl High 35.1-43.9 [facility] Comment on above: Order Comment: Order Date: 07/30/24 Order Info: [id number] - CBC Performed By: #### L 506.0400, L501.9520, L500.4100, L500.4050, L100.0500 #### [facility] [address] [place], [address] WBC (Bld) [#/Vol] 8.5 10*3/uL Normal 4.4-11.0 [facility] Comment on above: Order Comment: Order Date: 07/30/24 Order Info: [id number] - CBC Performed By: #### L 506.0400, L501.9520, L500.4100, L500.4050, L100.0500 #### [facility] [address] [place], [place], [id number] Calculated very low density lipoprotein (VLDL) cholesterol measurementOrdered By: Bird Crump on 07-30-2024 Calculated very low density lipoprotein (VLDL) cholesterol measurement 11 mg/dL 5-40 [facility] Carbon dioxide, total [Moles /volume] in Central venous bloodOrdered By: Bird Crump on 07-30-2024 CO2 [Moles/Vol] 23.4 mmol/L Normal 21.0-32.0 [facility] Comment on above: Order Comment: Order Date: 07/30/24 Order Info: 07 - CMP Order Info: - LIPID Order Info: 3 - TSH Order Info: 7 - T4F Performed By: #### L 506.0400, L501.9520, L500.4100, L500.4050, L100.0500 #### [facility] [address] [place], [place], [id number] Chloride assayOrdered By: Guillermina Crump on 07-30-2024 Chloride [Moles/Vol] 103 mmol/L Normal 98-108 [facility] Comment on above: Order Comment: Order Date: 07/30/24 Order Info: 785-04 - CMP Order Info: [id number] - LIPID Order Info: [id number] - TSH Order Info: 3024-7 - T4F Performed By: #### L 506.0400, L501.9520, L500.4100, L500.4050, L100.0500 #### [facility] [address] [place], [address] Comprehensive Metabolic Prof ilon 07-30-2024 ALK PHOS 94 U/L Normal 40-129 [facility] Comment on above: Order Comment: Order Date: 07/30/24 Order Info: 0786 - CMP Order Info: [id number] - LIPID Order Info: [id number] - TSH Order Info: 30247 - T4F Performed By: #### L 506.0400, L501.9520, L500.4100, L500.4050, L100.0500 #### [facility] [address] [place], [address] BUN/CRE 20.1 RATIO High 10-20 [facility] Comment on above: Order Comment: Order Date: 07/30/24 Order Info: 0786-1 - CMP Order Info: [id number] - LIPID Order Info: 3016-3 - TSH Order Info: 3024-7 - T4F Performed By: #### L 506.0400, L501.9520, L500.4100, L500.4050, L100.0500 #### [facility] [address] [place], [address] GAP 13 Normal 5-15 [facility] Comment on above: Order Comment: Order Date: 07/30/24 Order Info: 0786-1 - CMP Order Info: [id number] - LIPID Order Info: 3013 - TSH Order Info: 3024-7 - T4F Performed By: #### L 506.0400, L501.9520, L500.4100, L500.4050, L100.0500 #### [facility] [address] [place], [address] Potassium [Moles/Vol] 4.5 mmol/L Normal 3.3-5.1 [facility] Comment on above: Order Comment: Order Date: 07/30/24 Order Info: 0786-1 - CMP Order Info: 13118-6 - LIPID Order Info: 3016-3 - TSH Order Info: 3024-7 - T4F Performed By: #### L 506.0400, L501.9520, L500.4100, L500.4050, L100.0500 #### [facility] [address] [place], [address] T PROT 7.5 g/dL Normal 5.9-8.4 [facility] Comment on above: Order Comment: Order Date: 07/30/24 Order Info: 0786-1 - CMP Order Info: - LIPID Order Info: 3015-06 - TSH Order Info: 3023-10 - T4F Performed By: #### L 506.0400, L501.9520, L500.4100, L500.4050, L100.0500 #### [facility] [address] [place], [place], [address] Comprehensive Metabolic Prof ilOrdered By: Bird Crump on 07-30-2024 AST [Catalytic activity/Vol] 24 U/L Normal <=37 [facility] Comment on above: Order Comment: Order Date: 07/30/24 Order Info: 785-04 - CMP Order Info: - LIPID Order Info: 3015-06 - TSH Order Info: 3023-10 - T4F Performed By: #### L 506.0400, L501.9520, L500.4100, L500.4050, L100.0500 #### [facility] [address] [place], [place], [address] Erythrocyte distribution wid th ratioOrdered By: Bird Crump on 07-30-2024 Erythrocyte distribution width (RBC) [Ratio] 13.8 % 11.6-14.6 [facility] Erythrocyte distribution wid th standard deviationOrdered By: Bird Crump on 07-30-2024 Erythrocyte distribution width (RBC) [Ratio] 50.6 fl High 35.1-43.9 [facility] Glomerular filtration rate ( GFR) estimation/1.73 sq m using serum, plasma, or whole bOrdered By: Bird Crump on 07-30-2024 GFR/1.73 sq M.predicted among non-blacks MDRD (S/P/Bld) [Vol rate/Area] 61 mL/min/{1.73_m2} Normal >60 [facility] Comment on above: mL/min/1.73m2 CKD-EP I Creatinine Equation (2020) Order Comment: Order Date: 07/30/24 Order Info: 785-04 - CMP Order Info: - LIPID Order Info: 3015-06 - TSH Order Info: 3024-7 - T4F Result Comment: mL/m in/1.73m2 CKD-EPI Creatinine Equation (2020) Performed By: #### L 506.0400, L501.9520, L500.4100, L500.4050, L100.0500 #### [facility] [address] [place], [place], [address] Hematocrit Auto (Bld) [Volum e fraction]Ordered By: Bird Crump on 07-30-2024 Hematocrit (Bld) [Volume fraction] 43.8 % 40-54 [facility] Hemoglobin measurementOrdere d By: Bird Crump on 07-30-2024 Hemoglobin (Bld) [Mass/Vol] 14.4 g/dL 13.0-16.5 [facility] LDL calc ser/plasOrdered By: Bird Crump on 07-30-2024 Cholesterol in LDL [Mass/Vol] 37 mg/dL [facility] Comment on above: Ilgyxrpdyj=625-851 m g/dL & Higher Jzaa=931 mg/dL or greater Lipid Profileon 07-30-2024 CHOL:HDL 1.76 Normal [facility] Comment on above: Order Comment: Order Date: 07/30/24 Order Info: 0786-1 - CMP Order Info: 81622-1 - LIPID Order Info: 3015-06 - TSH Order Info: 3023-10 T4F Performed By: #### L 506.0400, L501.9520, L500.4100, L500.4050, L100.0500 #### [facility] [address] [place], [place], [id number] Cholesterol [Mass/Vol] 111 mg/dL Normal <=200 [facility] Comment on above: Order Comment: Order Date: 07/30/24 Order Info: 0786-1 - CMP Order Info: [id number] - LIPID Order Info: 3 - TSH Order Info: 3023-10 - T4F Result Comment: Chol esterol level, Desirable <200 mg/dL Borderline high cholesterol 200-239 mg/dL High cholesterol >=240 mg/dL Recommendations of the NCEP Adult Treatment Panel for the following risk-cutoff thresholds for the [place] population. Performed By: #### L 506.0400, L501.9520, L500.4100, L500.4050, L100.0500 #### [facility] [address] [place], [address] Cholesterol in HDL [Mass/Vol] 63 mg/dL Normal [facility] Comment on above: Order Comment: Order Date: 07/30/24 Order Info: 07- - CMP Order Info: - LIPID Order Info: 3015-06 - TSH Order Info: 3023-10 T4F Result Comment: Swetha onal Cholesterol Education Program (NCEP) guidelines: <40 mg/dL: Low HDL-cholesterol (major risk factor for CHD) >= 60 mg/dL: High HDL-cholesterol (negative risk factor for CHD) HDL-cholesterol is affected by a number of factors, e.g. smoking, exercise, hormones, sex and age. Performed By: #### L 506.0400, L501.9520, L500.4100, L500.4050, L100.0500 #### [facility] [address] [place], [address] Cholesterol in LDL [Mass/Vol] 37 mg/dL Normal [facility] Comment on above: Order Comment: Order Date: 07/30/24 Order Info: 07 - CMP Order Info: - LIPID Order Info: 3015-06 - TSH Order Info: 3023-10 T4F Result Comment: Bord pejvgp=750-681 mg/dL Higher Dink=496 mg/dL or greater Performed By: #### L 506.0400, L501.9520, L500.4100, L500.4050, L100.0500 #### [facility] [address] [place], [address] Cholesterol in VLDL [Mass/Vol] 11 mg/dL Normal 5-40 [facility] Comment on above: Order Comment: Order Date: 07/30/24 Order Info: 07 - CMP Order Info: - LIPID Order Info: 3015-06 - TSH Order Info: 3024-7 - T4F Performed By: #### L 506.0400, L501.9520, L500.4100, L500.4050, L100.0500 #### [facility] [address] [place], [place], [address] Triglyceride [Mass/Vol] 55 mg/dL Normal [facility] Comment on above: Order Comment: Order Date: 07/30/24 Order Info: 0786-1 - CMP Order Info: [id number] - LIPID Order Info: 3016-3 - TSH Order Info: 3024-7 - T4F Result Comment: The drugs N-Acetylcysteine and Metamizole may falsely depress this assay. Normal range: <150 mg/dL Borderline High: 150-199 mg/dL High: 200-499 mg/dL Very High: >500 mg/dL Performed By: #### L 506.0400, L501.9520, L500.4100, L500.4050, L100.0500 #### [facility] [address] [place], [place], [id number] MCV (mean corpuscular volume ) determinationOrdered By: Bird Crump on 07-30-2024 MCV (RBC) [Entitic vol] 98.9 fL High 80-94 [facility] Mean corpuscular hemoglobin (MCH) determinationOrdered By: Bird Crump on 07-30-2024 MCH (RBC) [Entitic mass] 32.5 pg High 27.0-32.0 [facility] Mean corpuscular hemoglobin concentration (MCHC) determinationOrdered By: Bird Crump on 07-30-2024 MCHC (RBC) [Mass/Vol] 32.9 g/dL 32-36 [facility] Mean platelet volume determi nationOrdered By: Bird Crump on 07-30-2024 Platelet mean volume (Bld) [Entitic vol] 10.7 fL 6.2-12.0 [facility] Platelet countOrdered By: Guillermina Crump on 07-30-2024 Platelets (Bld) [#/Vol] 192 10*3/uL 150-450 [facility] Potassium measurement (mass/ volume)Ordered By: Bird Crump on 07-30-2024 Potassium (Unsp spec) [Mass/Vol] 4.5 mmol/L 3.3-5.1 [facility] RBC Auto (Bld) [#/Vol]Ordere d By: Bird Crump on 07-30-2024 RBC (Bld) [#/Vol] 4.43 10*6/uL Low 4.6-6.2 [facility] Screening total cholesterol/ high density lipoprotein (HDL) cholesterol ratioOrdered By: Bird Crump on 07-30-2024 Cholesterol.total/Choles terol in HDL [Mass ratio] 1.76 {ratio} [facility] Serum creatinine measurement (mass/volume)Ordered By: Bird Crump on 07-30-2024 Creatinine [Mass/Vol] 1.22 mg/dL High 0.70-1.20 [facility] Comment on above: Order Comment: Order Date: 07/30/24 Order Info: 0786-1 - CMP Order Info: 82420-8 - LIPID Order Info: 3 - TSH Order Info: 7 - T4F Performed By: #### L 506.0400, L501.9520, L500.4100, L500.4050, L100.0500 #### [facility] [address] [place], [place], [id number] Serum globulin measurementOr dered By: Bird Crump on 07-30-2024 Globulin (S) [Mass/Vol] 3.2 g/dL Normal 2.2-4.2 [facility] Comment on above: Order Comment: Order Date: 07/30/24 Order Info: 0786-1 - CMP Order Info: [id number] - LIPID Order Info: 3016-3 - TSH Order Info: 3024-7 - T4F Performed By: #### L 506.0400, L501.9520, L500.4100, L500.4050, L100.0500 #### [facility] [address] [place], [address] Serum glucose measurement (m ass/volume)Ordered By: Bird Crump on 07-30-2024 Glucose [Mass/Vol] 110 mg/dL High 70-99 [facility] Comment on above: Order Comment: Order Date: 07/30/24 Order Info: 07-1 - CMP Order Info: [id number] - LIPID Order Info: 3 - TSH Order Info: 3023-10 - T4F Performed By: #### L 506.0400, L501.9520, L500.4100, L500.4050, L100.0500 #### [facility] [address] [place], [address] Serum or plasma alanine palmer otransferase (ALT) measurementOrdered By: Bird Crump on 07-30-2024 ALT [Catalytic activity/Vol] 17 U/L Normal <=46 [facility] Comment on above: Order Comment: Order Date: 07/30/24 Order Info: 785-04 - CMP Order Info: - LIPID Order Info: 3 - TSH Order Info: 3023-10 - T4F Performed By: #### L 506.0400, L501.9520, L500.4100, L500.4050, L100.0500 #### [facility] [address] [place], [address] Serum or plasma albumin nate urement (mass/volume)Ordered By: Bird Crump on 07-30-2024 Albumin [Mass/Vol] 4.3 g/dL Normal 3.4-4.8 [facility] Comment on above: Order Comment: Order Date: 07/30/24 Order Info: 785-04 - CMP Order Info: - LIPID Order Info: 3 - TSH Order Info: 7 - T4F Performed By: #### L 506.0400, L501.9520, L500.4100, L500.4050, L100.0500 #### [facility] [address] [place], [address] Serum or plasma albumin/glob ulin mass ratioOrdered By: Bird Crump on 07-30-2024 Albumin/Globulin [Mass ratio] 1.3 {ratio} Normal 0.9-2.4 [facility] Comment on above: Order Comment: Order Date: 07/30/24 Order Info: 0786- - CMP Order Info: - LIPID Order Info: 3015-06 - TSH Order Info: 3023-10 - T4F Performed By: #### L 506.0400, L501.9520, L500.4100, L500.4050, L100.0500 #### [facility] [address] [place], [address] Serum or plasma alkaline keny sphatase measurementOrdered By: Bird Crump on 07-30-2024 ALP [Catalytic activity/Vol] 94 U/L 40-129 [facility] Serum or plasma calcium nate urement (mass/volume)Ordered By: Bird Crump on 07-30-2024 Calcium [Mass/Vol] 10.0 mg/dL Normal 7.6-11.0 [facility] Comment on above: Order Comment: Order Date: 07/30/24 Order Info: 785-04 - CMP Order Info: - LIPID Order Info: 3015-06 - TSH Order Info: 3023-10 - T4F Performed By: #### L 506.0400, L501.9520, L500.4100, L500.4050, L100.0500 #### [facility] [address] [place], [place], [address] Serum or plasma cholesterol in HDL measurement (mass/volume)Ordered By: Bird Crump on 07-30-2024 Cholesterol in HDL [Mass/Vol] 63 mg/dL >40 [facility] Comment on above: National Cholesterol Education Program (NCEP) guidelines:<40 mg/dL: Low HDL-cholesterol (major risk factor for CHD)>= 60 mg/dL: High HDL-cholesterol (negative risk factor for CHD)HDL-cholesterol is affected by a number of factors, e.g. smoking, exercise, hormones, sex and age. Serum or plasma cholesterol measurement (mass/volume)Ordered By: Bird Crump on 07-30-2024 Cholesterol [Mass/Vol] 111 mg/dL <201 [facility] Comment on above: Cholesterol level, D esirable <200 mg/dLBorderline high cholesterol 200-239 mg/dLHigh cholesterol >=240 mg/dLRecommendations of the NCEP Adult Treatment Panel for the following risk-cutoff thresholds for the [place] population. Serum or plasma urea nitroge n measurement (mass/volume)Ordered By: Bird Crump on 07-30-2024 Urea nitrogen [Mass/Vol] 25 mg/dL High 4-19 [facility] Comment on above: Order Comment: Order Date: 07/30/24 Order Info: 0786-1 - CMP Order Info: [id number] - LIPID Order Info: 3013 - TSH Order Info: 7 - T4F Performed By: #### L 506.0400, L501.9520, L500.4100, L500.4050, L100.0500 #### [facility] [address] [place], [address] Sodium levelOrdered By: Chadwick Crump on 07-30-2024 Sodium [Moles/Vol] 139 mmol/L Normal 133-145 [facility] Comment on above: Order Comment: Order Date: 07/30/24 Order Info: [id number] - CMP Order Info: [id number] - LIPID Order Info: 3 - TSH Order Info: 47 - T4F Performed By: #### L 506.0400, L501.9520, L500.4100, L500.4050, L100.0500 #### [facility] [address] [place], [address] T4 Free Directon 07-30-2024 T4 FREE DIRECT 2.10 ng/dL High 0.76-1.46 [facility] Comment on above: Order Comment: Order Date: 07/30/24 Order Info: [id number] - CMP Order Info: [id number] - LIPID Order Info: [id number] - TSH Order Info: 7 - T4F Performed By: #### L 506.0400, L501.9520, L500.4100, L500.4050, L100.0500 #### [facility] [address] [facility] [place], [place], [id number] T4 freeOrdered By: Lobo Crump on 07-30-2024 Free T4 [Mass/Vol] 2.10 ng/dL High 0.76-1.46 [facility] TSH DL <= 0.005 mIU/L QnOrde red By: Bird Crump on 07-30-2024 TSH Qn 0.222 uIU/mL Low 0.300-4.200 [facility] Thyroid Stim Hormone (TSH)on 07-30-2024 TSH 0.222 uIU/mL Low 0.300-4.200 [facility] Comment on above: Order Comment: Order Date: 07/30/24 Order Info: [id number] - CMP Order Info: [id number] - LIPID Order Info: [id number] - TSH Order Info: 7 - T4F Performed By: #### L 506.0400, L501.9520, L500.4100, L500.4050, L100.0500 #### [facility] [address] [facility]. [place], [place], [id number] Total proteinOrdered By: Flip Crump on 07-30-2024 Protein [Mass/Vol] 7.5 g/dL 5.9-8.4 [facility] Triglycerides measurementOrd ered By: Bird Crump on 07-30-2024 Triglyceride [Mass/Vol] 55 mg/dL <199 [facility] Comment on above: The drugs N-Acetylcy steine and Metamizole may falsely depress this assay. Normal range: <150 mg/dLBorderline High: 150-199 mg/dLHigh: 200-499 mg/dLVery High: >500 mg/dL White blood cell (WBC) count Ordered By: Bird Crump on 07-30-2024 WBC (Bld) [#/Vol] 8.5 10*3/uL 4.4-11.0 [facility] Cardiology Visit Reporton Cardiology Visit Report [facility] [address] [place] [address] OFFICE VISIT Date of Service: 02/24/24 MR#: [id number] Acct: [id number] Name: FADY TERRY VITALY Rep #: [id number] : 1945 Provider: VEGA bartlett Age/Sex: 78/M Location: [facility] Status: Signed HPI HPI History of Present Illness Details: This is a 78-year-old gentleman that presents here today for a cardiovascular follow-up. In June 2019, he presented to the emergency room with a non-STEMI. He did undergo a diagnostic heart catheterization and was found to have single-vessel coronary disease of his mid LAD. This was stented. He also has a history of hypertension, hyperlipidemia, and paroxysmal atrial fibrillation. He denies chest, arm, jaw, or neck discomfort. He denies palpitations. He states mild, bilateral lower extremity edema that is unchanged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 9.5 mg/dL 8.5-10.1 [facility] Serum or plasma creatinine m easurement (mass/volume)Ordered By: Dr. Crump on 07-16-2022 Creatinine [Mass/Vol] 1.20 mg/dL 0.70-1.30 [facility] Comment on above: The validity of the calculated GFR & GFRAA in patients over 70 years has not been determined. Clinical correlation is essential. Serum or plasma hepatitis B virus surface antigen detection by immunoassayOrdered By: Dr. Crump on 07-16-2022 HBV surface Ag IA Ql Negative Negative [facility] Serum or plasma urea nitroge n measurement (mass/volume)Ordered By: Dr. Crump on 07-16-2022 Urea nitrogen [Mass/Vol] 25 mg/dL 7-18 [facility] Thin prep Papanicolaou smear with manual screeningOrdered By: Dr. Crump on 07-16-2022 Thin prep Papanicolaou smear with manual screening 3 5-15 [facility] Basophil percentageOrdered B y: Dr. Crump on 05-14-2022 Bilirubin [Mass/Vol] 1.10 mg/dL 0.20-1.00 [facility] Comment on above: For patients on eltr ombopag therapy, use of Dimension [place] TBIL is not recommended. Chloride [Moles/Vol] 104 mmol/L 98-107 [facility] Cholesterol [Mass/Vol] 126 mg/dL <200 [facility] Comment on above: <200 mg/dL Desirable 200-240 mg/dL Borderline >240 mg/dL High Risk Glucose [Mass/Vol] 117 mg/dL 74-106 [facility] Comment on above: Fasting Glucose resu lt from 100 to 125 mg/dL suggests IMPAIRED HOMEOSTASIS per A.D.A. criteria. Potassium [Moles/Vol] 4.1 mmol/L 3.5-5.1 [facility] Protein [Mass/Vol] 7.8 g/dL 6.4-8.2 [facility] Sodium [Moles/Vol] 138 mmol/L 136-145 [facility] Triglyceride [Mass/Vol] 50 mg/dL <199 [facility] Comment on above: The drugs N-Acetylcy steine and Metamizole may falsely depress this assay.Serum Triglycerides Reference Interval Normal <150 mg/dL Borderline high 150 - 199 mg/dL High 200 - 499 mg/dL Very High > or = 500 mg/dL WBC (Bld) [#/Vol] 6.9 10*3/uL 4.4-11.0 [facility] Blood erythrocytes count (nu mber/volume)Ordered By: Dr. Crump on 05-14-2022 RBC (Bld) [#/Vol] 4.56 10*6/uL 4.6-6.2 [facility] Blood hemoglobin measurement (mass/volume)Ordered By: Dr. Crump on 05-14-2022 Hemoglobin (Bld) [Mass/Vol] 15.0 g/dL 13.0-16.5 [facility] Blood platelet mean volumeOr dered By: Dr. Crump on 05-14-2022 Platelet mean volume (Bld) [Entitic vol] 10.2 fL 6.2-12.0 [facility] Determination of erythrocyte mean corpuscular volume (MCV)Ordered By: Dr. Crump on 05-14-2022 MCV (RBC) [Entitic vol] 97.8 fL 80-94 [facility] Hematocrit Auto (Bld) [Volum e fraction]Ordered By: Dr. Crump on 05-14-2022 Hematocrit (Bld) [Volume fraction] 44.6 % 40-54 [facility] - Chemistry and C hemistry - challengeOrdered By: Dr. Crump on 05-14-2022 ALP [Catalytic activity/Vol] 80 U/L 45-117 [facility] ALT [Catalytic activity/Vol] 53 U/L 16-61 [facility] CO2 [Moles/Vol] 27.0 mmol/L 21.0-32.0 [facility] Globulin (S) [Mass/Vol] 3.9 g/dL 2.2-4.2 [facility] Natriuretic peptide B (Bld) [Mass/Vol] 193.1 pg/mL 0-100 [facility] Urea nitrogen/Creatinine [Mass ratio] 16.2 mg/mg 10-20 [facility] - Hematology and Cell countsOrdered By: Dr. Crump on 05-14-2022 Erythrocyte distribution width (RBC) [Entitic vol] 51.8 fL 35.1-43.9 [facility] Erythrocyte distribution width (RBC) [Ratio] 14.2 % 11.6-14.6 [facility] MCH (RBC) [Entitic mass] 32.9 pg 27.0-32.0 [facility] MCHC Auto (RBC) [Mass/Vol]Or dered By: Dr. Crump on 05-14-2022 MCHC (RBC) [Mass/Vol] 33.6 g/dL 32-36 [facility] No Panel InformationOrdered By: Dr. Crump on 05-14-2022 Estimated GFR (MDRD) Amer 78 mL/min >60 [facility] Comment on above: GFR Calc Estimated GFR (MDRD) Non-Af Amer 65 mL/min >60 [facility] Comment on above: Non- GFR Calc Platelets bldOrdered By: Dr. Crump on 05-14-2022 Platelets (Bld) [#/Vol] 200 10*3/uL 150-450 [facility] Serum or plasma albumin nate urement (mass/volume)Ordered By: Dr. Crump on 05-14-2022 Albumin [Mass/Vol] 3.9 g/dL 3.2-5.0 [facility] Serum or plasma albumin/glob ulin mass ratioOrdered By: Dr. Crump on 05-14-2022 Albumin/Globulin [Mass ratio] 1.0 {ratio} 0.9-2.4 [facility] Serum or plasma calcium nate urement (mass/volume)Ordered By: Dr. Crump on 05-14-2022 Calcium [Mass/Vol] 9.6 mg/dL 8.5-10.1 [facility] Serum or plasma cholesterol in HDL measurement (mass/volume)Ordered By: Dr. Crump on 05-14-2022 Cholesterol in HDL [Mass/Vol] 90 mg/dL >40 [facility] Comment on above: The drugs N-Acetylcy steine and Metamizole may falsely depress this assay. Reference Range HDL <40 mg/dL Low HDL Cholesterol HDL >or= 60 mg/dL High HDL Cholesterol Serum or plasma cholesterol in VLDL measurement (mass/volume)Ordered By: Dr. Crump on 05-14-2022 Cholesterol in VLDL [Mass/Vol] 10 mg/dL 5-40 [facility] Serum or plasma creatinine m easurement (mass/volume)Ordered By: Dr. Crump on 05-14-2022 Creatinine [Mass/Vol] 1.17 mg/dL 0.70-1.30 [facility] Comment on above: The validity of the calculated GFR & GFRAA in patients over 70 years has not been determined. Clinical correlation is essential. Serum or plasma low density lipoprotein (LDL) cholesterol measurement (mass/volume)Ordered By: Dr. Crump on 05-14-2022 Cholesterol in LDL [Mass/Vol] 26 mg/dL 0-130 [facility] Serum or plasma urea nitroge n measurement (mass/volume)Ordered By: Dr. Crump on 05-14-2022 Urea nitrogen [Mass/Vol] 19 mg/dL 7-18 [facility] Thin prep Papanicolaou smear with manual screeningOrdered By: Dr. Crump on 05-14-2022 Thin prep Papanicolaou smear with manual screening 54 U/L 15-37 [facility] Thin prep Papanicolaou smear with manual screening 7 5-15 [facility] Basophil percentageon 2021 Chloride [Moles/Vol] 110 mmol/L 98-107 [facility] Work Phone: Cholesterol [Mass/Vol] 111 mg/dL <200 [facility] Work Phone: Comment on above: <200 mg/dL Desirable 200-240 mg/dL Borderline >240 mg/dL High Risk Glucose [Mass/Vol] 104 mg/dL 74-106 [facility] Work Phone: Comment on above: Fasting Glucose resu lt from 100 to 125 mg/dL suggests IMPAIRED HOMEOSTASIS per A.D.A. criteria. Potassium [Moles/Vol] 3.9 mmol/L 3.5-5.1 [facility] Work Phone: Comment on above: Slight Hemolysis, Re sult may be falsely increased. Sodium [Moles/Vol] 140 mmol/L 136-145 [facility] Work Phone: Triglyceride [Mass/Vol] 51 mg/dL [facility] Work Phone: Comment on above: The drugs N-Acetylcy steine and Metamizole may falsely depress this assay.Serum Triglycerides Reference Interval Normal <150 mg/dL Borderline high 150 - 199 mg/dL High 200 - 499 mg/dL Very High > or = 500 mg/dL WBC (Bld) [#/Vol] 6.1 10*3/uL 4.4-11.0 [facility] Work Phone: Blood erythrocytes count (nu mber/volume)on 07-05-2021 RBC (Bld) [#/Vol] 4.43 10*6/uL 4.6-6.2 [facility] Work Phone: Blood hemoglobin measurement (mass/volume)on 07-05-2021 Hemoglobin (Bld) [Mass/Vol] 14.3 g/dL 13.0-16.5 [facility] Work Phone: Blood platelet mean volumeon 07-05-2021 Platelet mean volume (Bld) [Entitic vol] 10.5 fL 6.2-12.0 [facility] Work Phone: Determination of erythrocyte mean corpuscular volume (MCV)on 07-05-2021 MCV (RBC) [Entitic vol] 97.7 fL 80-94 [facility] Work Phone: Hematocrit Auto (Bld) [Volum e fraction]on 07-05-2021 Hematocrit (Bld) [Volume fraction] 43.3 % 40-54 [facility] Work Phone: Laboratory - Chemistry and C hemistry - challengeon 07-05-2021 CO2 [Moles/Vol] 23.0 mmol/L 21.0-32.0 [facility] Work Phone: Natriuretic peptide B (Bld) [Mass/Vol] 123.7 pg/mL 0-100 [facility] Work Phone: Urea nitrogen/Creatinine [Mass ratio] 23.0 mg/mg 10-20 [facility] Work Phone: Laboratory - Hematology and Cell countson 07-05-2021 Erythrocyte distribution width (RBC) [Entitic vol] 47.9 fL 35.1-43.9 [facility] Work Phone: Erythrocyte distribution width (RBC) [Ratio] 13.3 % 11.6-14.6 [facility] Work Phone: MCH (RBC) [Entitic mass] 32.3 pg 27.0-32.0 [facility] Work Phone: MCHC Auto (RBC) [Mass/Vol]on 07-05-2021 MCHC (RBC) [Mass/Vol] 33.0 g/dL 32-36 [facility] Work Phone: No Panel Informationon 07-05 Estimated GFR (MDRD) Amer 94 mL/min >60 [facility] Work Phone: Comment on above: GFR Calc Estimated GFR (MDRD) Non-Af Amer 78 mL/min >60 [facility] Work Phone: Comment on above: Non- GFR Calc Prostate Specific Antigen Screen 1.19 ng/mL 0.00-4.00 [facility] Work Phone: Comment on above: This test was perfor med using the TPSA assay method [facility] the[facility] chemistry system. Values obtained with differentassay methods cannot be used interchangably.When changing PSA assays in the course of monitoring apatient, additional sequential testing should be carriedout to confirm baseline values. Platelets bldon 07-05-2021 Platelets (Bld) [#/Vol] 196 10*3/uL 150-450 [facility] Work Phone: Serum or plasma calcium nate urement (mass/volume)on 07-05-2021 Calcium [Mass/Vol] 9.2 mg/dL 8.5-10.1 [facility] Work Phone: Serum or plasma cholesterol in HDL measurement (mass/volume)on 07-05-2021 Cholesterol in HDL [Mass/Vol] 66 mg/dL [facility] Work Phone: Comment on above: The drugs N-Acetylcy steine and Metamizole may falsely depress this assay. Reference Range HDL <40 mg/dL Low HDL Cholesterol HDL >or= 60 mg/dL High HDL Cholesterol Serum or plasma cholesterol in VLDL measurement (mass/volume)on 07-05-2021 Cholesterol in VLDL [Mass/Vol] 10 mg/dL 5-40 [facility] Work Phone: Serum or plasma creatinine m easurement (mass/volume)on 07-05-2021 Creatinine [Mass/Vol] 1.00 mg/dL 0.70-1.30 [facility] Work Phone: Comment on above: The validity of the calculated GFR & GFRAA in patients over 70 years has not been determined. Clinical correlation is essential. Serum or plasma low density lipoprotein (LDL) cholesterol measurement (mass/volume)on 07-05-2021 Cholesterol in LDL [Mass/Vol] 35 mg/dL 0-130 [facility] Work Phone: Serum or plasma urea nitroge n measurement (mass/volume)on 07-05-2021 Urea nitrogen [Mass/Vol] 23 mg/dL 7-18 [facility] Work Phone: Thin prep Papanicolaou smear with manual screeningon 07-05-2021 Thin prep Papanicolaou smear with manual screening 7 5-15 [facility] Work Phone: Vital Signs Date Time Vital Sign Value Performing Clinician Faci lity 01-22-2025 13:13-0400 Body height 187.[address] Bird Crump MD Work Phone: [facility] 01-22-2025 13:13-0400 Body mass index (BMI) [Ratio] 27.1 kg/m2 Dr. Bird Crump MD Work Phone: [facility] 01-22-2025 13:13-0400 Body weight 95.[address] Bird Crump MD Work Phone: [facility] 01-22-2025 13:13-0400 Diastolic blood pressure 77 mm[Hg] Dr. Bird Crump MD Work Phone: [facility] 01-22-2025 13:13-0400 Heart rate 53 /min Dr. Bird Crump MD Work Phone: 5(144)[phone] [place] [address] 01-22-2025 13:13-0400 Respiratory rate 16 /min Dr. Bird Crump MD Work Phone: 3(737)640-940907 [place] [address] 01-22-2025 13:13-0400 Systolic blood pressure 148 mm[Hg] Dr. Bird Crump MD Work Phone: 0(905)951-339407 [place] [address] 08-24-2024 09:48-0400 Heart rate 42 /min Dr. Bird Crump MD Work Phone: 5([phone])[phone] [place] [address] 08-24-2024 09:48-0400 SaO2% (BldA) [Mass fraction] 92 % Dr. Bird Crump MD Work Phone: 0(858)236-867207 [place] [address] 08-24-2024 09:40-0400 Body height 187.[address] Bird Crump MD Work Phone: 3(035)364-609307 [place] [address] 08-24-2024 09:40-0400 Body mass index (BMI) [Ratio] 26.9 kg/m2 Dr. Bird Crump MD Work Phone: 1(841)241-003449 [place] [address] 08-24-2024 09:40-0400 Body weight 95.[address] Bird Crump MD Work Phone: 8(594)[phone] [place] [address] 08-24-2024 09:40-0400 Diastolic blood pressure 70 mm[Hg] Dr. Bird Crump MD Work Phone: 4(070)143-482349 [place] [address] 08-24-2024 09:40-0400 Respiratory rate 18 /min Dr. Bird Crump MD Work Phone: 3(024)118-124649 [place] [address] 08-24-2024 09:40-0400 Systolic blood pressure 161 mm[Hg] Dr. Bird Crump MD Work Phone: [facility] 05-13-2023 10:28-0500 Body height 187.[address] Ac fuentes Work Phone: [facility] 05-13-2023 10:28-0500 Body mass index (BMI) [Ratio] 27.3 kg/m2 Dr. Ac Crump Work Phone: [facility] 05-13-2023 10:28-0500 Body weight 96.[address] Ac fuentes Work Phone: [facility] 05-13-2023 10:28-0500 Diastolic blood pressure 82 mm[Hg] Dr. Ac Crump Work Phone: 3(000)725-838649 [place] [address] 05-13-2023 10:28-0500 Heart rate 56 /min Dr. Ac fuentes Work Phone: [facility] 05-13-2023 10:28-0500 Respiratory rate 14 /min Dr. Ac fuentes Work Phone: [facility] 05-13-2023 10:28-0500 Systolic blood pressure 171 mm[Hg] Dr. Ac Crump Work Phone: [facility] 02-18-2023 10:11-0500 Body height 187.[address] Ac fuentes Work Phone: [facility] 02-18-2023 10:11-0500 Body mass index (BMI) [Ratio] 27.1 kg/m2 Dr. Ac Crump Work Phone: [facility] 02-18-2023 10:11-0500 Body weight 95.[address] Ac fuentes Work Phone: [facility] 02-18-2023 10:11-0500 Diastolic blood pressure 75 mm[Hg] Dr. Ac Crump Work Phone: 6(933)341-546549 [place] [address] 02-18-2023 10:11-0500 Heart rate 51 /min Dr. Ac fuentes Work Phone: [facility] 02-18-2023 10:11-0500 Respiratory rate 18 /min Dr. Ac fuentes Work Phone: [facility] 02-18-2023 10:11-0500 Systolic blood pressure 183 mm[Hg] Dr. Ac Crump Work Phone: [facility] 01-08-2023 09:03-0400 Body height 187.[address] Ac fuentes Work Phone: 8(324)963-882149 [place] [address] 01-08-2023 09:03-0400 Body mass index (BMI) [Ratio] 27.2 kg/m2 Dr. Ac Crump Work Phone: 6(079)412-918049 [place] [address] 01-08-2023 09:03-0400 Body weight 96.[address] Ac fuentes Work Phone: [facility] 01-08-2023 09:03-0400 Diastolic blood pressure 78 mm[Hg] Dr. Ac Crump Work Phone: [facility] 01-08-2023 09:03-0400 Heart rate 52 /min Dr. Ac fuentes Work Phone: 6(779)225-968849 [place] [address] 01-08-2023 09:03-0400 Respiratory rate 16 /min Dr. cA fuentes Work Phone: [facility] 01-08-2023 09:03-0400 Systolic blood pressure 166 mm[Hg] Dr. Ac Crump Work Phone: [facility] 10-15-2022 08:53-0400 Body height 187.[address] Ac fuentes Work Phone: [facility] 10-15-2022 08:53-0400 Body mass index (BMI) [Ratio] 28.3 kg/m2 Dr. Ac Crump Work Phone: [facility] 10-15-2022 08:53-0400 Body weight 100.[address] Ac fuentes Work Phone: [facility] 10-15-2022 08:53-0400 Diastolic blood pressure 75 mm[Hg] Dr. Ac Crump Work Phone: [facility] 10-15-2022 08:53-0400 Heart rate 60 /min Dr. Ac fuentes Work Phone: [facility] 10-15-2022 08:53-0400 Respiratory rate 18 /min Dr. Ac fuentes Work Phone: [facility] 10-15-2022 08:53-0400 SaO2% (BldA) [Mass fraction] 93 % Dr. Ac Crump Work Phone: [facility] 10-15-2022 08:53-0400 Systolic blood pressure 150 mm[Hg] Dr. Ac Crump Work Phone: [facility] 10-17-2021 08:41-0400 Body height 187.[address] Ac fuentes Work Phone: [facility] Work Phone: 10-17-2021 08:41-0400 Body mass index (BMI) [Ratio] 26.9 kg/m2 Dr. Ac Crump Work Phone: [facility] Work Phone: 10-17-2021 08:41-0400 Body weight 95.[address] Ac fuentes Work Phone: [facility] Work Phone: 10-17-2021 08:41-0400 Diastolic blood pressure 78 mm[Hg] Dr. Ac Crump Work Phone: [facility] Work Phone: 10-17-2021 08:41-0400 Heart rate 48 /min Dr. Ac fuentes Work Phone: [facility] Work Phone: 10-17-2021 08:41-0400 Respiratory rate 16 /min Dr. Ac fuentes Work Phone: [facility] Work Phone: 10-17-2021 08:41-0400 SaO2% (BldA) [Mass fraction] 95 % Dr. Ac Crump Work Phone: [facility] Work Phone: 10-17-2021 08:41-0400 Systolic blood pressure 161 mm[Hg] Dr. Ac Crump Work Phone: [facility] Work Phone: 06-13-2021 09:35-0500 Body height 187.[address] Ac fuentes Work Phone: [facility] Work Phone: 06-13-2021 09:35-0500 Body mass index (BMI) [Ratio] 26.6 kg/m2 Dr. Ac Crump Work Phone: [facility] Work Phone: 06-13-2021 09:35-0500 Body weight 94.[address] Ac fuentes Work Phone: [facility] Work Phone: 06-13-2021 09:35-0500 Diastolic blood pressure 79 mm[Hg] Dr. Ac Crump Work Phone: [facility] Work Phone: 06-13-2021 09:35-0500 Heart rate 58 /min Dr. Ac fuentes Work Phone: [facility] Work Phone: 06-13-2021 09:35-0500 Respiratory rate 16 /min Dr. Ac fuentes Work Phone: [facility] Work Phone: 06-13-2021 09:35-0500 Systolic blood pressure 140 mm[Hg] Dr. Ac Crump Work Phone: [facility] Work Phone: Encounters Encounter Date Encounter Type Care Provider Facility Start: 01-22-2025 End: 01-22-[address] Nolan Walter MD -[facility] Work Phone: Start: 01-22-2025 End: 01-22-2025 ambulatory Nolan Walter Facility:[facility] Start: 11-03-2024 End: 11-03-[address] Bird Crump MD Work Phone: -[facility] Start: 11-03-2024 End: 11-03-[address] Bird Crump MD -[facility] Start: 11-03-2024 End: 11-03-2024 ambulatory Bird Crump Facility:[facility] Start: 08-24-2024 End: 08-24-2024 Patient encounter procedure Timothy FERRARI -[facility] Work Phone: Start: 08-24-2024 End: 08-24-[address] Bird Crump MD Work Phone: [facility] Work Phone: Start: 08-03-2024 ambulatory Bird Crump Faci lity:[facility] Start: 07-30-2024 End: 07-30-[address] Bird Crump MD -[facility] Start: 07-30-2024 End: 07-30-2024 ambulatory Bird Crump Facility:[facility] Start: 02-24-2024 End: 02-24-2024 [facility] Start: 08-06-2023 End: 08-06-[address] Bird Crump Work Phone: [facility] Work Phone: Start: 08-06-2023 End: 08-06-[address] Bird Crump Work Phone: [facility] Work Phone: Start: 07-17-2023 End: 07-17-[address] Bird Crump Work Phone: [facility] Work Phone: Start: 07-17-2023 End: 07-17-[address] Bird Crump Work Phone: [facility] Work Phone: Start: 07-01-2023 End: 07-01-[address] Ac Crump Work Phone: [facility] Work Phone: Start: 07-01-2023 End: 07-01-[address] Ac Crump Work Phone: [facility] Work Phone: Start: 05-13-2023 End: 05-13-[address] [facility] Work Phone: Start: 03-26-2023 Non-patient / Non-visit Dr. Ac Crump Work Phone: [facility] [facility] Start: 03-26-2023 End: 03-26-[address] Ac Crump [facility] Work Phone: Start: 03-11-2023 Non-patient / Non-visit Dr. Ac Crump Work Phone: [facility] Start: 03-11-2023 End: 03-11-[address] Ac Crump Work Phone: [facility] Work Phone: Start: 03-11-2023 End: 03-11-[address] Ac Crump Work Phone: [facility] Work Phone: Start: 03-05-2023 End: 03-05-[address] Ac Crump Work Phone: [facility] Work Phone: Start: 03-05-2023 End: 03-05-[address] Ac Crump Work Phone: [facility] Work Phone: Start: 03-05-[address] Hollis Crump Work Phone: [facility] Work Phone: Start: 02-18-2023 End: 02-18-[address] Ac Crump Work Phone: [facility] Work Phone: Start: 01-23-2023 End: 01-23-[address] Ac Crump Work Phone: [facility] Work Phone: Start: 01-23-2023 End: 01-23-[address] Ac Crump Work Phone: [facility] Start: 01-18-[address] Hollis Crump Work Phone: [facility] Work Phone: Start: 01-08-2023 End: 01-08-[address] Ac Crump Work Phone: [facility] Work Phone: Start: 12-25-[address] Hollis Crump [facility] Start: 12-24-2022 End: 12-24-[address] Ac Crump Work Phone: [facility] Work Phone: Start: 12-24-2022 End: 12-24-[address] Ac Crump Work Phone: [facility] Start: 12-12-[address] Hollis Crump Work Phone: [facility] Work Phone: Start: 12-05-2022 End: 12-05-[address] Ac Crump Work Phone: [facility] Work Phone: Start: 12-05-2022 End: 12-05-[address] Ac Crump Work Phone: [facility] Work Phone: Start: 10-25-2022 End: 10-25-[address] Ac Crump Work Phone: [facility] Work Phone: Start: 10-25-2022 End: 10-25-[address] Ac Crump Work Phone: [facility] Start: 10-15-2022 End: 10-15-[address] Ac Crump Work Phone: [facility] Work Phone: Start: 09-13-2022 End: 09-13-[address] Ac Crump Work Phone: [facility] Start: 08-29-2022 Non-patient / Non-visit Dr. Ac Crump Work Phone: [facility] Start: 08-29-2022 End: 08-29-[address] Ac Crump Work Phone: [facility] Work Phone: Start: 08-29-2022 End: 08-29-[address] Ac Crump Work Phone: [facility] Start: 08-14-2022 End: 08-14-2022 ambulatory [facility] Work Phone: Start: 08-14-2022 End: 08-14-2022 Patient encounter procedure [facility] Start: 07-27-2022 End: 07-27-2022 ambulatory [facility] Work Phone: Start: 07-27-2022 End: 07-27-2022 Patient encounter procedure [facility] Start: 07-16-2022 End: 07-16-2022 Patient encounter procedure [facility] Start: 05-14-2022 End: 05-14-2022 ambulatory [facility] Work Phone: Start: 05-14-2022 End: 05-14-2022 Patient encounter procedure [facility] Start: 11-09-2021 Non-patient / Non-visit Dr. Ac Crump Work Phone: [facility] Start: 11-09-2021 End: 11-09-[address] Ac Crump Work Phone: [facility] Start: 10-17-2021 End: 10-17-[address] Ac Crump Work Phone: [facility] Start: 07-05-2021 End: 07-05-[address] [facility] Crump [facility] Start: 06-13-2021 End: 06-13-[address] Ac Crump Work Phone: [facility] Procedures Date Procedure Procedure Detail Performing Clinician Start: 12-05-2022 Plain X-ray of shoulder Dr. Ac Crump Work Phone: Start: 07-27-2022 Ultrasound elastogra phy of liver Start: 07-27-2022 CT of chest Start: 11-09-2021 Radionuclide imaging of perfusion of myocardium under exercise stress Dr. Ac Crump Work Phone: Start: 07-07-2019 History of placement of stent for coronary artery disease History of coronary artery stent placement Timothy FERRARI Comment on above: PCI-JADE mid LAD with a 2.5 x 16 mm Promus Synergy 07/07/2019 Payers Date Payer Category Payer Medicare [id number] 2024 Self-pay [id number] 2015 Medicare [id number] Unknown [id number] [id number] Unknown [id number] Unknown [id number] [id number] Unknown [id number] [id number] Unknown [id number] [id number] Unknown [id number] [id number] Social History Date Type Detail Facility Start: 06-13-2021 End: 05-13-2023 Tobacco smoking status NHIS Unknown if ever smoked [facility] Start: 07-06-2019 Occasional [facility] Start: 07-06-2019 Spouse/ Signif icant Other [facility] Start: 1945 Sex Assigned At Male [facility] Start: 05-13-2023 Tobacco smoking status NHIS Ex-smoker (finding) [facility] Sex Male [facility] Progress note 01-22-2025 Note Date & Type Note Facility 01-22-2025 Progress note [facility] Evaluation note 08-24-2024 Note Date & Type Note Facility 08-24-2024 Evaluation note Diagnosis Onset Date Resolution Essential hypertension chronic August 24, 2024 8:48am Hyperlipidemia chronic August 24, 2024 8:48am Paroxysmal atrial fibrillation chronic August 24, 2024 8:48am History of coronary artery stent placement July 07, 2019 resolved August 24, 2024 8:48am [facility] Work Phone: Evaluation note 07-07-2019 Note Date & Type Note Facility 07-07-2019 Evaluation note Diagnosis Onset Date Paroxysmal atrial fibrillation acute Essential hypertension chron ic Hyperlipidemia chronic History of coronary artery stent placement July 07, 2019 resolved [facility] Work Phone: Evaluation note 07-07-2019 Note Date & Type Note Facility 07-07-2019 Evaluation note Diagnosis Onset Date Essential hypertension chron ic Hyperlipidemia chronic Paroxysmal atrial fibrillation chronic History of coronary artery stent placement July 07, 2019 resolved [facility] Work Phone: Evaluation note 07-07-2019 Note Date & Type Note Facility 07-07-2019 Evaluation note Diagnosis Onset Date Essential hypertension chron ic Hyperlipidemia chronic Paroxysmal atrial fibrillation chronic History of coronary artery stent placement July 07, 2019 resolved Essential hypertension chron ic Hyperlipidemia chronic Paroxysmal atrial fibrillation chronic History of coronary artery stent placement July 07, 2019 resolved [facility] Work Phone: Evaluation note Note Date & Type Note Facility Evaluation note No assessment information availa ble [facility] Work Phone: Evaluation note Note Date & Type Note Facility Evaluation note Diagnosis Onset Date Resolution Essential hypertension chronic August 24, 2024 8:48am Hyperlipidemia chronic August 24, 2024 8:48am Paroxysmal atrial fibrillation chronic August 24, 2024 8:48am History of coronary artery stent placement July 07, 2019 resolved August 24, 2024 8:48am [facility] Work Phone: Evaluation note Note Date & Type Note Facility Evaluation note Diagnosis Onset Date Resolution Essential hypertension chronic January 22, 2025 12:58pm Hyperlipidemia chronic January 222024 12:58pm Paroxysmal atrial fibrillation chronic January 22, 2025 12:58pm History of coronary artery stent placement July 07, 2019 resolved January 22, 2025 12:58pm [facility] Work Phone: Progress note Note Date & Type Note Facility Progress note Note Date/Time January 22, 2025 1:29pm [facility] [address] [place] [address] OFFICE VISIT Date of Service: 01/22/25 MR#: [id number] Acct: [id number] Name: FADY TERRY VITALY Rep #: [id number] : 1945 Provider: Dr. Eleazar Walter MD Age/Sex: 79/M Location: [facility] Status: Signed HPI HPI History of Present Illness Details: This is a 79-year-old gentleman that presents here today for a cardiovascular follow-up. In June 2019, he presented to the emergency room with a non-STEMI. He did undergo a diagnostic heart catheterization and was found to have single-vessel coronary disease of his mid LAD. This was stented. He also has a history of hypertension, hyperlipidemia, and paroxysmal atrial fibrillation. He denies chest, arm, jaw, or neck discomfort. He denies palpitations. He states mild, bilateral lower extremity edema that is unchanged from previous. He denies claudication. He states occasional shortness of breath with activity that he contributes to history of COPD. He denies shortness of breath at rest, orthopnea, or PND. He denies chronic cough. He denies significant, sudden weight gain. He denies lightheadedness, dizziness, near-syncope, or syncope. He denies blood in urine, blood in stool, or epistaxis. He denies fever with chills. He denies myalgia. He denies fatigue. His exercise level has remainedstable. He tells me that his heart rate was going low and so he was asked to reduce his carvedilol to once a day. Intake Vital Signs 12/03/23 10:16 08/24/24 09:40 01/22/25 13:13 Height 6 ft 2 in 6 ft 2 in 6 ft 2 in Weight: 211 lb BMI 27.1 BP 148/77 H Blood Pressure Location Lt brachial Position Sitting Respiration 16 Pulse 53 L Pulse Source Monitor Intake Visit Reasons: 1 Y FU [employer] Manager Required: No Accompanied by: Self Is patient in pain?: No Allergies No Known Allergies Allergy (Verified 01/22/25 13:15) Medications ?Medication ?Instructions ?Recorded ?Confirmed ?Type losartan 50 mg tablet 100 mg PO DAILY 02/03/20 History tadalafil 20 mg tablet 20 mg PO ONCE PRN 06/13/21 1 History loperamide 2 mg-simethicone 125 mg 0.5 tab PO Q OTHER DAY PRN 02/18/23 01/22/25 History tablet (Anti-Diarrheal (loperamide) - Anti-Gas) levothyroxine 100 mcg tablet 100 mcg PO DAILY 12/03/23 01/22/25 History apixaban 5 mg tablet (Eliquis) 5 mg PO BID #60 tabs 01/22/25 Rx amiodarone 200 mg tablet 100 mg (1/2 x 200 mg) PO QDA Y #45 07/31/24 01/22/25 Rx tabs amlodipine 10 mg tablet 10 mg PO QDAY 08/24/2401/22 History atorvastatin 80 mg tablet 80 mg PO QHS #90 tabs 01/22/25 Rx clopidogrel 75 mg tablet 75 mg PO QDAY #90 tabs 10/1601/22/25 Rx Ejection fraction %: 65 Have you fallen in the past year?: No [facility] Medical History Dupuytren contracture of both hands Arthritis First degree atrioventricular block Bradycardia 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 (congestive heart failure) Paroxysmal atrial fibrillation Essential hypertension Hyperlipidemia NSTEMI (non-ST elevated myocardial infarction) (07/06/19) Atherosclerosis of coronary artery of [place] heart without angina pectoris Paroxysmal atrial fibrillation with RVR Surgical History History of bilateral inguinal hernia repair (2014) History of coronary artery stent placement (07/07/19) Family History Mother , of [place] in her 60's CAD (coronary artery disease) Myocardial infarction Brother Hypertension Social History Smoking Status: Former smoker how long ago did patient quit smoking: December 2018 alcohol intake: current alcohol intake frequency: 0-2 drinks per day Alcohol type: wine and hard liquor substance use type: does not use caffeine: Yes Type: coffee Number of servings: 1 ROS Const Const: Negative for fatigue, weakness, daytime sleepiness or difficulty sleeping ENT ENT: Negative for dizziness or Nosebleed/epistaxis Cardio Chest Pain: No Palpitations: No Edema: Bilateral (BLE trace at times ) Resp Respiratory: Negative for SOB with activity, SOB at rest, SOB orthopnea\SOB lying down or Cough GI GI: Negative nausea, vomiting or heartburn Neuro Neuro: Negative for dizziness, lightheadedness, near syncope or weakness Endo Endo: Negative for fatigue Cardiology Exam Const Appearance: cooperative, healthy appearing, comfortable and no acute distress Nutritional Appearance: well nourished and overweight Orientation: alert, awake and oriented x3 Head Head: normal to inspection Ears: hearing grossly normal bilaterally Nose: external nose normal Face and Sinus: face symmetric Mouth: moist mucous membranes Eyes General: appearance normal, both eyes and all related structures Eyelids: eyelids normal EOM: EOM intact bilaterally Neck Neck: normal visual inspection and no JVD Carotids: normal carotid upstroke Chest Chest inspection: normal inspection of the chest, symmetric chest movement and normal respiratory effort; Negative cough Auscultation: Bilateral: Clear to Auscultation Cardio Rate: regular rate and bradycardic Rhythm: regular rhythm Heart sounds: S1 normal and S2 normal; Negative rub, gallop or murmur GI GI: normal to inspection Neuro General: patient alert, patient awake, patient oriented x3 and CN's II-XI intactbilaterally Skin Skin: no rashes or lesions noted Extremities Pulses: Normal: Right Posterior Tibial Pulse, Left Posterior Tibial Pulse, RightRadial Pulse and Left Radial Pulse Lower Extremity Edema: None: Right and Trace: Left Psych Psychological: normal affect Supplemental Info Supplemental Information Echocardiogram 11/21/2023 Interpretation Summary Mild concentric left ventricular hypertrophy. The left ventricular ejection fraction is 65 %. Stage 1 diastolic dysfunction. The ascending aorta appears to be mild to moderately dilated. Recommend CT scan for further evaluation. Echocardiogram 04/06/2020: Interpretation Summary Normal LV size. Left ventricular systolic function is lower limits of normal. The estimated ejection fraction is 50 %. Unable to assess diastolic dysfunction due to arrhythmia. Structurally normal valves. Stress Test 11/09/2021 Conclusion: Normal exercise myocardial perfusion stress test at a low workload. Low workload may affect sensitivity for detection of ischemia. Preserved ejection fraction noted. Heart Catheterization/Coronary Intervention 07/07/2019 DOMINANCE: Right Dominant LEFT HEART ASSESSMENT Left Ventricular Ejection Fraction: by LV Gram 65 % Normal Left Ventricular systolic function LVEDP: 24 mmHg Elevated Left Ventricular End Diastolic Pressure Normal LV wall motion LEFT MAIN:Mild calcification LEFT ANTERIOR DESCENDING ARTERY: PROX LAD: Mild luminal irregularities less than 30%, Moderate calcification MID LAD: Mild calcification, 75 % Stenosis, Mild luminal irregularities less than 30% DISTAL LAD: Mild luminal irregularities less than 30% CIRCUMFLEX ARTERY: Mild luminal irregularities less than 30% RIGHT CORONARY ARTERY: Mild luminal irregularities less than 30% MID RCA: Mild luminal irregularities less than 30% RT PDA: Proximal - Mild luminal irregularities less than 30% Intervention Successful PTCA/JADE mid LAD with a 2.5 x 16 Promus Synergy, post dilated distally with a 3.0 x 8 NC, followed upstream with post dilatation with a 3.5 x8NC balloon; 75%-->0%, no dissection. Carotid Duplex 10/03/2020 Interpretation Summary Irregular calcific plaque with shadowing at the right carotid bulb with extension to the proximal right internal carotid artery Less than 50% stenosis right internal carotid artery Less than 50% stenosis right external carotid artery Intimal thickening at the proximal left internal carotid artery with less than 50% stenosis Less than 50% stenosis left external carotid artery Patent and antegrade vertebral arteries bilaterally Labs: HDL Cholesterol, (40-) 63 mg/dL Cholesterol, (<=200) 111 mg/dL Triglycerides, (-199) 55 mg/dL Diagnostics: Electrocardiogram Echocardiogram Stress Test Stress Test Nuclear Medicine Cardiac Intervention Chest X-Ray Carotid Duplex Renal Artery Duplex Pulmonary: Pulmonary Function Test Past Visits: Cardiology Visit Today Assessment and Plan Assessment and Plan (1) History of coronary artery stent placement: Status: Resolved Comment: PCI-JADE mid LAD with a 2.5 x 16 mm Promus Synergy 07/07/2019 Plan: Stress test in November 2021 was negative for ischemia. This appears stable. We will continue to monitor and not make any medication regimen changes. We will continue to promote risk factor and lifestyle modification. (2) Paroxysmal atrial fibrillation: Status: Chronic Plan: Patient has paroxysmal atrial fibrillation. Currently in sinus rhythm his rhythm monitor demonstrates his heart rhythm between 40 and 50 bpm. I would recommend we discontinue the carvedilol. (3) Essential hypertension: Status: Chronic Plan: He underwent a renal ultrasound that showed no significant stenosis in March 2023. His home blood pressure readings are well-controlled. He has a copy with extensive readings which have been normal. At this time, he will continue current medical therapy and we will continue to monitor. (4) Hyperlipidemia: Status: Chronic Qualifiers: Hyperlipidemia type: unspecified Qualified Code(s): E78.5 - Hyperlipidemia, unspecified Plan: He will continue atorvastatin. Lipid panel in July 2024 showed total cholesterol: 111, HDL: 63, LDL: 37, and triglycerides: 55. The patient was reminded of LDL goal of 70 and below for secondary prevention. This is monitor with PCP. Medications: Discontinued carvedilol must administer with a meal/food Discontinued Reason: Order Changed 3.125 mg PO QHS Coding Level of Care Code Off vis,est,level 4 Diagnoses History of coronary artery stent placement Z95.5 Paroxysmal atrial fibrillation I48.0 Essential hypertension I10 Hyperlipidemia, unspecified hyperlipidemia type E78.5 Hyperlipidemia type: unspecified Coding Level of Care Code Off vis,est,level 4 Diagnoses History of coronary artery stent placement Z95.5 Paroxysmal atrial fibrillation I48.0 Essential hypertension I10 Hyperlipidemia, unspecified hyperlipidemia type E78.5 Hyperlipidemia type: unspecified Clinical Quality Measures Falls Risk Screening/Assistive Devices Have you fallen in the past year?: No Cardiac Ejection fraction %: 65 01/22/25 [id number] <Electronically signed by [place] Saba M D> Date _ Nolan Booth Signature: Date (if applicable) CC: Dr. 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 Reason for Visit Paroxysmal atrial fi brillation Essential hypertension Hyperlipidemia History of coronary artery stent placement Chief Complaint 1 Y FU CAD Coronary artery disease Reason for Visit Paroxysmal atrial fi brillation Essential hypertension Hyperlipidemia History of coronary artery stent placement Chief Complaint ELEVATED LFTS Chief Complaint ELEVATED LFTS E ORDER Chief Complaint ELEVATED LFTS E ORDER PEDAL EDEMA Chief Complaint ELEVATED LFTS E ORDER PEDAL EDEMA 1 Y FU Reason for Visit Essential hypertensi on Hyperlipidemia Paroxysmal atrial fibrillation History of coronary artery stent placement Chief Complaint PEDAL EDEMA 1 Y FU EORDER RIGHT SHOULDER OA / RX HERE Reason for Visit Essential hypertensi on Hyperlipidemia Paroxysmal atrial fibrillation History of coronary artery stent placement Chief Complaint 1 Y FU EORDER RIGHT SHOULDER OA / RX HERE Reason for Visit Essential hypertensi on Hyperlipidemia Paroxysmal atrial fibrillation History of coronary artery stent placement Chief Complaint 1 Y FU EORDER 3 M FU RIGHT SHOULDER OA / RX HERE Reason for Visit Essential hypertensi on Hyperlipidemia Paroxysmal atrial fibrillation History of coronary artery stent placement Essential hypertension Hyperlipidemia Paroxysmal atrial fibrillation History of coronary artery stent placement Chief Complaint EORDER 3 M FU 6 W FU RIGHT SHOULDER OA / RX HERE CLAUDICATION Reason for Visit Essential hypertensi on Hyperlipidemia Paroxysmal atrial fibrillation History of coronary artery stent placement Essential hypertension Hyperlipidemia Paroxysmal atrial fibrillation History of coronary artery stent placement Chief Complaint RIGHT SHOULDER OA / RX HERE CLAUDICATION HYPERTENSION 3 M FU Reason for Visit Essential hypertensi on Hyperlipidemia Paroxysmal atrial fibrillation History of coronary artery stent placement Chief Complaint CLAUDICATION HYPERTENSION 3 M FU EORDER Reason for Visit Essential hypertensi on Hyperlipidemia Paroxysmal atrial fibrillation History of coronary artery stent placement Chief Complaint HYPERTENSION 3 M FU EORDER EORDER Reason for Visit Essential hypertensi on Hyperlipidemia Paroxysmal atrial fibrillation History of coronary artery stent placement Chief Complaint 3 M FU EORDER EORDER EORDER Reason for Visit Essential hypertensi on Hyperlipidemia Paroxysmal atrial fibrillation History of coronary artery stent placement Chief Complaint Admit Date 6 M FU August 24, 2024 8:48a m Reason for Visit Admit Date Essential hypertension August 24, 2024 8: 48am Hyperlipidemia August 24, 2024 8:48a m Paroxysmal atrial fibrillation August 24, 2024 8:48am History of coronary artery stent placeme nt August 24, 2024 8:48am Chief Complaint Admit Date 1 Y FU January 22, 2025 1 2:58pm Reason for Visit Admit Date Essential hypertension January 22 12:58pm Hyperlipidemia January 22, 2025 1 2:58pm Paroxysmal atrial fibrillation January 062024 12:58pm History of coronary artery stent placeme nt January 22, 2025 12:58pm Family History Relationship Condition Age at Onset Recorded Date/T ginny mother Coronary artery disease Unknown Myocardial infarction Unknown brother Hypertension Unknown Advance Directives Advance Directive Response Recorded Date/ Time Advance Directives Yes February 9:24am Living Will Yes July 07, 2019 12:18am Power of Side Stitcher No July 06 12:18am Advance Directive Response Recorded Date/ Time Advance Directives Yes February 8:24am Living Will Yes July 06, 2019 11:18pm Power of Side Stitcher No July 05 11:18pm Advance Directive Response Recorded Date/ Time Advance Directives Yes February 9:24am Advance Directive Response Recorded Date/ Time Living Will Yes July 07, 2019 12:18am Do you have a Healthcare Power of Side Stitcher? No July 07, 2019 12:18am Advance Directives Yes February 9:24am Summary Purpose Additional Source Comments Goals (unrecognized section and content) Goals may be documented in a n alternate sectionGoals may be documented in an alternate sectionGoals may be documented in an alternate sectionGoals may be documented in an alternate sectionGoals may be documented in an alternate sectionGoals may be documented in an alternate sectionGoals may be documented in an alternate sectionGoals may be documented in an alternate sectionGoals may be documented in an alternate sectionGoals may be documented in an alternate sectionGoals may be documented in an alternate sectionGoals may be documented in an alternate sectionGoals may be documented in an alternate sectionGoals may be documented in an alternate sectionGoals may be documented in an alternate sectionGoals may be documented in an alternate sectionGoals may be documented in an alternate sectionGoals may be documented in an alternate section Care Teams (unrecognized sec tion and content) Team Status: Active Member Role Status Dates Dr. Ac Crump MD Family Provider Active Dr. Ac Crump MD Primary Care Provider Activ e Team Status: Inactive Member Role Status Dates Dr. Ac Crump MD Primary Care Provider, Attending Provider, Referring Provider Active Team Status: Inactive Member Role Status Dates Dr. Ac Crump MD Primary Care Provider, Atte nding Provider Active Team Status: Active Member Role Status Dates Dr. Ac Crump MD Primary Care Provider Activ e Dr. Nolan Walter MD Attending Provider Active Team Status: Inactive Member Role Status Dates Dr. Ac Crump MD Primary Care Provider, Refe rring Provider Active Timothy Baird PROFESSOR OF OCEANOGRAPHY, PROFESSOR OF OCEANOGRAPHY-C Attending Provider Active Team Status: Active Member Role Status Dates Dr. Ac Crump MD Primary Care Provider, Attending Provider, Referring Provider Active Team Status: Active Member Role Status Dates Dr. Ac Crump MD Primary Care Provider Activ e Dr. Anton Perdomo MD Attending Provider Active Team Status: Active Member Role Status Dates Dr. Ac Crump MD Primary Care Provider, Refe rring Provider Active Dr. Anton Perdomo MD Attending Provider Active Team Status: Inactive Member Role Status Dates Dr. Ac rCump MD Primary Care Provider Activ e Timothy Baird PROFESSOR OF OCEANOGRAPHY, PROFESSOR OF OCEANOGRAPHY-C Attending Provider, Referring Pro vider Active Team Status: Active Member Role Status Dates Dr. Bird Crump MD Family Provider Active Dr. Bird Crump MD Primary Care Provider Acti ve Team Status: Inactive Member Role Status Dates Dr. Bird Crump MD Primary Care Provider, Ref erring Provider Active Timothy Baird PROFESSOR OF OCEANOGRAPHY, PROFESSOR OF OCEANOGRAPHY-C Attending Provider Active Team Status: Active Member Role Status Dates Dr. Bird Crump MD Primary Care Provider, Ref erring Provider Active Dr. Anton Perdomo MD Attending Provider Active Team Status: Inactive Member Role Status Dates Dr. Bird Crump MD Primary Care Provider, Attending Provider, Referring Provider Active Team Status: Inactive Member Role Status Dates Dr. Bird Crump MD Primary Care Provider Acti ve Timothy Baird PROFESSOR OF OCEANOGRAPHY, PROFESSOR OF OCEANOGRAPHY-C Attending Provider, Referring Pro vider Active Team Status: Inactive Member Role Status Dates Dr. Bird Crump MD Primary Care Provider Acti ve Consuelo Esparza PROFESSOR OF OCEANOGRAPHY, PROFESSOR OF OCEANOGRAPHY-C Attending Provider, Referring P camille Active Team Status: Active Member Role Status Dates Dr. Bird Crump MD Primary Care Provider Acti ve Team Status: Inactive Member Role Status Dates Dr. Bird Crump MD Primary Care Provider Acti ve Start: July 30, 2024 End: July 30, 2024 Dr. Bird Crump MD Attending Provider Active Start: July 30, 2024 End: July 30, 2024 Dr. Bird Crump MD Referring Provider Active Start: July 30, 2024 End: July 30, 2024 Team Status: Inactive Member Role Status Dates Dr. Bird Crump MD Primary Care Provider Acti ve Start: August 24, 2024 End: August 24, 2024 Dr. Bird Crump MD Referring Provider Active Start: August 24, 2024 End: August 24, 2024 Timothy Baird PROFESSOR OF OCEANOGRAPHY, PROFESSOR OF OCEANOGRAPHY-C Attending Provider Active S tart: August 24, 2024 End: August 24, 2024 Team Status: Active Member Role/Relationship Status Dates Dr. Bird Crump MD Primary Care Provider Acti ve Team Status: Inactive Member Role/Relationship Status Dates Dr. Bird Crump MD Primary Care Provider Acti ve Start: July 30, 2024 End: July 30, 2024 Dr. Bird Crump MD Attending Provider Active Start: July 30, 2024 End: July 30, 2024 Dr. Bird Crump MD Referring Provider Active Start: July 30, 2024 End: July 30, 2024 Team Status: Inactive Member Role/Relationship Status Dates Dr. Bird Crump MD Primary Care Provider Acti ve Start: August 24, 2024 End: August 24, 2024 Dr. Bird Crump MD Referring Provider Active Start: August 24, 2024 End: August 24, 2024 Timothy Baird PROFESSOR OF OCEANOGRAPHY, PROFESSOR OF OCEANOGRAPHY-C Attending Provider Active S tart: August 24, 2024 End: August 24, 2024 Team Status: Inactive Member Role/Relationship Status Dates Dr. Bird Crump MD Primary Care Provider Acti ve Start: November 03, 2024 End: November 03, 2024 Dr. Bird Crump MD Attending Provider Active Start: November 03, 2024 End: November 03, 2024 Dr. Bird Crump MD Referring Provider Active Start: November 03, 2024 End: November 03, 2024 Team Status: Active Member Role/Relationship Status Dates Dr. Bird Crump MD Primary care physician Act bandar Team Status: Inactive Member Role/Relationship Status Dates Dr. Bird Crump MD Primary care physician Act bandar Start: November 03, 2024 End: November 03, 2024 Dr. Bird Crump MD Attending physician Active Start: November 03, 2024 End: November 03, 2024 Dr. Bird Crump MD Referring Provider Active Start: November 03, 2024 End: November 03, 2024 Team Status: Inactive Member Role/Relationship Status Dates Dr. Bird Crump MD Primary care physician Act bandar Start: January 22, 2025 End: January 22, 2025 Dr. Bird Crump MD Referring Provider Active Start: January 22, 2025 End: January 22, 2025 Dr. Nolan Walter MD Attending physician Active Start: January 22, 2025 End: January 22, 2025 (unrecognized sect ion and content) No Status Records Found INFORMATION SOURCE (unrecogn ized section and content) DATE CREATED AUTHOR 01/24/2025 [facility] FOR RECORDS PERTAINING TO PATIENTS WHO ARE OR HAVE BEEN ENROLLED IN A CHEMICAL DEPENDENCY/SUBSTANCEABUSE PROGRAM, SOME INFORMATION MAY BE OMITTED. This clinical summary was aggregated from multiple sources. Caution should be exercised in using it in the provision of clinical care. This summary normalizes information from multiple sources, and as a consequence, information in this document may materially change the coding, format and clinical context of patient data. In addition, data may be omitted in some cases. CLINICAL DECISIONS SHOULD BE BASED ON THE PRIMARY CLINICAL RECORDS. [facility] [employer] [facility]. provides no warranty or guarantee of the accuracy or completeness of information in this document.
== END | disposition home or self-care (01) ==
LOC: MFPLAB 09:46
PROVIDERS: PCP Family Medicine; Visit Provider Family Medicine
DX: E03.9 Hypothyroidism, unspecified (principal)
CPT/HCPCS: 36415; 84439; 84443